=== PATIENT | female | born 1985 | race Caucasian/White ===

== ENCOUNTER 2019-11-08 10:54 | Emergency (ER) | payer BC, MEDICARE, MEDICAID, SELFPAY ==
--- NOTE | ~2019-11-08 | XR_ITS ---
EXAMINATION: XR chest 2V 11/08/2019 12:51 INDICATION: Chest pain PROCEDURE: 2 view chest COMPARISON: Comparison to multiple prior studies sequentially, with oldest reviewed study dated 01/17. FINDINGS: The lungs are clear. The cardiomediastinal silhouette is within normal limits. There are no pleural effusions. There is no pneumothorax suspected. IMPRESSION: 1: NO ACUTE CARDIOPULMONARY DISEASE. Reviewed, dictated and finalized at location A.
[2019-11-08 11:34] VITALS: PULSE 68; RESP 17; TEMP 36.1; O2SAT 99
--- NOTE | 2019-11-08 11:34 | ECG_ITS ---
Measurements Intervals [place] Rate: 63 P: 47 [place]: 144 QRS: 39 QRSD: 96 T: 28 QT: 388 QTc: 400 Interpretive Statements SINUS RHYTHM INCOMPLETE RIGHT BUNDLE BRANCH BLOCK BORDERLINE ECG Electronically Signed On 11-08-2019 11:38:43 CDT by Esdras Alfredo D.O.
[2019-11-08 11:47] LABS: Basophils Percent Auto 0.3 % (0.2-1.2); Eosinophils Absolute Auto 0.1 K/mm3 (0-0.3); Eosinophils Percent Auto 0.9 % (0-4.4); Hemoglobin 14.5 g/dL (12.0-15.0); Immature Granulocyte Absolute 0.01 K/mm3 (0.00-0.031); Immature Granulocyte Percent A 0.1 % (0-0.5); Lymphocytes Absolute Auto 2.01 K/mm3 (0.9-3.2); Lymphocytes Percent Auto 29.8 % (18.3-44.2); Mean Corpuscular Hemoglobin 28.3 pg (26-34); Mean Corpuscular Volume 85.9 fl (80-100); Monocytes Absolute Auto 0.3 K/mm3 (0.1-0.6); Monocytes Percent Auto 4.1 % (2.6-8.5); Neutrophils Absolute Auto 4.4 K/mm3 (1.3-6.7); Neutrophils Percent Auto 64.8 % (45.5-73.1); Platelet Count Result 249 k/mm3 (150-375); Red Blood Count 5.12 M/mm3 (4.2-5.4); Red Cell Distribution Width 11.9 % (11.5-14.5); White Blood Count 6.8 K/mm3 (4.5-10.0)
[2019-11-08 11:56] LABS: Anion Gap 8 mmol/L (8-16); Blood Urea Nitrogen 9 mg/dL (7-17); Calcium 9.5 mg/dL (8.4-10.2); Carbon Dioxide 23 mmol/L (22-30); Chloride 106 mmol/L (98-107); Estimated CRCL calculation 117 ml/min; Estimated Glomerular Filt Rate > 60; Glucose 100 mg/dL (65-105); Potassium 4.2 mmol/L (3.4-5.0); Sodium 137 mmol/L (137-145)
[2019-11-08 11:59] LABS: Prothrombin Time 12.5 Seconds (11.1-14.7)
[2019-11-08 12:00] LABS: Partial Thromboplastin Time 25.2 SECONDS (22.3-36.8)
[2019-11-08 12:08] LABS: Troponin I < 0.012 ng/mL (0.000-0.034)
[2019-11-08 13:28] VITALS: BP 120/65; PULSE 64; RESP 16; TEMP 35.9; O2SAT 98
[2019-11-08 16:18] VITALS: BP 133/84; PULSE 70; RESP 18; TEMP 36.4; O2SAT 100
[2019-11-08 16:48] VITALS: PULSE 55
[2019-11-08 17:23] LABS: Troponin I 0.013 ng/mL (0.000-0.034)
--- NOTE | 2019-11-08 17:31 | ED.CHESTPAIN ---
HPI - Chest Pain General Chief Complaint: Chest Pain Stated Complaint: mid chest pain Time Seen by Provider: 11/08/19 17:12 Source: patient Mode of arrival: ambulatory Limitations: no limitations History of Present Illness HPI narrative: This is a 34 year old female that presents to the ER for chest pain x 1 week. Reports it had been intermittent and then was more constant today. Reports the pain is burning and sharp. She tried some OTC medications today with little relief. Does report history of heartburn. Denies fever, cough, shortness of breath, lower extremity edema or recent travel or surgery. Related Data Home Medications Medication Instructions Recorded Confirmed bupropion HCl [Wellbutrin XL] 300 mg PO QAM 12/24/18 09/21/19 clonazepam [Klonopin] 0.5 mg PO BID 12/24/18 09/21/19 fluoxetine [Prozac] 40 mg PO DAILY 12/24/18 09/21/19 lamotrigine [Lamictal] 100 mg PO BID 12/24/18 09/21/19 levomefolate calcium 15 mg PO DAILY 12/24/18 09/21/19 [L-Methylfolate] prazosin 2 mg PO BID 12/24/18 09/21/19 propranolol 10 mg PO Q12H 12/24/18 09/21/19 topiramate [Topamax] 150 mg PO DAILY 12/24/18 09/21/19 trazodone 150 mg PO HS 12/24/18 09/21/19 lurasidone 40 mg tablet 80 mg PO DAILY tablet 09/21/19 09/21/19 Allergies Allergy/AdvReac Type Severity Reaction Status Date / Time bacitracin Allergy Mild unknown Verified 11/08/19 11:38 adhesive tape Allergy Unknown Unknown Verified 11/08/19 11:38 benzalkonium chloride Allergy Unknown uknown Verified 11/08/19 11:38 gramicidin D Allergy Unknown unknown Verified 11/08/19 11:38 hydrocortisone Allergy Unknown unknown Verified 11/08/19 11:38 iodine Allergy Unknown unknown Verified 11/08/19 11:38 neomycin Allergy Unknown unknown Verified 11/08/19 11:38 polymyxin B Allergy Unknown unknown Verified 11/08/19 11:38 shellfish derived Allergy Unknown unknown Verified 11/08/19 11:38 Sulfa (Sulfonamide Allergy Unknown uknown Verified 11/08/19 11:38 Antibiotics) SHELLFISH Allergy Severe Swelling Uncoded 11/08/19 11:38 BACITRACIN ZINC Allergy Unknown unknown Uncoded 11/08/19 11:38 NEOMYCIN SULFATE Allergy Unknown unknown Uncoded 11/08/19 11:38 POLYMYXIN B SULFATE Allergy Unknown uknown Uncoded 11/08/19 11:38 Review of Systems Review of Systems: Narrative: CONSTITUTIONAL: Denies fever CARDIOVASCULAR: Reports chest pain. Denies edema. RESPIRATORY: Denies cough or dyspnea. GASTROINTESTINAL: Reports abdominal pain, nausea. Denies vomiting GENITOURINARY: Denies dysuria All systems reviewed & are unremarkable except as noted in HPI and below PMFSH Social History Social History Smoking status: Never smoker Second hand tobacco smoke exposure: No Alcohol intake: never Gender identity (if verbalized by the patient): Female Exam Narrative: Exam Narrative: GENERAL: Well-appearing, obese, and in no acute distress. HEAD: Normocephalic, atraumatic. EYES: EOMI. CHEST: Clear to auscultation. No respiratory distress. No wheezes rales or rhonchi HEART: Regular rate and rhythm. No murmur heard. Normal peripheral pulses. ABDOMEN: Soft, nondistended, normal active bowel sounds. Tender to palpation in the epigastrium, without guarding EXTREMITIES: Normal range of motion. No edema. SKIN: Warm, dry, no rash. NEURO: No focal deficits. Alert and oriented x3. PSYCH: Normal mood and affect Course Vital Signs Vital signs: Vital Signs Temperature 97.0 F L 11/08/19 11:34 Pulse Rate 68 11/08/19 11:34 Respiratory Rate 17 11/08/19 11:34 Pulse Oximetry 99 11/08/19 11:34 Temperature 97.5 F L 11/08/19 16:18 Pulse Rate 55 L 11/08/19 16:48 Respiratory Rate 18 11/08/19 16:18 Blood Pressure 133/84 11/08/19 16:18 Pulse Oximetry 100 11/08/19 16:18 MDM - Chest Pain MDM Narrative Medical decision making narrative: Patient presents to the emergency department for burning epigastric/chest pain since this morning. She is afebril
[2019-11-08] MEDS: BELLADONNA ALK/PHENOB ELIX 10 ML, MAG HYDROX/ALUMINUM HYD/SIMETH 30 ML, LIDOCAINE HCL 2... PO (17:45)
[2019-11-08] MEDS: FAMOTIDINE 20 MG/2 ML VIAL IV PUSH (17:46)
[2019-11-08 17:48] LABS: Alanine Aminotransferase 14 U/L (4-35); Albumin Level 4.3 g/dL (3.5-5.1); Alkaline Phosphatase 80 U/L (38-126); Aspartate Amino Transferase 22 U/L (14-36); Bilirubin,Total 0.2 mg/dL (0.2-1.3); Lipase 33 U/L (23-300)
[2019-11-08 19:32] VITALS: BP 112/62
== END 2019-11-08 19:33 | disposition home or self-care (01) ==
PROVIDERS: Emergency Medicine; Physician Assistant; Emergency Provider Emergency Medicine; PCP Family Medicine
DX: R07.9 Chest pain, unspecified (principal); I45.10 Unspecified right bundle-branch block
CPT/HCPCS: 36415; 71046; 80048; 80076; 83690; 84484; 85025; 85610; 85730; 93005; 96374; 99284; A9270

== ENCOUNTER 2019-11-25 10:03 | Outpatient (CLI) | payer BC, MEDICARE, MEDICAID, SELFPAY ==
--- NOTE | 2019-11-25 10:11 | EST_ITS ---
Patient Info Name: Sharona Thompson Age: 34 years : 1985 Gender: Female Ht: 64 in Wt: 240 lbs BSA: 2.27 m2 Exam Date: 11/25/2019 11:18 AM Exam Location: [facility] Stress Patient Status: Outpatient Admit Date: 11/25/2019 Staff Ordering Physician: Kristin Slade PA-C Attending Provider: Veronica Weber MD Exercise Technologist: Lakesha Fong RDCS Exercise Physician: Esdras Alfredo DO Exam Type: CA stress test treadmill Study Info Indications R07.9 - Chest pain, unspecified A treadmill exercise stress test was performed. Summary 1. 1. Negative Eladio exercise stress test for ischemic ST changes by ECG criteria. However patient only achieved 71% MPHR which reduces sensitivity of the test. 2. 2. Appropriate HR response to exercise. 3. 3. Appropriate HR recovery at 1 minute post exercise. 4. 4. No imaging with stress testing. 5. 5. Patient informed of the above results. Protocol: Eladio Stress ECG Details Stage: REST Duration (min): 5 min : 24 sec Speed (mph): 0.0 Grade (%): 0 HR (bpm): 65 SBP (mmHg): 107 DBP (mmHg): 63 METS: --- Stage: REST Duration (min): 22 min : 7 sec Speed (mph): 0.0 Grade (%): 0 HR (bpm): 77 SBP (mmHg): 107 DBP (mmHg): 63 METS: --- Stage: STAGE 1 Duration (min): 1 min : 0 sec Speed (mph): 1.7 Grade (%): 10 HR (bpm): 96 SBP (mmHg): 107 DBP (mmHg): 63 METS: --- Stage: STAGE 1 Duration (min): 2 min : 0 sec Speed (mph): 1.7 Grade (%): 10 HR (bpm): 105 SBP (mmHg): 107 DBP (mmHg): 63 METS: --- Stage: STAGE 1 Duration (min): 3 min : 0 sec Speed (mph): 1.7 Grade (%): 10 HR (bpm): 111 SBP (mmHg): 107 DBP (mmHg): 63 METS: --- Stage: STAGE 2 Duration (min): 1 min : 0 sec Speed (mph): 2.5 Grade (%): 12 HR (bpm): 118 SBP (mmHg): 107 DBP (mmHg): 63 METS: --- Stage: STAGE 2 Duration (min): 2 min : 0 sec Speed (mph): 2.5 Grade (%): 12 HR (bpm): 126 SBP (mmHg): 107 DBP (mmHg): 63 METS: --- Stage: STAGE 2 Duration (min): 3 min : 0 sec Speed (mph): 2.5 Grade (%): 12 HR (bpm): 130 SBP (mmHg): 107 DBP (mmHg): 63 METS: --- Stage: STAGE 3 Duration (min): 0 min : 6 sec Speed (mph): 3.4 Grade (%): 14 HR (bpm): 130 SBP (mmHg): 107 DBP (mmHg): 63 METS: --- Stage: RECOVERY Duration (min): 0 min : 53 sec Speed (mph): 0.0 Grade (%): 0 HR (bpm): 112 SBP (mmHg): 122 DBP (mmHg): 46 METS: --- Stage: RECOVERY Duration (min): 1 min : 53 sec Speed (mph): 0.0 Grade (%): 0 HR (bpm): 93 SBP (mmHg): 122 DBP (mmHg): 46 METS: --- Stage: RECOVERY Duration (min): 2 min : 53 sec Speed (mph): 0.0 Grade (%): 0 HR (bpm): 85 SBP (mmHg): 138 DBP (mmHg): 51 METS: --- Stage: RECOVERY Duration (min): 3 min : 53 se
== END 2019-11-25 10:04 | disposition home or self-care (01) ==
LOC: ANHCARD 10:06
PROVIDERS: PCP Family Medicine; Visit Provider Family Medicine
DX: R07.9 Chest pain, unspecified (principal)
CPT/HCPCS: 93017

== ENCOUNTER 2020-11-19 02:35 | Emergency (ER) | payer OTHER, SELFPAY ==
[2020-11-19 02:44] VITALS: BP 149/86; PULSE 76; RESP 16; TEMP 36.2; O2SAT 100
[2020-11-19] MEDS: SODIUM CHLORIDE 0.9% IV 1,000 ML 999 ML IV CONT (04:01)
[2020-11-19 04:40] LABS: Anion Gap 11 mmol/L (8-16); Blood Urea Nitrogen 12 mg/dL (7-17); Calcium 9.6 mg/dL (8.4-10.2); Carbon Dioxide 25 mmol/L (22-30); Chloride 106 mmol/L (98-107); Creatine Kinase 362 U/L (30-135); Estimated CRCL calculation 105 ml/min; Estimated Glomerular Filt Rate > 60; Glucose 109 mg/dL (65-110); Potassium 3.7 mmol/L (3.4-5.0); Sodium 142 mmol/L (137-145)
--- NOTE | 2020-11-19 05:24 | ED.GENADULT ---
HPI - General Adult General Chief complaint: Extremity Injury, Lower Stated complaint: bilat leg pain Time Seen by Provider: 11/19/20 02:51 History of Present Illness HPI narrative: Patient is a 35-year-old female who presents ER with pain in her thighs. Patient began working out with a personal injury attorney and did a lot of lower body exercises yesterday. Since then she has developed increased pain in her thighs especially when she walks. No numbness or tingling to her lower extremities. She has tried taking [id number] pain medications but they just do not work. No physical trauma to her leg other than overworking herself. She has been trying to walk to loosen things up but has not helped. Related Data Home Medications Medication Instructions Recorded Confirmed clonazepam [Klonopin] 0.5 mg PO BID 12/24/18 03/29/20 fluoxetine [Prozac] 40 mg PO DAILY 12/24/18 03/29/20 lamotrigine [Lamictal] 100 mg PO BID 12/24/18 03/29/20 prazosin 2 mg PO BID 12/24/18 03/29/20 topiramate [Topamax] 150 mg PO DAILY 12/24/18 03/29/20 trazodone 150 mg PO HS 12/24/18 03/29/20 lurasidone 40 mg tablet 80 mg PO DAILY tablet 09/21/19 03/29/20 propranolol 10 mg tablet 20 mg PO Q12H tablet 11/10/19 03/29/20 Allergies Allergy/AdvReac Type Severity Reaction Status Date / Time bacitracin Allergy Mild unknown Verified 03/29/20 16:20 adhesive tape Allergy Unknown Unknown Verified 03/29/20 16:20 benzalkonium chloride Allergy Unknown uknown Verified 03/29/20 16:20 gramicidin D Allergy Unknown unknown Verified 03/29/20 16:20 hydrocortisone Allergy Unknown unknown Verified 03/29/20 16:20 iodine Allergy Unknown unknown Verified 03/29/20 16:20 neomycin Allergy Unknown unknown Verified 03/29/20 16:20 polymyxin B Allergy Unknown unknown Verified 03/29/20 16:20 shellfish derived Allergy Unknown unknown Verified 03/29/20 16:20 Sulfa (Sulfonamide Allergy Unknown uknown Verified 03/29/20 16:20 Antibiotics) SHELLFISH Allergy Severe Swelling Uncoded 03/29/20 16:20 BACITRACIN ZINC Allergy Unknown unknown Uncoded 03/29/20 16:20 NEOMYCIN SULFATE Allergy Unknown unknown Uncoded 03/29/20 16:20 POLYMYXIN B SULFATE Allergy Unknown uknown Uncoded 03/29/20 16:20 Review of Systems Review of Systems: All systems reviewed & are unremarkable except as noted in HPI and below Constitutional: Constitutional: Denies chills and Denies fever(s) Genitourinary: Genitourinary: Denies hematuria, Denies nocturia and Denies dysuria Musculoskeletal: Musculoskeletal: Reports myalgias, Denies arthralgias, Denies joint swelling and Reports muscle cramps Neurologic: Denies focal weakness and Denies numbness PMFSH Past Medical History Medical History (Updated 11/19/20 @ 05:37 by Sameer Horton MD) Hyperlipidemia Mood disorder Prediabetes Surgical History Surgical History H/O adenoidectomy H/O: hysterectomy (~2019) Ingrown toenail Social History Social History Smoking status: Never smoker Second hand tobacco smoke exposure: No Alcohol intake: never Gender identity (if verbalized by the patient): Female Exam Narrative: GENERAL: Well-appearing, well-nourished, and in no acute distress. HEAD: Normocephalic, atraumatic. CHEST: Clear to auscultation. No respiratory distress. HEART: Regular rate and rhythm. Normal peripheral pulses. EXTREMITIES: Normal range of motion. No edema. SKIN: Warm, dry, no rash. NEURO: Alert and oriented x3. PSYCH: Normal mood and affect. Course Course Emergency Course: Patient hydrated. Informed results. CK slightly elevated. Discharge home. Vital Signs Vital signs: Vital Signs Temperature 97.1 F L 11/19/20 02:44 Pulse Rate 76 11/19/20 02:44 Respiratory Rate 16 11/19/20 02:44 Blood Pressure 149/86 H 11/19/20 02:44 Pulse Oximetry 100 11/19/20 02:44 Temperature 97.1 F L 11/19/20 02:44 Pul
[2020-11-19 06:10] VITALS: BP 140/80; PULSE 77; RESP 16; O2SAT 100
== END 2020-11-19 06:12 | disposition home or self-care (01) ==
PROVIDERS: Emergency Provider Emergency Medicine; PCP Family Medicine
DX: M62.82 Rhabdomyolysis (principal); E78.5 Hyperlipidemia, unspecified; R73.03 Prediabetes; F39 Unspecified mood [affective] disorder
CPT/HCPCS: 36415; 80048; 82550; 96360; 99283; J7030

== ENCOUNTER 2021-01-05 11:31 | Emergency (ER) | payer OTHER, SELFPAY ==
[2021-01-05 11:44] VITALS: BP 120/71; PULSE 86; RESP 20; TEMP 36.9; O2SAT 100
[2021-01-05 12:00] VITALS: BP 120/71; PULSE 86; RESP 20; TEMP 36.9; O2SAT 100
--- NOTE | 2021-01-05 12:02 | ED.URI ---
HPI - URI/Sore Throat General Chief Complaint: Upper Respiratory Infection Stated Complaint: Headache,Sore Throat Time Seen by Provider: 01/05/21 12:02 Source: patient, RN notes reviewed and old records reviewed Mode of arrival: ambulatory Limitations: no limitations History of Present Illness HPI Narrative: 35 year old female who presents to [facility] care with complaints of headache, nausea,sore throat and ear pain and also some stuffy nose since Friday. She states that she saw her PCP and was given Z-Pack an nasal spray on the but feels her symptoms are getting worse. She reports that she has been having some chills and body aches. She states that she had a negative COVID test and has been vaccinated with booster. She states that she has not had flu vaccine yet and is concerned for flu. MD elicited complaint: sore throat, rhinorrhea and nasal congestion Related Data Home Medications Medication Instructions Recorded Confirmed prazosin 2 mg PO BID 12/24/18 01/03/21 trazodone 150 mg PO HS 12/24/18 01/03/21 Allergies Allergy/AdvReac Type Severity Reaction Status Date / Time bacitracin Allergy Mild unknown Verified 01/03/21 10:41 adhesive tape Allergy Unknown Unknown Verified 01/03/21 10:41 benzalkonium chloride Allergy Unknown uknown Verified 01/03/21 10:41 gramicidin D Allergy Unknown unknown Verified 01/03/21 10:41 hydrocortisone Allergy Unknown unknown Verified 01/03/21 10:41 iodine Allergy Unknown unknown Verified 01/03/21 10:41 neomycin Allergy Unknown unknown Verified 01/03/21 10:41 polymyxin B Allergy Unknown unknown Verified 01/03/21 10:41 shellfish derived Allergy Unknown unknown Verified 01/03/21 10:41 Sulfa (Sulfonamide Allergy Unknown uknown Verified 01/03/21 10:41 Antibiotics) simvastatin AdvReac Mild Unknown Verified 01/03/21 10:47 SHELLFISH Allergy Severe Swelling Uncoded 01/03/21 10:41 BACITRACIN ZINC Allergy Unknown unknown Uncoded 01/03/21 10:41 NEOMYCIN SULFATE Allergy Unknown unknown Uncoded 01/03/21 10:41 POLYMYXIN B SULFATE Allergy Unknown uknown Uncoded 01/03/21 10:41 Review of Systems Review of Systems: CONSTITUTIONAL: Denies fever, states chills, or sweats. EYES: Denies visual changes, redness, or discharge. ENT: positive for rhinorrhea, congestion, sore throat, or otalgia. CARDIOVASCULAR: Denies chest pain, palpitations, or edema. RESPIRATORY: Denies cough or dyspnea. GASTROINTESTINAL: Denies abdominal pain, nausea, vomiting, or diarrhea. GENITOURINARY: Denies dysuria or hematuria. SKIN: Denies rash or itching. MUSCULOSKELETAL: Denies back pain, joint pain, generalized body aches NEUROLOGIC: Denies headache, numbness, or weakness. PSYCHIATRIC:Positive for history of anxiety or depression. All systems reviewed & are unremarkable except as noted in HPI and below PMFSH Past Medical History Medical History (Updated 01/08/21 @ 07:55 by Juju Jacob NP) Anxiety and depression GERD (gastroesophageal reflux disease) Hx of migraines Hyperlipidemia Mood disorder Prediabetes Seizures Surgical History Surgical History (Updated 01/08/21 @ 07:57 by Juju Jacob NP) H/O adenoidectomy H/O: hysterectomy (~2019) History of tonsillectomy Ingrown toenail Previous section x2 Social History Social History Second hand tobacco smoke exposure: No Alcohol intake: never Substance use: never Substance use type: does not use Gender identity (if verbalized by the patient): Female Comments At time of signature, agree with nursing past medical, surgical, social and family history. There is no relevant family history pertinent to the presenting complaint Exam Narrative: GENERAL: Well-appearing, well-nourished, and in no acute distress. HEAD: Normocephalic, atraumatic. EYES: PERRLA and EOMI. ENT: Nares red with clear rhinorrhea no epistaxis. Mucous membranes moist.TM's normal with good light reflex, throat mild redn
== END 2021-01-05 12:36 | disposition home or self-care (01) ==
PROVIDERS: Emergency Provider Registered Nurse; PCP Family Medicine
DX: J06.9 Acute upper respiratory infection, unspecified (principal); K21.9 Gastro-esophageal reflux disease without esophagitis; E78.5 Hyperlipidemia, unspecified; R73.03 Prediabetes
CPT/HCPCS: 87081; 87804; 87880; 99213; G0463

== ENCOUNTER 2021-01-22 14:17 | Emergency (ER) | payer OTHER, SELFPAY ==
--- NOTE | ~2021-01-22 | XR_ITS ---
EXAMINATION: XR chest 1V portable INDICATION: Cough TECHNIQUE: Portable AP chest at 1629 hours COMPARISON: 11/08/2019 FINDINGS: The lungs are free of acute opacities. There is no pleural effusion or pneumothorax. The ca rdiomediastinal silhouette is normal. The visualized bones and soft tissues are unremarkable. IMPRESSION: 1. No acute cardiopulmonary abnormality. Reviewed, dictated and finalized at location A. BLOCK [employer]KER
[2021-01-22 14:27] VITALS: BP 143/85; PULSE 80; RESP 16; TEMP 35.7; O2SAT 100
--- NOTE | 2021-01-22 16:33 | ED.GENADULT ---
HPI - General Adult General Chief complaint: Upper Respiratory Infection Stated complaint: cough Time Seen by Provider: 01/22/21 16:16 Source: patient History of Present Illness HPI narrative: Patient is a 35 y/o female complaining of mild cough for about 6 days. She states that she is coughing up clear phlegm. She took Mucinex, which helps some. She also has headache, bodyache and vomiting. She states that she had COVID test 5 days ago and it was negative. However, all her other family members including her and kids tested positive. Related Data Home Medications Medication Instructions Recorded Confirmed prazosin 2 mg PO BID 12/24/18 01/03/21 trazodone 150 mg PO HS 12/24/18 01/03/21 Allergies Allergy/AdvReac Type Severity Reaction Status Date / Time bacitracin Allergy Mild unknown Verified 01/03/21 10:41 adhesive tape Allergy Unknown Unknown Verified 01/03/21 10:41 benzalkonium chloride Allergy Unknown uknown Verified 01/03/21 10:41 gramicidin D Allergy Unknown unknown Verified 01/03/21 10:41 hydrocortisone Allergy Unknown unknown Verified 01/03/21 10:41 iodine Allergy Unknown unknown Verified 01/03/21 10:41 neomycin Allergy Unknown unknown Verified 01/03/21 10:41 polymyxin B Allergy Unknown unknown Verified 01/03/21 10:41 shellfish derived Allergy Unknown unknown Verified 01/03/21 10:41 Sulfa (Sulfonamide Allergy Unknown uknown Verified 01/03/21 10:41 Antibiotics) simvastatin AdvReac Mild Unknown Verified 01/03/21 10:47 SHELLFISH Allergy Severe Swelling Uncoded 01/03/21 10:41 BACITRACIN ZINC Allergy Unknown unknown Uncoded 01/03/21 10:41 NEOMYCIN SULFATE Allergy Unknown unknown Uncoded 01/03/21 10:41 POLYMYXIN B SULFATE Allergy Unknown uknown Uncoded 01/03/21 10:41 Review of Systems Constitutional: Constitutional: Denies chills, Denies fever(s), Reports headache(s) and Denies weakness Eyes: Eyes: Denies blurry vision ENT: Reports headache(s) and Denies neck pain Cardiovascular: Cardiovascular: Denies chest pain and Denies dyspnea Respiratory: Respiratory: Reports cough and Denies dyspnea Gastrointestinal: Gastrointestinal: Denies abdominal pain, Denies diarrhea, Reports nausea and Reports vomiting Genitourinary: Genitourinary: Denies hematuria and Denies dysuria Musculoskeletal: Musculoskeletal: Denies back pain, Reports myalgias and Denies neck pain Neurologic: Reports headache(s) and Denies weakness PMFSH Past Medical History Medical History Anxiety and depression GERD (gastroesophageal reflux disease) Hx of migraines Hyperlipidemia Mood disorder Prediabetes Seizures Surgical History Surgical History H/O adenoidectomy H/O: hysterectomy (~2019) History of tonsillectomy Ingrown toenail Previous section x2 Social History Social History Second hand tobacco smoke exposure: No Alcohol intake: never Substance use: never Substance use type: does not use Gender identity (if verbalized by the patient): Female Exam Const: General: no acute distress and well developed Orientation/consciousness: oriented to person, oriented to place, oriented to time and patient oriented x3 HENMT: Head: normocephalic Ears: external ears normal General nose exam: Normal external nose present Eyes: General: appearance normal, both eyes and all related structures Conjunctivae: conjunctivae normal Neck: Neck: normal visual inspection and full ROM Chest: Chest palpation & inspection: normal inspection of the chest and no tenderness Resp: Effort & Inspection: normal respiratory effort Auscultation: clear to auscultation bilaterally Cardio: Rate: regular rate Rhythm: regular rhythm GI: GI Palp: No abdominal tenderness and Yes Soft to palpation Skin: General skin exam: normal color and turgor normal Neuro: General: oriented t
[2021-01-22] MEDS: ONDANSETRON INJ 4 MG/2 ML VIAL IV PUSH (16:36)
[2021-01-22] MEDS: SODIUM CHLORIDE 0.9% IV 1,000 ML 999 ML IV CONT (16:36)
--- NOTE | 2021-01-22 17:04 | PC.NURSE ---
This RN and master motorcycle technician have tried to obtain lab order from pt. Pt is a difficult stick. Will have another RN attempt
[2021-01-22 17:17] LABS: Add Urine Microscopic? YES; Appearance Urine Cloudy (Clear); Bilirubin Urine Negative (Negative); Color Urine Amber (Yellow); Glucose Urine UA Negative (Negative); Ketones Urine Negative (Negative); Leukocyte Esterase Ur Trace LEU/UL (Negative); Mucus Urine Heavy /lpf; Nitrate Urine Negative (Negative); Protein Urine 1+ mg/dL (Negative); Squamous Epithelial Cell Urine Many /hpf (Few); WBC Clumps Urine Present /HPF; WBC Urine 21-30 /hpf
[2021-01-22 17:22] LABS: Blood Urine Negative (Negative)
[2021-01-22 17:51] LABS: Basophils Percent Auto 0.4 % (0.2-1.2); Eosinophils Percent Auto 0.3 % (0-4.4); Lymphocytes Absolute Auto 1.63 K/mm3 (0.9-3.2); Lymphocytes Percent Auto 23.3 % (18.3-44.2); Mean Corpuscular HGB Conc 34.9 g/dl (32-36); Mean Corpuscular Hemoglobin 29.2 pg (26-34); Mean Corpuscular Volume 83.8 fl (80-100); Monocytes Absolute Auto 0.3 K/mm3 (0.1-0.6); Monocytes Percent Auto 3.7 % (2.6-8.5); Neutrophils Absolute Auto 5.1 K/mm3 (1.3-6.7); Neutrophils Percent Auto 72.3 % (45.5-73.1); Platelet Count Result 205 k/mm3 (150-375); Red Blood Count 5.13 M/mm3 (4.2-5.4); Red Cell Distribution Width 11.9 % (11.5-14.5)
[2021-01-22 18:03] LABS: Alanine Aminotransferase 52 U/L (4-35); Albumin Level 4.3 g/dL (3.5-5.1); Alkaline Phosphatase 77 U/L (38-126); Anion Gap 12 mmol/L (8-16); Aspartate Amino Transferase 38 U/L (14-36); Bilirubin,Total 0.5 mg/dL (0.2-1.3); Blood Urea Nitrogen 17 mg/dL (7-17); Calcium 9.3 mg/dL (8.4-10.2); Carbon Dioxide 23 mmol/L (22-30); Chloride 105 mmol/L (98-107); Estimated CRCL calculation 121 ml/min; Estimated Glomerular Filt Rate > 60; Glucose 115 mg/dL (65-110); Potassium 4.4 mmol/L (3.4-5.0); Sodium 140 mmol/L (137-145)
[2021-01-22 18:30] VITALS: BP 136/90; PULSE 79; RESP 18; O2SAT 100
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
[2021-01-23 20:27] LABS: SARS-CoV-2 RNA PCR Negative
== END 2021-01-22 20:08 | disposition home or self-care (01) ==
PROVIDERS: Emergency Provider Emergency Medicine; PCP Family Medicine
DX: J06.9 Acute upper respiratory infection, unspecified (principal); Z20.822 Contact with and (suspected) exposure to COVID-19; F41.9 Anxiety disorder, unspecified; F32.9 Major depressive disorder, single episode, unspecified; K21.9 Gastro-esophageal reflux disease without esophagitis; G40.909 Epilepsy, unspecified, not intractable, without status epilepticus; Z79.899 Other long term (current) drug therapy; Z79.51 Long term (current) use of inhaled steroids
CPT/HCPCS: 36415; 71045; 80053; 81001; 81025; 85025; 87086; 87088; 96361; 96374; 99284; C9803; J2405; J7030; U0003; U0005

== ENCOUNTER 2021-04-17 08:03 | Emergency (ER) | payer MEDICARE, SELFPAY ==
--- NOTE | 2021-04-17 08:04 | ED.URI ---
HPI - URI/Sore Throat General Chief Complaint: Upper Respiratory Infection Stated Complaint: Ear Pain,Sore throat Source: patient, family, RN notes reviewed and old records reviewed Mode of arrival: ambulatory Limitations: no limitations History of Present Illness HPI Narrative: 35-year-old female presents to the [facility] with complaints of left ear pain, sore throat, nasal congestion, sinus headache since Friday, 3 days. Reports felling like she had a fever. Has taken aspirin for pain relief. Denies shortness of breath, chest pain. No abdominal pain, nausea, vomiting. Requesting a work note MD elicited complaint: sore throat, nasal congestion, sinus pain and other (left ear pain) Related Data Allergies Allergy/AdvReac Type Severity Reaction Status Date / Time iodine Allergy Severe Anaphylactic Verified 04/17/21 08:30 Shock shellfish derived Allergy Severe Anaphylactic Verified 04/17/21 08:30 Shock Sulfa (Sulfonamide Allergy Intermediate Rash Verified 04/17/21 08:30 Antibiotics) adhesive tape Allergy Mild Rash Verified 04/17/21 08:30 bacitracin Allergy Mild Rash Verified 04/17/21 08:30 benzalkonium chloride Allergy Mild Rash Verified 04/17/21 08:30 gramicidin D Allergy Mild Rash Verified 04/17/21 08:30 hydrocortisone Allergy Mild Rash Verified 04/17/21 08:30 neomycin Allergy Mild Rash Verified 04/17/21 08:30 polymyxin B Allergy Mild Rash Verified 04/17/21 08:30 simvastatin AdvReac Mild Rash Verified 04/17/21 08:30 SHELLFISH Allergy Severe Anaphylactic Uncoded 04/17/21 08:30 Shock BACITRACIN ZINC Allergy Mild Rash Uncoded 04/17/21 08:30 NEOMYCIN SULFATE Allergy Mild Rash Uncoded 04/17/21 08:30 POLYMYXIN B SULFATE Allergy Mild Rash Uncoded 04/17/21 08:30 Review of Systems Review of Systems: All systems reviewed & are unremarkable except as noted in HPI and below Constitutional: Constitutional: Reports no additional constitutional complaints, Denies chills, Denies fever(s) and Denies headache(s) Eyes: Eyes: Reports no additional eye complaints ENT: Reports as per HPI, Denies change in voice, Denies vertigo, Denies dizziness, Reports headache(s) (Above left eye, pressure), Reports nasal congestion, Denies nasal discharge, Denies neck pain and Reports sore throat Comments: Left ear pain Cardiovascular: Cardiovascular: Reports no additional cardiovascular complaints, Denies chest pain, Denies syncope, Denies rapid heart rate and Denies dyspnea Respiratory: Respiratory: Reports no additional respiratory complaints, Denies cough, Denies dyspnea and Denies wheezing Gastrointestinal: Gastrointestinal: Reports no additional gastrointestinal complaints, Denies abdominal pain, Denies diarrhea, Denies nausea and Denies vomiting Musculoskeletal: Musculoskeletal: Reports no additional musculoskeletal complaints and Denies numbness Integumentary/Breasts: Skin/Breast: Reports system reviewed and no additional complaints, except as docu Neurologic: Reports system reviewed and no additional complaints, except as documented, Denies vertigo, Denies dizziness, Denies syncope, Denies headache(s), Denies focal weakness and Denies numbness Psychiatric: Psychiatric: Reports no additional psychiatric complaints Allergic/Immunologic: Allergic/Immunologic: Reports no additional allergic/immunologic complaints and Denies wheezing PMFSH Past Medical History Medical History Anxiety and depression GERD (gastroesophageal reflux disease) Hx of migraines Hyperlipidemia Mood disorder Prediabetes Seizures Surgical History Surgical History H/O adenoidectomy H/O: hysterectomy (~2019) History of tonsillectomy Ingrown toenail Previous section x2 Social History Social History Second hand tobacco smoke exposure: No Alcohol intake: never Substance use: never S
[2021-04-17 08:17] VITALS: BP 139/72; PULSE 65; RESP 18; TEMP 36.3; O2SAT 100
== END 2021-04-17 08:35 | disposition home or self-care (01) ==
PROVIDERS: Emergency Provider Nurse Practitioner; PCP Family Medicine
DX: H65.05 Acute serous otitis media, recurrent, left ear (principal); J02.9 Acute pharyngitis, unspecified; K21.9 Gastro-esophageal reflux disease without esophagitis; E78.5 Hyperlipidemia, unspecified; R73.03 Prediabetes
CPT/HCPCS: 87081; 87880; 99213; G0463

== ENCOUNTER 2021-05-16 05:12 | Emergency (ER) | payer MEDICARE, SELFPAY ==
[2021-05-16 05:15] VITALS: BP 154/110; PULSE 84; RESP 20; TEMP 35.9; O2SAT 99
--- NOTE | 2021-05-16 05:28 | ED.GENADULT ---
HPI - General Adult General Chief complaint: Unspecified Stated complaint: feeling hypoglycemic Time Seen by Provider: 05/16/21 05:16 Source: patient History of Present Illness HPI narrative: 35-year-old female history of diabetes presented to the emergency department for evaluation of feeling hypoglycemic. Patient was fasting for blood testing this morning and she began to feel weak and shaky. Related Data Home Medications Medication Instructions Recorded Confirmed clonazepam 0.5 mg tablet 0.5 mg PO QHS 05/15/21 05/15/21 fluoxetine 20 mg capsule 20 mg PO DAILY 05/15/21 05/15/21 lurasidone 80 mg tablet 80 mg PO QPM 05/15/21 05/15/21 propranolol 10 mg tablet 10 mg PO Q12H 05/15/21 05/15/21 topiramate 50 mg tablet 50 mg PO BID 05/15/21 05/15/21 trazodone 100 mg tablet 100 mg PO QHS PRN 05/15/21 05/15/21 Allergies Allergy/AdvReac Type Severity Reaction Status Date / Time iodine Allergy Severe Anaphylactic Verified 04/17/21 08:30 Shock shellfish derived Allergy Severe Anaphylactic Verified 04/17/21 08:30 Shock Sulfa (Sulfonamide Allergy Intermediate Rash Verified 04/17/21 08:30 Antibiotics) adhesive tape Allergy Mild Rash Verified 04/17/21 08:30 bacitracin Allergy Mild Rash Verified 04/17/21 08:30 benzalkonium chloride Allergy Mild Rash Verified 04/17/21 08:30 gramicidin D Allergy Mild Rash Verified 04/17/21 08:30 hydrocortisone Allergy Mild Rash Verified 04/17/21 08:30 neomycin Allergy Mild Rash Verified 04/17/21 08:30 polymyxin B Allergy Mild Rash Verified 04/17/21 08:30 simvastatin AdvReac Mild Rash Verified 04/17/21 08:30 SHELLFISH Allergy Severe Anaphylactic Uncoded 04/17/21 08:30 Shock BACITRACIN ZINC Allergy Mild Rash Uncoded 04/17/21 08:30 NEOMYCIN SULFATE Allergy Mild Rash Uncoded 04/17/21 08:30 POLYMYXIN B SULFATE Allergy Mild Rash Uncoded 04/17/21 08:30 Review of Systems Review of Systems: CONSTITUTIONAL: Generalized shakiness EYES: Denies visual changes, redness, or discharge. ENT: Denies rhinorrhea, congestion, sore throat, or otalgia. CARDIOVASCULAR: Denies chest pain, palpitations, or edema. RESPIRATORY: Denies cough or dyspnea. GASTROINTESTINAL: Denies abdominal pain, nausea, vomiting, or diarrhea. GENITOURINARY: Denies dysuria or hematuria. SKIN: Denies rash or itching. MUSCULOSKELETAL: Denies back pain, joint pain, or myalgia. NEUROLOGIC: Denies headache, numbness, or weakness. All systems reviewed & are unremarkable except as noted in HPI and below PMFSH Past Medical History Medical History Anxiety and depression GERD (gastroesophageal reflux disease) Hx of migraines Hyperlipidemia Mood disorder Prediabetes Seizures Surgical History Surgical History H/O adenoidectomy H/O: hysterectomy (~2019) History of tonsillectomy Ingrown toenail Previous section x2 Social History Social History (Updated 05/15/21 @ 09:12 by Kandice Matthew [facility]) Second hand tobacco smoke exposure: No Alcohol intake: never Substance use: never Substance use type: does not use Gender identity (if verbalized by the patient): Female Exam Narrative: APPEARANCE: Well appearing, no pain, no distress, well-nourished. HEAD: normocephalic, atraumatic. EYES: PERRLA/EOMI, conjunctivae clear. NOSE: Normal no drainage NECK: Supple. No adenopathy, no masses. RESPIRATORY: Airway patent, respirations nonlabored. Clear to auscultation bilaterally, no rales, rhonchi, wheezing. CARDIOVASCULAR: Regular rate and rhythm without murmurs rubs or gallops. ABDOMINAL: Soft, nontender, nondistended, normal bowel sounds MUSCULOSKELETAL: Moves all extremities. Strength/ROM intact, No edema, No calf tenderness. NEURO: Alert. Cranial nerves II through XII intact. grossly intact SKIN: Warm, dry. Normal Color Course Course Emergency Course: Patient's labs are within normal limits. Roz
[2021-05-16 05:30] LABS: Glucose Point of Care 119 mg/dl (65-105)
[2021-05-16 05:40] LABS: Basophils Percent Auto 0.6 % (0.2-1.2); Eosinophils Percent Auto 0.6 % (0-4.4); Hematocrit 43.5 % (37.0-47.0); Hemoglobin 14.7 g/dL (12.0-15.0); Immature Granulocyte Absolute 0.01 K/mm3 (0.00-0.031); Immature Granulocyte Percent A 0.2 % (0-0.5); Lymphocytes Absolute Auto 2.37 K/mm3 (0.9-3.2); Lymphocytes Percent Auto 37.7 % (18.3-44.2); Mean Corpuscular HGB Conc 33.8 g/dl (32-36); Mean Corpuscular Hemoglobin 28.8 pg (26-34); Mean Corpuscular Volume 85.3 fl (80-100); Mean Platelet Volume 9.9 fl (7.4-10.4); Monocytes Absolute Auto 0.4 K/mm3 (0.1-0.6); Monocytes Percent Auto 6.8 % (2.6-8.5); Neutrophils Absolute Auto 3.4 K/mm3 (1.3-6.7); Neutrophils Percent Auto 54.1 % (45.5-73.1); Platelet Count Result 229 k/mm3 (150-375); White Blood Count 6.3 K/mm3 (4.5-10.0)
[2021-05-16 05:48] LABS: Alanine Aminotransferase 15 U/L (4-35); Albumin Level 4.7 g/dL (3.5-5.1); Alkaline Phosphatase 75 U/L (38-126); Anion Gap 10 mmol/L (8-16); Aspartate Amino Transferase 22 U/L (14-36); Bilirubin,Total 0.6 mg/dL (0.2-1.3); Blood Urea Nitrogen 15 mg/dL (7-17); Calcium 9.4 mg/dL (8.4-10.2); Carbon Dioxide 24 mmol/L (22-30); Chloride 105 mmol/L (98-107); Estimated Glomerular Filt Rate > 60; Glucose 122 mg/dL (65-110); Potassium 3.9 mmol/L (3.4-5.0); Sodium 139 mmol/L (137-145)
[2021-05-16 06:00] LABS: Appearance Urine Clear (Clear); Bilirubin Urine Negative (Negative); Blood Urine Negative (Negative); Color Urine Yellow (Yellow); Glucose Urine UA Negative (Negative); Ketones Urine Negative (Negative); Leukocyte Esterase Ur Negative LEU/UL (Negative); Nitrate Urine Negative (Negative); Protein Urine Negative (Negative); Specific Grav Ur >= 1.030 (1.001-1.035); Urobilinogen Urine 0.2 mg/dL (<2.0); pH Urine 5.5 (5.0-9.0)
[2021-05-16 06:01] LABS: Mucus Urine Few /lpf; RBC Urine 0-2 /hpf (0-2); Squamous Epithelial Cell Urine Many /hpf (Few)
[2021-05-16 06:02] LABS: Add Urine Microscopic? YES
[2021-05-16 06:52] VITALS: BP 140/72; PULSE 72; RESP 16; O2SAT 100
== END 2021-05-16 06:55 | disposition home or self-care (01) ==
LOC: ANHED 06:18
PROVIDERS: Emergency Provider Emergency Medicine; PCP Family Medicine
DX: R53.1 Weakness (principal); F41.9 Anxiety disorder, unspecified; F32.9 Major depressive disorder, single episode, unspecified; K21.9 Gastro-esophageal reflux disease without esophagitis; G40.909 Epilepsy, unspecified, not intractable, without status epilepticus
CPT/HCPCS: 36415; 80053; 81001; 82948; 84443; 85025; 87086; 87088; 99283

== ENCOUNTER → 2021-05-22 07:18 | Outpatient (CLI) | payer MEDICARE, SELFPAY ==
--- NOTE | ~2021-05-22 | XR_ITS ---
EXAMINATION: [id number]_[id number]_CR DATE: 05/22/2021 08:00 INDICATION: Right foot pain. TECHNIQUE: 3 views of right foot with weightbearing were obtained. COMPARISON: None. FINDINGS: There is mild hallux valgus. No fracture. There is mild osteoarthritis of first metatarsoph alangeal joint. There is an enthesophyte at posterior aspect of calcaneal tuberosity. IMPRESSION: 1. Mild hallux valgus. 2. Mild osteoarthritis of first metatarsophalangeal joint. Reviewed, dictated and finalized at location A.
--- NOTE | ~2021-05-22 | XR_ITS ---
EXAMINATION: [id number]_CR DATE: 05/22/2021 08:00 INDICATION: Left foot pain. TECHNIQUE: 3 views of left foot with weightbearing were obtained. COMPARISON: None. FINDINGS: There is moderate hallux valgus. No fracture. There is mild osteoarthritis of first metatar sophalangeal joint. There is an enthesophyte at posterior aspect of calcaneal tuberosity. IMPRESSION: 1. Moderate hallux valgus. 2. Mild osteoarthritis of first metatarsophalangeal joint. Reviewed, dictated and finalized at location A.
== END ==
PROVIDERS: PCP Family Medicine; Visit Provider Podiatrist Foot & Ankle Surgery
DX: M79.672 Pain in left foot (principal); M79.671 Pain in right foot; M19.072 Primary osteoarthritis, left ankle and foot; M19.071 Primary osteoarthritis, right ankle and foot; M20.12 Hallux valgus (acquired), left foot; M20.11 Hallux valgus (acquired), right foot
CPT/HCPCS: 73630

== ENCOUNTER 2021-05-31 18:06 | Emergency (ER) | payer MEDICARE, SELFPAY ==
[2021-05-31] VITALS (16 sets, daily range): BP systolic 131–145; BP diastolic 72–126; PULSE 95; RESP 18; TEMP 36.7; O2SAT 97–100
--- NOTE | ~2021-05-31 | XR_ITS ---
XR chest 1V portable DATE: 05/31/2021 19:31 INDICATION: Cough TECHNIQUE: Portable AP chest on May 31, 2021 at 1925 hours COMPARISON: January 22, 2021 portable AP chest FINDINGS: New patchy infiltrate in the right mid to upper lung. Normal heart size. No hilar or mediastinal enlargement. No pulmonary vascular congestion, pleural eff usion or pneumothorax. IMPRESSION: Patchy infiltrate in the right mid-upper lung suggesting pneumonia Reviewed, dictated and finalized at location A.
--- NOTE | ~2021-05-31 | CT_ITS ---
EXAMINATION: CT abdomen pelvis wo con DATE: 05/31/2021 19:40 INDICATION: Abdominal pain, nausea, vomiting and diarrhea starting 3 days ago. TECHNIQUE: Computed tomography (CT) of the abdomen and pelvis was performed without intravenous contr ast. Automated exposure control and iterative reconstruction technique were employed. Exam dose: 142 7.78 mGy-cm total exam DLP. COMPARISON: None. FINDINGS: There is patchy infiltrate in the right lower lobe; consider pneumonia and aspiration pneum onitis. Normal heart size. No pericardial or pleural effusion. Indeterminate approximately 2 cm hypoattenuati ng mass of the right hepatic lobe, of uncertain significance. No other hepatic or splenic, pancreatic , adrenal or renal space-occupying mass lesion is detected. The gallbladder is present. No bile duct or pancreatic duct dilatation. Approximately 4 mm lower pole nonobstructing left renal calculus. No ureteral calculus or hydroureteronephrosis. The urinary bladder is relatively evacuated, unremarka ble. Status post hysterectomy. Normal caliber of the abdominal aorta. No intraperitoneal or retroperitoneal or pelvic mass lesion or adenopathy or ascites is detected. Normal appendix. No bowel obstruction, bowel wall thickening, pneumatosis or intraperitoneal free air . Small fat-containing umbilical hernia. No suspicious osteolytic or osteoblastic lesions. Transitional first sacral vertebra. IMPRESSION: Patchy right lower lobe infiltrates well consider pneumonia, aspiration pneumonitis Indeterminate approximately centimeter right hepatic hypoattenuating lesion Approximately 4 mm nonobstructing lower pole left renal calculus Normal appendix No bowel obstruction, bowel wall thickening or free air Reviewed, dictated and finalized at Location A. Reviewed, dictated and finalized at location A. IMPRESSION: Patchy right lower lobe infiltrates well consider pneumonia, aspir ation pneumonitis Indeterminate approximately centimeter right hepatic hypoattenuating lesion Approximately 4 mm nonobstructing lower pole left renal calculus Normal appendix No bowel obstruction, bowel wall thickening or free air
[2021-05-31 19:41] LABS: Basophils Percent Auto 0.5 % (0.2-1.2); Eosinophils Percent Auto 0.2 % (0-4.4); Hematocrit 45.5 % (37.0-47.0); Hemoglobin 14.8 g/dL (12.0-15.0); Immature Granulocyte Absolute 0.01 K/mm3 (0.00-0.031); Immature Granulocyte Percent A 0.2 % (0-0.5); Lymphocytes Absolute Auto 1.44 K/mm3 (0.9-3.2); Lymphocytes Percent Auto 33.8 % (18.3-44.2); Mean Corpuscular HGB Conc 32.5 g/dl (32-36); Mean Corpuscular Hemoglobin 28.1 pg (26-34); Mean Corpuscular Volume 86.5 fl (80-100); Mean Platelet Volume 9.5 fl (7.4-10.4); Monocytes Absolute Auto 0.5 K/mm3 (0.1-0.6); Neutrophils Absolute Auto 2.3 K/mm3 (1.3-6.7); Neutrophils Percent Auto 54.3 % (45.5-73.1); Platelet Count Result 187 k/mm3 (150-375); Red Blood Count 5.26 M/mm3 (4.2-5.4); White Blood Count 4.3 K/mm3 (4.5-10.0)
[2021-05-31 19:43] LABS: Appearance Urine Clear (Clear); Bilirubin Urine Negative (Negative); Blood Urine Negative (Negative); Color Urine Yellow (Yellow); Glucose Urine UA Negative (Negative); Ketones Urine Negative (Negative); Leukocyte Esterase Ur Negative LEU/UL (Negative); Nitrate Urine Negative (Negative); Protein Urine Negative (Negative); Specific Grav Ur >= 1.030 (1.001-1.035); Urobilinogen Urine 0.2 mg/dL (<2.0); pH Urine 5.5 (5.0-9.0)
[2021-05-31 19:48] LABS: Mucus Urine Rare /lpf; RBC Urine 0-2 /hpf (0-2); Squamous Epithelial Cell Urine Few /hpf (Few); WBC Urine 0-3 /hpf
[2021-05-31 19:50] LABS: Add Urine Microscopic? NO
[2021-05-31 19:53] LABS: Alanine Aminotransferase 23 U/L (4-35); Albumin Level 4.5 g/dL (3.5-5.1); Alkaline Phosphatase 75 U/L (38-126); Anion Gap 8 mmol/L (8-16); Aspartate Amino Transferase 25 U/L (14-36); Bilirubin,Total 0.2 mg/dL (0.2-1.3); Blood Urea Nitrogen 17 mg/dL (7-17); Calcium 8.9 mg/dL (8.4-10.2); Carbon Dioxide 28 mmol/L (22-30); Chloride 101 mmol/L (98-107); Estimated CRCL calculation 118 ml/min; Estimated Glomerular Filt Rate > 60; Glucose 107 mg/dL (65-110); Lipase 57 U/L (23-300); Potassium 3.9 mmol/L (3.4-5.0); Sodium 137 mmol/L (137-145)
[2021-05-31 20:36] LABS: SARS-CoV-2 RNA PCR Negative
[2021-05-31] MEDS: KETOROLAC 30 MG/ML VIAL (*BKC) IV PUSH (21:27)
[2021-05-31] MEDS: ONDANSETRON INJ 4 MG/2 ML VIAL IV PUSH (21:27)
[2021-05-31] MEDS: SODIUM CHLORIDE 0.9% IV 1,000 ML 999 ML IV CONT (21:28)
--- NOTE | 2021-05-31 21:45 | ED.GENADULT ---
HPI - General Adult General Chief complaint: Abdominal Pain Stated complaint: N/V/D, abd pain, H/A x 3 days Time Seen by Provider: 05/31/21 19:17 Source: RN notes reviewed History of Present Illness HPI narrative: Patient presents emergency department from home for nausea vomiting diarrhea. Patient states that symptoms began approximately 3 days ago. She states that she has had intermittent frontal headaches, rhinorrhea, sore throat, cough this been nonproductive abdominal pain described as cramping with nausea vomiting and diarrhea. Patient states that she did take Tylenol at home with no relief she denies any measured fever or chills denies any chest pain or shortness of breath Related Data Home Medications Medication Instructions Recorded Confirmed clonazepam 0.5 mg tablet 0.5 mg PO QHS 05/15/21 05/15/21 fluoxetine 20 mg capsule 20 mg PO DAILY 05/15/21 05/15/21 lurasidone 80 mg tablet 80 mg PO QPM 05/15/21 05/15/21 propranolol 10 mg tablet 10 mg PO Q12H 05/15/21 05/15/21 topiramate 50 mg tablet 50 mg PO BID 05/15/21 05/15/21 trazodone 100 mg tablet 100 mg PO QHS PRN 05/15/21 05/15/21 Allergies Allergy/AdvReac Type Severity Reaction Status Date / Time iodine Allergy Severe Anaphylactic Verified 04/17/21 08:30 Shock shellfish derived Allergy Severe Anaphylactic Verified 04/17/21 08:30 Shock Sulfa (Sulfonamide Allergy Intermediate Rash Verified 04/17/21 08:30 Antibiotics) adhesive tape Allergy Mild Rash Verified 04/17/21 08:30 bacitracin Allergy Mild Rash Verified 04/17/21 08:30 benzalkonium chloride Allergy Mild Rash Verified 04/17/21 08:30 gramicidin D Allergy Mild Rash Verified 04/17/21 08:30 hydrocortisone Allergy Mild Rash Verified 04/17/21 08:30 neomycin Allergy Mild Rash Verified 04/17/21 08:30 polymyxin B Allergy Mild Rash Verified 04/17/21 08:30 simvastatin AdvReac Mild Rash Verified 04/17/21 08:30 SHELLFISH Allergy Severe Anaphylactic Uncoded 04/17/21 08:30 Shock BACITRACIN ZINC Allergy Mild Rash Uncoded 04/17/21 08:30 NEOMYCIN SULFATE Allergy Mild Rash Uncoded 04/17/21 08:30 POLYMYXIN B SULFATE Allergy Mild Rash Uncoded 04/17/21 08:30 Review of Systems Review of Systems: Gen.: Denies fevers or chills Eyes: Denies eye pain or visual change ENT: Reports congestion and sore throat Respiratory: Denies shortness of breath reports cough CV: Denies chest pain or palpitations GI: D see see HPI denies burning, urgency, frequency or hematuria Musculoskeletal: Denies back pain or muscle pain Neuro: Denies numbness, tingling, weakness or focal weakness Skin: Denies rash Except as documented, all other systems reviewed and negative [facility] Past Medical History Medical History Anxiety and depression GERD (gastroesophageal reflux disease) Hx of migraines Hyperlipidemia Mood disorder Prediabetes Seizures Surgical History Surgical History H/O adenoidectomy H/O: hysterectomy (~2019) History of tonsillectomy Ingrown toenail Previous section x2 Social History Social History Second hand tobacco smoke exposure: No Alcohol intake: never Substance use: never Substance use type: does not use Gender identity (if verbalized by the patient): Female Exam Narrative: APPEARANCE: No acute distress, nontoxic, resting in bed EYES: EOMI HEENT: Normocephalic, atraumatic, OMM RESPIRATORY: No respiratory distress Clear to auscultation bilaterally with no rhonchi wheezing or rales. CARDIOVASCULAR: Regular rate and rhythm without murmurs rubs or gallops. ABDOMINAL: Soft, nontender, nondistended, no rebound or guarding MUSCULOSKELETAl: Moves all extremities. No clubbing, cyanosis or edema. NEURO: Awake and alert. Following commands, speech normal, no focal deficits SKIN:: Warm, dry. No rashes lesions or abrasions PSYCHIATR
[2021-05-31] MEDS: DOXYCYCLINE HYCLATE 100 MG TABLET PO (22:01)
== END 2021-05-31 23:14 | disposition home or self-care (01) ==
PROVIDERS: Emergency Provider Emergency Medicine; PCP Family Medicine
DX: J18.9 Pneumonia, unspecified organism (principal); R11.2 Nausea with vomiting, unspecified; R19.7 Diarrhea, unspecified; Z20.822 Contact with and (suspected) exposure to COVID-19; K21.9 Gastro-esophageal reflux disease without esophagitis; E78.5 Hyperlipidemia, unspecified; R73.03 Prediabetes; F41.9 Anxiety disorder, unspecified; F32.A Depression, unspecified; F39 Unspecified mood [affective] disorder
CPT/HCPCS: 36415; 71045; 74176; 80053; 81003; 83690; 85025; 87804; 96361; 96374; 96375; 99284; A9270; C9803; J1885; J2405; J7030; U0003; U0005

== ENCOUNTER 2021-08-18 16:34 | Emergency (ER) | payer MEDICARE, SELFPAY ==
--- NOTE | ~2021-08-18 | XR_ITS ---
EXAMINATION: XR chest 2V Exam Date/Time: 08/18/2021 17:10 CDT HISTORY: CP radiates down left arm, light headed,sweating Comparison: 05/31/2021. RESULT: Lines, tubes, and devices: None. Lungs and pleura: Clear. Cardiomediastinal silhouette: Stable cardiomediastinal silhouette. Other: No acute osseous or upper abdominal finding. IMPRESSION: No acute cardiopulmonary process. Reviewed, dictated and finalized at location K.
[2021-08-18 16:39] VITALS: BP 139/67; PULSE 80; RESP 18; TEMP 36.1; O2SAT 98
--- NOTE | 2021-08-18 16:42 | ECG_ITS ---
Measurements Intervals Tropic Rate: 69 P: 26 AK: 127 QRS: 22 QRSD: 93 T: -5 QT: 387 QTc: 417 Interpretive Statements SINUS RHYTHM INCOMPLETE RIGHT BUNDLE BRANCH BLOCK BORDERLINE ST-T WAVE ABNORMALITY- INFERIOR LEADS BASELINE WANDER- I, III BORDERLINE ECG Electronically Signed On 08-18-2021 18:25:17 CDT by Esdras Alfredo D.O.
[2021-08-18 16:44] VITALS: PULSE 74
[2021-08-18 16:54] LABS: Basophils Percent Auto 0.5 % (0.2-1.2); Eosinophils Percent Auto 0.5 % (0-4.4); Hematocrit 39.4 % (37.0-47.0); Hemoglobin 13.1 g/dL (12.0-15.0); Immature Granulocyte Absolute 0.01 K/mm3 (0.00-0.031); Immature Granulocyte Percent A 0.1 % (0-0.5); Lymphocytes Absolute Auto 2.25 K/mm3 (0.9-3.2); Lymphocytes Percent Auto 27.4 % (18.3-44.2); Mean Corpuscular HGB Conc 33.2 g/dl (32-36); Mean Corpuscular Hemoglobin 28.1 pg (26-34); Mean Corpuscular Volume 84.5 fl (80-100); Mean Platelet Volume 9.6 fl (7.4-10.4); Monocytes Absolute Auto 0.4 K/mm3 (0.1-0.6); Monocytes Percent Auto 5.1 % (2.6-8.5); Neutrophils Absolute Auto 5.5 K/mm3 (1.3-6.7); Neutrophils Percent Auto 66.4 % (45.5-73.1); Platelet Count Result 223 k/mm3 (150-375); Red Blood Count 4.66 M/mm3 (4.2-5.4); Red Cell Distribution Width 12.9 % (11.5-14.5); White Blood Count 8.2 K/mm3 (4.5-10.0)
--- NOTE | 2021-08-18 16:56 | ED.CHESTPAIN ---
HPI - Chest Pain General Chief Complaint: Chest Pain Stated Complaint: CP Time Seen by Provider: 08/18/21 16:43 Source: patient History of Present Illness HPI narrative: Patient presents with chest pain. Ports she was driving home and developed left-sided chest pain that has achy shoots to her back and then down her left arm. There is no clear aggravating or alleviating factors. She reports mild association with shortness of breath she also feels lightheaded and dizzy particularly standing denies any nausea or vomiting. Sure she had intermittent chest pain yesterday but felt it was related to stress so she was not evaluated. She had a similar presentation many years ago and so she does has anxiety and was started on antianxiety medications. She attempted her anxiety medications today As well as aspirin and antacids without relief of her symptoms. She reports her biological parents have some heart disease but she is unsure of the details but I believe anyone has had any cardiac events in their 60s or younger. Denies any recent hospitalizations or surgeries she does take estrogen therapy and states she had a blood clot when she was . Denies any urinary symptoms Related Data Allergies Allergy/AdvReac Type Severity Reaction Status Date / Time iodine Allergy Severe Anaphylactic Verified 08/18/21 16:46 Shock shellfish derived Allergy Severe Anaphylactic Verified 08/18/21 16:46 Shock Sulfa (Sulfonamide Allergy Intermediate Rash Verified 08/18/21 16:46 Antibiotics) adhesive tape Allergy Mild Rash Verified 08/18/21 16:46 bacitracin Allergy Mild Rash Verified 08/18/21 16:46 benzalkonium chloride Allergy Mild Rash Verified 08/18/21 16:46 gramicidin D Allergy Mild Rash Verified 08/18/21 16:46 hydrocortisone Allergy Mild Rash Verified 08/18/21 16:46 neomycin Allergy Mild Rash Verified 08/18/21 16:46 polymyxin B Allergy Mild Rash Verified 08/18/21 16:46 simvastatin AdvReac Mild Rash Verified 08/18/21 16:46 SHELLFISH Allergy Severe Anaphylactic Uncoded 08/18/21 16:46 Shock BACITRACIN ZINC Allergy Mild Rash Uncoded 08/18/21 16:46 NEOMYCIN SULFATE Allergy Mild Rash Uncoded 08/18/21 16:46 POLYMYXIN B SULFATE Allergy Mild Rash Uncoded 08/18/21 16:46 Review of Systems Review of Systems: CONSTITUTIONAL: Denies fever, chills, or sweats. EYES: Denies visual changes, redness, or discharge. ENT: Denies rhinorrhea, congestion, sore throat, or otalgia. CARDIOVASCULAR: Denies palpitations, or edema. RESPIRATORY: Denies cough. GASTROINTESTINAL: Denies abdominal pain, nausea, vomiting, or diarrhea. GENITOURINARY: Denies dysuria or hematuria. SKIN: Denies rash or itching. MUSCULOSKELETAL: Denies back pain, joint pain, or myalgia. NEUROLOGIC: Denies headache, numbness, dizziness, or weakness. PSYCHIATRIC: Denies anxiety or depression. All systems reviewed & are unremarkable except as noted in HPI and below PMFSH Past Medical History Medical History Anxiety and depression GERD (gastroesophageal reflux disease) Hx of migraines Hyperlipidemia Mood disorder Prediabetes Seizures Surgical History Surgical History H/O adenoidectomy H/O: hysterectomy (~2020) History of tonsillectomy Ingrown toenail Previous section x2 Social History Social History Second hand tobacco smoke exposure: No Alcohol intake: never Substance use: never Substance use type: does not use Gender identity (if verbalized by the patient): Female Exam Narrative: GENERAL: Well-appearing, well-nourished, and in no acute distress. HEAD: Normocephalic, atraumatic. EYES: PERRLA and EOMI. ENT: Nares clear, no rhinorrhea or epistaxis. Mucous membranes moist. NECK: Supple. No masses. No JVD CHEST: Clear to auscultation. No respiratory distress. No wheezes rales or rhonchi
[2021-08-18] MEDS: KETOROLAC 15 MG/ML VIAL (*BKC) IV PUSH (17:03)
[2021-08-18 17:05] LABS: Alanine Aminotransferase 15 U/L (6-35); Alkaline Phosphatase 64 U/L (38-126); Anion Gap 5 mmol/L (8-16); Aspartate Amino Transferase 18 U/L (14-36); Bilirubin,Total 0.2 mg/dL (0.2-1.3); Blood Urea Nitrogen 10 mg/dL (7-17); Calcium 8.7 mg/dL (8.4-10.2); Carbon Dioxide 25 mmol/L (22-30); Chloride 108 mmol/L (98-107); Estimated CRCL calculation 104 ml/min; Estimated Glomerular Filt Rate > 60; Glucose 100 mg/dL (65-110); Lipase 51 U/L (23-300); Potassium 3.7 mmol/L (3.4-5.0); Sodium 138 mmol/L (137-145)
[2021-08-18 17:08] LABS: Prothrombin Time 12.7 Seconds (11.1-14.7)
[2021-08-18 17:09] LABS: Partial Thromboplastin Time 26.8 SECONDS (22.3-36.8)
[2021-08-18 17:16] LABS: Troponin I < 0.012 ng/mL (0.000-0.034)
[2021-08-18 18:48] VITALS: BP 133/74; PULSE 62; RESP 15; O2SAT 98
--- NOTE | 2021-08-18 19:10 | PC.NURSE ---
Assumed care of pt at this time. Pt alert and upright on stretcher. Pt updated on POC.
[2021-08-18 20:18] LABS: Troponin I < 0.012 ng/mL (0.000-0.034)
[2021-08-18 20:55] VITALS: BP 130/72; PULSE 66; RESP 16; O2SAT 100
== END 2021-08-18 20:56 | disposition home or self-care (01) ==
PROVIDERS: Emergency Provider Emergency Medicine; PCP Family Medicine
DX: R07.9 Chest pain, unspecified (principal); E78.5 Hyperlipidemia, unspecified
CPT/HCPCS: 36415; 71046; 80053; 83690; 84484; 85025; 85380; 85610; 85730; 93005; 96374; 99284; J1885

== ENCOUNTER 2021-11-06 00:20 | Emergency (ER) | payer MEDICARE, SELFPAY ==
[2021-11-06 00:30] VITALS: BP 137/76; PULSE 84; RESP 18; TEMP 36.6; O2SAT 100
[2021-11-06 04:12] VITALS: BP 128/78; PULSE 80; RESP 20; TEMP 37; O2SAT 99
--- NOTE | 2021-11-06 04:54 | ED.GENADULT ---
HPI - General Adult General Chief complaint: Ear Stated complaint: bilat ear pain Time Seen by Provider: 11/06/21 04:28 History of Present Illness HPI narrative: this is a 36-year-old female presenting to ED with chief complaint of ear pain, facial fullness and sore throat. Patient has been treated by her primary care physician for a URI. She just finished a course of azithromycin today. mother patient initially had nausea vomiting and diarrhea those symptoms have resolved. Patient denies any other physical complaints. Related Data Allergies Allergy/AdvReac Type Severity Reaction Status Date / Time iodine Allergy Severe Anaphylactic Verified 11/06/21 04:14 Shock shellfish derived Allergy Severe Anaphylactic Verified 11/06/21 04:14 Shock Sulfa (Sulfonamide Allergy Intermediate Rash Verified 11/06/21 04:14 Antibiotics) adhesive tape Allergy Mild Rash Verified 11/06/21 04:14 benzalkonium chloride Allergy Mild Rash Verified 11/06/21 04:14 gramicidin D Allergy Mild Rash Verified 11/06/21 04:14 hydrocortisone Allergy Mild Rash Verified 11/06/21 04:14 neomycin Allergy Mild Rash Verified 11/06/21 04:14 polymyxin B Allergy Mild Rash Verified 11/06/21 04:14 simvastatin AdvReac Mild Rash Verified 11/06/21 04:14 SHELLFISH Allergy Severe Anaphylactic Uncoded 11/06/21 04:14 Shock BACITRACIN ZINC Allergy Mild Rash Uncoded 11/06/21 04:14 NEOMYCIN SULFATE Allergy Mild Rash Uncoded 11/06/21 04:14 POLYMYXIN B SULFATE Allergy Mild Rash Uncoded 11/06/21 04:14 Review of Systems Review of Systems: CONSTITUTIONAL: Denies night sweats. EYES: No eye pain ENT: Denies rhinorrhea CARDIOVASCULAR: Denies palpitations RESPIRATORY: Denies hemoptysis GASTROINTESTINAL: Denies hematemesis GENITOURINARY: Denies hematuria. SKIN: Denies rash MUSCULOSKELETAL: Denies myalgia. NEUROLOGIC: Denies weakness. PSYCHIATRIC: Denies delusions PMFSH Past Medical History Medical History Anxiety Anxiety and depression GERD (gastroesophageal reflux disease) Hx of migraines Hyperlipidemia Mood disorder Prediabetes Seizures Surgical History Surgical History H/O adenoidectomy H/O: hysterectomy (~2019) History of tonsillectomy Ingrown toenail Previous section x2 Social History Social History Smoking status: Current some day smoker Second hand tobacco smoke exposure: No Alcohol intake: never Substance use: never Substance use type: does not use Gender identity (if verbalized by the patient): Female Spiritual care concerns: No Agree to blood products: Yes Exam Narrative: APPEARANCE: No apparent distress. Ear: patient has bilateral effusions without evidence of erythema or purulence behind the tympanic membrane. Throat: No erythema or exudates EYES: PERRLA/EOMI, NOSE: Normal no drainage NECK: Supple, Trachea midline RESPIRATORY: CTAB, No increased work of breathing. CARDIOVASCULAR: S1S2 appreciated ABDOMINAL: Soft, nontender, nondistended, MUSCULOSKELETAl: No obvious deformities NEURO: Alert. Moving 4/4 extremities SKIN:: Warm, dry. Normal color PSYCHIATRIC: Normal affect Course Vital Signs Vital signs: Vital Signs Temperature 98 F 11/06/21 00:30 Pulse Rate 84 11/06/21 00:30 Respiratory Rate 18 11/06/21 00:30 Blood Pressure 137/76 11/06/21 00:30 Pulse Oximetry 100 11/06/21 00:30 Oxygen Delivery Room Air 11/06/21 00:30 Temperature 98.6 F 11/06/21 04:12 Pulse Rate 80 11/06/21 04:12 Respiratory Rate 20 11/06/21 04:12 Blood Pressure 128/78 11/06/21 04:12 Pulse Oximetry 99 11/06/21 04:12 Oxygen Delivery Room Air 11/06/21 00:30 Medical Decision Making [facility] Narrative Medical decision making narrative: this is a 36-year-old female presenting to ED with sinus congestion. She just complete
[2021-11-06] MEDS: IBUPROFEN 400 MG TABLET 800 MG PO (05:27)
[2021-11-06] MEDS: ACETAMINOPHEN 500 MG TABLET 1000 MG PO (05:27)
== END 2021-11-06 05:49 | disposition home or self-care (01) ==
PROVIDERS: Emergency Provider Emergency Medicine; PCP Family Medicine
DX: R09.81 Nasal congestion (principal); J02.9 Acute pharyngitis, unspecified; F17.210 Nicotine dependence, cigarettes, uncomplicated; F41.9 Anxiety disorder, unspecified; F32.9 Major depressive disorder, single episode, unspecified; K21.9 Gastro-esophageal reflux disease without esophagitis
CPT/HCPCS: 96372; 99283; A9270; J1100

== ENCOUNTER 2021-11-19 09:50 | Emergency (ER) | payer MEDICARE, SELFPAY ==
[2021-11-19 09:59] VITALS: BP 120/68; PULSE 87; RESP 16; TEMP 37.7; O2SAT 99
--- NOTE | 2021-11-19 09:59 | ED.URI ---
HPI - URI/Sore Throat General Chief Complaint: Upper Respiratory Infection Stated Complaint: Coughing,Ear Irritation Time Seen by Provider: 11/19/21 09:59 Source: patient, RN notes reviewed and old records reviewed Mode of arrival: ambulatory Limitations: no limitations History of Present Illness HPI Narrative: 36-year-old female presents to the [facility] with complaints of a cough, scratchy throat, feeling of water in her ears. Reports the cough has been going on approximately 1 month. Has recently been on azithromycin and was seen in the ER and received a steroid shot. Patient was seen by her primary care provider who prescribed azithromycin on the of this October, seen in the ER on 06 November and received a steroid shot, states she still not getting any better. Denies fevers. No chest pain. No shortness of breath. Related Data Home Medications Medication Instructions Recorded Confirmed estradiol 1 mg tablet mg 11/19/21 ibuprofen 800 mg tablet mg 11/19/21 lamotrigine 25 mg tablet mg 11/19/21 Allergies Allergy/AdvReac Type Severity Reaction Status Date / Time iodine Allergy Severe Anaphylactic Verified 11/19/21 09:56 Shock shellfish derived Allergy Severe Anaphylactic Verified 11/19/21 09:56 Shock Sulfa (Sulfonamide Allergy Intermediate Rash Verified 11/19/21 09:56 Antibiotics) adhesive tape Allergy Mild Rash Verified 11/19/21 09:56 benzalkonium chloride Allergy Mild Rash Verified 11/19/21 09:56 gramicidin D Allergy Mild Rash Verified 11/19/21 09:56 hydrocortisone Allergy Mild Rash Verified 11/19/21 09:56 neomycin Allergy Mild Rash Verified 11/19/21 09:56 polymyxin B Allergy Mild Rash Verified 11/19/21 09:56 simvastatin AdvReac Mild Rash Verified 11/19/21 09:56 SHELLFISH Allergy Severe Anaphylactic Uncoded 11/06/21 04:14 Shock BACITRACIN ZINC Allergy Mild Rash Uncoded 11/06/21 04:14 NEOMYCIN SULFATE Allergy Mild Rash Uncoded 11/06/21 04:14 POLYMYXIN B SULFATE Allergy Mild Rash Uncoded 11/06/21 04:14 Review of Systems Review of Systems: All systems reviewed & are unremarkable except as noted in HPI and below Constitutional: Constitutional: Reports no additional constitutional complaints, Denies chills and Denies fever(s) Eyes: Eyes: Reports no additional eye complaints ENT: Reports as per HPI, Reports otalgia and Reports sore throat Cardiovascular: Cardiovascular: Reports no additional cardiovascular complaints Respiratory: Respiratory: Reports as per HPI and Reports cough Gastrointestinal: Gastrointestinal: Reports no additional gastrointestinal complaints Musculoskeletal: Musculoskeletal: Reports no additional musculoskeletal complaints Integumentary/Breasts: Skin/Breast: Reports system reviewed and no additional complaints, except as docu Neurologic: Reports system reviewed and no additional complaints, except as documented Psychiatric: Psychiatric: Reports no additional psychiatric complaints Allergic/Immunologic: Allergic/Immunologic: Reports no additional allergic/immunologic complaints PMFSH Past Medical History Medical History Anxiety Anxiety and depression GERD (gastroesophageal reflux disease) Hx of migraines Hyperlipidemia Mood disorder Prediabetes Seizures Surgical History Surgical History H/O adenoidectomy H/O: hysterectomy (~2019) History of tonsillectomy Ingrown toenail Previous section x2 Social History Social History Smoking status: Current some day smoker Second hand tobacco smoke exposure: No Alcohol intake: never Substance use: never Substance use type: does not use Gender identity (if verbalized by the patient): Female Spiritual care concerns: No Agree to blood products: Yes Comments At the time of my signature, I reviewed and agree with the marbella
== END 2021-11-19 10:13 | disposition home or self-care (01) ==
PROVIDERS: Emergency Provider Nurse Practitioner; PCP Family Medicine
DX: R09.82 Postnasal drip (principal); H65.03 Acute serous otitis media, bilateral; F17.200 Nicotine dependence, unspecified, uncomplicated; K21.9 Gastro-esophageal reflux disease without esophagitis; E78.5 Hyperlipidemia, unspecified; R73.03 Prediabetes
CPT/HCPCS: 99213; G0463

== ENCOUNTER 2021-12-18 08:07 | Emergency (ER) | payer MEDICARE, SELFPAY ==
--- NOTE | 2021-12-18 08:09 | ED.URI ---
HPI - URI/Sore Throat General Chief Complaint: Nausea/Vomiting/Diarrhea Stated Complaint: body aches/weakness/joint pain Time Seen by Provider: 12/18/21 08:09 Source: patient, RN notes reviewed and old records reviewed Mode of arrival: ambulatory Limitations: no limitations History of Present Illness HPI Narrative: 36-year-old female presents to the [facility] with complaints generalized body aches, feeling dehydrated, feeling faint, unable to eat or drink and vomiting for [address] herself to the [facility]. No treatment prior to arrival Patient states I need IV fluids. ? Onset (ago): day(s) (3) Able to tolerate fluids by mouth: No Treatments prior to arrival: none Related Data Home Medications Medication Instructions Recorded Confirmed estradiol 1 mg tablet 1 mg PO DAILY 11/19/21 12/18/21 lamotrigine 25 mg tablet 25 mg PO DAILY 11/19/21 12/18/21 Allergies Allergy/AdvReac Type Severity Reaction Status Date / Time iodine Allergy Severe Anaphylactic Verified 12/18/21 09:17 Shock shellfish derived Allergy Severe Anaphylactic Verified 12/18/21 09:17 Shock Sulfa (Sulfonamide Allergy Intermediate Rash Verified 12/18/21 09:17 Antibiotics) adhesive tape Allergy Mild Rash Verified 12/18/21 09:17 benzalkonium chloride Allergy Mild Rash Verified 12/18/21 09:17 gramicidin D Allergy Mild Rash Verified 12/18/21 09:17 hydrocortisone Allergy Mild Rash Verified 12/18/21 09:17 neomycin Allergy Mild Rash Verified 12/18/21 09:17 polymyxin B Allergy Mild Rash Verified 12/18/21 09:17 simvastatin AdvReac Mild Rash Verified 12/18/21 09:17 SHELLFISH Allergy Severe Anaphylactic Uncoded 12/18/21 08:24 Shock BACITRACIN ZINC Allergy Mild Rash Uncoded 12/18/21 08:24 NEOMYCIN SULFATE Allergy Mild Rash Uncoded 12/18/21 08:24 POLYMYXIN B SULFATE Allergy Mild Rash Uncoded 12/18/21 08:24 Review of Systems Review of Systems: All systems reviewed & are unremarkable except as noted in HPI and below Constitutional: Constitutional: Reports as per HPI, Reports body ache(s), Denies chills, Reports fatigue, Denies fever(s), Reports lethargy, Reports poor appetite and Reports weakness Eyes: Eyes: Reports no additional eye complaints ENT: Reports system reviewed and no additional complaints, except as documented Cardiovascular: Cardiovascular: Reports no additional cardiovascular complaints Respiratory: Respiratory: Reports no additional respiratory complaints Gastrointestinal: Gastrointestinal: Reports as per HPI, Reports nausea and Reports vomiting Genitourinary: Genitourinary: Reports no additional female genitourinary complaints Musculoskeletal: Musculoskeletal: Reports no additional musculoskeletal complaints Integumentary/Breasts: Skin/Breast: Reports system reviewed and no additional complaints, except as docu Neurologic: Reports system reviewed and no additional complaints, except as documented Psychiatric: Psychiatric: Reports no additional psychiatric complaints Allergic/Immunologic: Allergic/Immunologic: Reports no additional allergic/immunologic complaints PMFSH Past Medical History Medical History Anxiety Anxiety and depression GERD (gastroesophageal reflux disease) Hx of migraines Hyperlipidemia Mood disorder Prediabetes Seizures Surgical History Surgical History H/O adenoidectomy H/O: hysterectomy (~2020) History of tonsillectomy Ingrown toenail Previous section x2 Social History Social History Smoking status: Current some day smoker Second hand tobacco smoke exposure: No Alcohol intake: never Substance use: never Substance use type: does not use Gender identity (if verbalized by the patient): Female Spiritual care concerns: No Agree to blood products: Yes Comments At the time of my signature,
[2021-12-18 08:17] VITALS: BP 139/83; PULSE 72; RESP 16; TEMP 36.6; O2SAT 99
[2021-12-18 08:43] LABS: Glucose Point of Care 107 mg/dl (65-105)
== END 2021-12-18 08:44 | disposition short-term general hospital (02) ==
PROVIDERS: Emergency Provider Nurse Practitioner; PCP Family Medicine
DX: R53.1 Weakness (principal); Z20.822 Contact with and (suspected) exposure to COVID-19; F17.290 Nicotine dependence, other tobacco product, uncomplicated; K21.9 Gastro-esophageal reflux disease without esophagitis; E78.5 Hyperlipidemia, unspecified; R73.03 Prediabetes; G40.909 Epilepsy, unspecified, not intractable, without status epilepticus
CPT/HCPCS: 82948; 87426; 87804; 99215; C9803; G0463

== ENCOUNTER 2021-12-18 09:14 | Emergency (ER) | payer MEDICARE, SELFPAY ==
--- NOTE | 2021-12-18 09:13 | ED.NAVMDI ---
HPI - Nausea/Vomiting/Diarrhea General Chief complaint: Nausea/Vomiting/Diarrhea <JOSÉ MIGUEL Schmitz Last Filed: 12/18/21 15:06> Stated complaint: n/v/d and weakness <JOSÉ MIGUEL Schmitz Last Filed: 12/18/21 15:06> Source: patient <JOSÉ MIGUEL Schmitz Last Filed: 12/18/21 15:06> Mode of arrival: EMS <JOSÉ MIGUEL Schmitz Last Filed: 12/18/21 15:06> Limitations: no limitations <JOSÉ MIGUEL Schmitz Last Filed: 12/18/21 15:06> History of Present Illness HPI Narrative: Patient is a 36 y/o female who presents to the ED via EMS with for multiple complaints. Patient reports she developed nausea, vomiting, diarrhea 3 days ago. She has also had diffuse pain throughout her body, described as a charley horse pain. The vomiting and diarrhea have resolved, however patient still reports decreased appetite. Today at work she began feeling dizzy and lightheaded. She went to an urgent care and was referred here for further evaluation. Tested negative for COVID/flu at . Patient wanting IV fluids. Patient denies any nausea currently. Denies abdominal pain. Denies urinary symptoms. Denies fever. <JOSÉ MIGUEL Schmitz Last Filed: 12/18/21 15:06> Related Data Home medications: Home Medications Medication Instructions Recorded Confirmed estradiol 1 mg tablet 1 mg PO DAILY 11/19/21 12/18/21 lamotrigine 25 mg tablet 25 mg PO DAILY 11/19/21 12/18/21 <JOSÉ MIGUEL Schmitz Last Filed: 12/18/21 15:06> Allergies/Adverse reactions: Allergies Allergy/AdvReac Type Severity Reaction Status Date / Time iodine Allergy Severe Anaphylactic Verified 12/18/21 09:17 Shock shellfish derived Allergy Severe Anaphylactic Verified 12/18/21 09:17 Shock Sulfa (Sulfonamide Allergy Intermediate Rash Verified 12/18/21 09:17 Antibiotics) adhesive tape Allergy Mild Rash Verified 12/18/21 09:17 benzalkonium chloride Allergy Mild Rash Verified 12/18/21 09:17 gramicidin D Allergy Mild Rash Verified 12/18/21 09:17 hydrocortisone Allergy Mild Rash Verified 12/18/21 09:17 neomycin Allergy Mild Rash Verified 12/18/21 09:17 polymyxin B Allergy Mild Rash Verified 12/18/21 09:17 simvastatin AdvReac Mild Rash Verified 12/18/21 09:17 SHELLFISH Allergy Severe Anaphylactic Uncoded 12/18/21 08:24 Shock BACITRACIN ZINC Allergy Mild Rash Uncoded 12/18/21 08:24 NEOMYCIN SULFATE Allergy Mild Rash Uncoded 12/18/21 08:24 POLYMYXIN B SULFATE Allergy Mild Rash Uncoded 12/18/21 08:24 <Tammi Bledsoe PA-C - Last Filed: 12/18/21 15:06> Review of Systems Review of Systems: CONSTITUTIONAL: Reported decreased appetite. Denies fever, chills, or sweats. CARDIOVASCULAR: Denies chest pain. RESPIRATORY: Denies dyspnea. GASTROINTESTINAL: Reports N/V/D. Denies abdominal pain, rectal bleeding. GENITOURINARY: Denies dysuria or hematuria. MUSCULOSKELETAL: Reports diffuse muscle aches. NEUROLOGICAL: Reports dizziness, lightheadedness. <Tammi Bledsoe PA-C - Last Filed: 12/18/21 15:06> All systems reviewed & are unremarkable except as noted in HPI and below <Tammi Bledsoe PA-C - Last Filed: 12/18/21 15:06> [facility] Past Medical History Medical History: Medical History Anxiety Anxiety and depression GERD (gastroesophageal reflux disease) Hx of migraines Hyperlipidemia Mood disorder Prediabetes Seizures <Tammi Bledsoe PA-C - Last Filed: 12/18/21 15:06> Surgical History Surgical History: Surgical History H/O adenoidectomy H/O: hysterectomy (~2019) History of tonsillectomy Ingrown toenail Previous section x2 <Tammi Bledsoe PA-C - Last Filed: 12/18/21 15:06> Social History Social History: Social History Smoking status: Kelly
[2021-12-18 09:14] VITALS: BP 125/96; PULSE 76; RESP 16; TEMP 36.8; O2SAT 100
[2021-12-18] MEDS: SODIUM CHLORIDE 0.9% IV 1,000 ML 999 ML IV CONT (09:39)
[2021-12-18 09:40] LABS: Basophils Percent Auto 0.5 % (0.2-1.2); Eosinophils Percent Auto 0.3 % (0-4.4); Hematocrit 40.6 % (37.0-47.0); Hemoglobin 13.9 g/dL (12.0-15.0); Immature Granulocyte Absolute 0.01 K/mm3 (0.00-0.031); Immature Granulocyte Percent A 0.2 % (0-0.5); Lymphocytes Absolute Auto 2.84 K/mm3 (0.9-3.2); Lymphocytes Percent Auto 43.1 % (18.3-44.2); Mean Corpuscular HGB Conc 34.2 g/dl (32-36); Mean Corpuscular Hemoglobin 29.1 pg (26-34); Mean Corpuscular Volume 85.1 fl (80-100); Mean Platelet Volume 10.1 fl (7.4-10.4); Monocytes Absolute Auto 0.4 K/mm3 (0.1-0.6); Monocytes Percent Auto 5.6 % (2.6-8.5); Neutrophils Absolute Auto 3.3 K/mm3 (1.3-6.7); Neutrophils Percent Auto 50.3 % (45.5-73.1); Platelet Count Result 203 k/mm3 (150-375); Red Blood Count 4.77 M/mm3 (4.2-5.4); Red Cell Distribution Width 13.6 % (11.5-14.5); White Blood Count 6.6 K/mm3 (4.5-10.0)
[2021-12-18 09:51] LABS: Appearance Urine Clear (Clear); Bilirubin Urine 1+ (Negative); Blood Urine Negative (Negative); Color Urine Yellow (Yellow); Glucose Urine UA Negative (Negative); Ketones Urine 1+ mg/dL (Negative); Leukocyte Esterase Ur Negative LEU/UL (Negative); Nitrate Urine Negative (Negative); Protein Urine Negative (Negative); Specific Grav Ur 1.025 (1.001-1.035)
[2021-12-18 09:55] LABS: Alanine Aminotransferase 24 U/L (6-35); Albumin Level 4.4 g/dL (3.5-5.1); Alkaline Phosphatase 65 U/L (38-126); Anion Gap 13 mmol/L (8-16); Aspartate Amino Transferase 37 U/L (14-36); Bilirubin,Total 0.4 mg/dL (0.2-1.3); Blood Urea Nitrogen 8 mg/dL (7-17); Calcium 8.8 mg/dL (8.4-10.2); Carbon Dioxide 23 mmol/L (22-30); Chloride 104 mmol/L (98-107); Estimated CRCL calculation 117 ml/min; Estimated Glomerular Filt Rate > 60; Glucose 116 mg/dL (65-110); Lipase 38 U/L (23-300); Sodium 140 mmol/L (137-145)
[2021-12-18 10:11] LABS: Mucus Urine Heavy /lpf; RBC Urine 0-2 /hpf (0-2); Squamous Epithelial Cell Urine Many /hpf (Few)
[2021-12-18 10:14] LABS: Add Urine Microscopic? YES
[2021-12-18] MEDS: POTASSIUM CHLORIDE 20 MEQ TABLET 40 MEQ PO (10:19)
[2021-12-18 13:06] VITALS: BP 146/73; PULSE 75
[2021-12-18 13:07] VITALS: BP 142/79; BP 148/82; PULSE 89; PULSE 92
[2021-12-18 13:32] VITALS: BP 129/79; PULSE 71; RESP 18; O2SAT 100
== END 2021-12-18 13:37 | disposition home or self-care (01) ==
PROVIDERS: Physician Assistant; Emergency Provider Emergency Medicine; PCP Family Medicine
DX: E86.0 Dehydration (principal); E87.6 Hypokalemia; K21.9 Gastro-esophageal reflux disease without esophagitis; E78.5 Hyperlipidemia, unspecified; R73.03 Prediabetes; F41.9 Anxiety disorder, unspecified; F32.A Depression, unspecified; Z90.710 Acquired absence of both cervix and uterus; F17.200 Nicotine dependence, unspecified, uncomplicated
CPT/HCPCS: 36415; 80053; 81001; 81025; 82948; 83690; 83735; 85025; 87086; 87426; 87804; 96360; 96361; 99283; A9270; C9803; J7030

== ENCOUNTER 2022-01-30 10:57 | Emergency (ER) | payer MEDICARE, SELFPAY ==
[2022-01-30] VITALS (16 sets, daily range): BP systolic 121–129; BP diastolic 64–77; PULSE 69; RESP 14; TEMP 36.1; O2SAT 98–100
--- NOTE | ~2022-01-30 | CT_ITS ---
EXAMINATION: CT abdomen pelvis w con DATE: 01/30/2022 15:08 INDICATION: Nausea and vomiting. Abdominal pain. TECHNIQUE: Computed tomography (CT) of the abdomen and pelvis was performed with 100 mL Omnipaque 350 intravenous contrast. Automated exposure control and iterative reconstruction technique were employe d. The dose-length product was 1279.32 mGy-cm. COMPARISON: CT abdomen and pelvis 05/31/2021 FINDINGS: The visualized portions of the lung bases demonstrate mild atelectasis. No pleural effusion . The heart size is normal. No pericardial effusion. There is a 2.1 cm hyperenhancing mass in right h epatic lobe. The gallbladder, spleen, pancreas, adrenal glands, and right kidney are normal. There is a 3 mm stone in left kidney. There are no dilated loops of bowel. The appendix is normal. There is a small umbilical hernia containing fat. There are no pathologically enlarged lymph nodes. There is no free intraperitoneal fluid. There is mild thoracolumbar spondylosis. IMPRESSION: 1. Stable 2.1 cm hyperenhancing mass in right hepatic lobe, likely a hemangioma or focal nodular hype rplasia. 2. Small umbilical hernia containing fat. Reviewed, dictated and finalized at location A. ETIC MANAGER IMPRESSION: 1. Stable 2.1 cm hyperenhancing mass in right hepatic lobe, likely a hemangioma or focal nodular hyperplasia. 2. Small umbilical hernia containing fat.
--- NOTE | 2022-01-30 11:58 | ECG_ITS ---
Measurements Intervals [place] Rate: 66 P: 49 [place]: 140 QRS: 43 QRSD: 90 T: 8 QT: 404 QTc: 425 Interpretive Statements SINUS RHYTHM INCOMPLETE RIGHT BUNDLE BRANCH BLOCK NONSPECIFIC ST AND T WAVE ABNORMALITY COMPARED TO ECG 08/18/2021 16:48:41 NO SIGNIFICANT CHANGES Electronically Signed On 01-30-2022 13:25:29 SENIOR ACCOUNT EXECUTIVE by Angelina Rizvi M.D.
[2022-01-30 12:24] LABS: Basophils Percent Auto 0.5 % (0.2-1.2); Eosinophils Percent Auto 0.5 % (0-4.4); Hematocrit 43.5 % (37.0-47.0); Hemoglobin 14.6 g/dL (12.0-15.0); Immature Granulocyte Absolute 0.01 K/mm3 (0.00-0.031); Immature Granulocyte Percent A 0.2 % (0-0.5); Lymphocytes Absolute Auto 1.72 K/mm3 (0.9-3.2); Lymphocytes Percent Auto 30.2 % (18.3-44.2); Mean Corpuscular HGB Conc 33.6 g/dl (32-36); Mean Corpuscular Hemoglobin 29.4 pg (26-34); Mean Corpuscular Volume 87.5 fl (80-100); Mean Platelet Volume 10.1 fl (7.4-10.4); Monocytes Absolute Auto 0.3 K/mm3 (0.1-0.6); Monocytes Percent Auto 4.9 % (2.6-8.5); Neutrophils Absolute Auto 3.6 K/mm3 (1.3-6.7); Neutrophils Percent Auto 63.7 % (45.5-73.1); Platelet Count Result 192 k/mm3 (150-375); Red Blood Count 4.97 M/mm3 (4.2-5.4); Red Cell Distribution Width 12.3 % (11.5-14.5); White Blood Count 5.7 K/mm3 (4.5-10.0)
[2022-01-30 12:36] LABS: Alanine Aminotransferase 19 U/L (6-35); Albumin Level 4.4 g/dL (3.5-5.1); Alkaline Phosphatase 58 U/L (38-126); Anion Gap 6 mmol/L (8-16); Aspartate Amino Transferase 20 U/L (14-36); Bilirubin,Total 0.5 mg/dL (0.2-1.3); Blood Urea Nitrogen 9 mg/dL (7-17); Carbon Dioxide 23 mmol/L (22-30); Chloride 111 mmol/L (98-107); Estimated CRCL calculation 113 ml/min; Estimated Glomerular Filt Rate > 60; Glucose 105 mg/dL (65-110); Lipase 31 U/L (23-300); Potassium 3.9 mmol/L (3.4-5.0); Sodium 140 mmol/L (137-145)
[2022-01-30 12:39] LABS: Add Urine Microscopic? NO; Appearance Urine Clear (Clear); Bilirubin Urine Negative (Negative); Blood Urine Negative (Negative); Color Urine Light Yellow (Yellow); Glucose Urine UA Negative (Negative); Ketones Urine Negative (Negative); Leukocyte Esterase Ur Negative LEU/UL (Negative); Nitrate Urine Negative (Negative); Protein Urine Negative (Negative); Urobilinogen Urine 0.2 mg/dL (<2.0); pH Urine 6.5 (5.0-9.0)
--- NOTE | 2022-01-30 13:55 | ED.NAVMDI ---
HPI - Nausea/Vomiting/Diarrhea General Chief complaint: Nausea/Vomiting/Diarrhea Stated complaint: vomiting Time Seen by Provider: 01/30/22 13:01 History of Present Illness HPI Narrative: 36-year-old female presents to the emergency room for evaluation of nausea and vomiting, abdominal discomfort and headache for 3 days. Patient states she has been taking Tylenol with no resolution of her symptoms. States had multiple episodes of nonbloody nonbilious vomiting, and states she is throwing up . Extensive abdominal surgical history. Reports that diffuse abdominal pain is described as a cramping sensation that does not radiate. Denies any hematuria or difficulty urinating. Denies diarrhea or constipation. Denies fevers. Related Data Home Medications Medication Instructions Recorded Confirmed estradiol 1 mg tablet 1 mg PO DAILY 11/19/21 12/18/21 lamotrigine 25 mg tablet 25 mg PO DAILY 11/19/21 12/18/21 Allergies Allergy/AdvReac Type Severity Reaction Status Date / Time iodine Allergy Severe Anaphylactic Verified 12/18/21 09:17 Shock shellfish derived Allergy Severe Anaphylactic Verified 12/18/21 09:17 Shock Sulfa (Sulfonamide Allergy Intermediate Rash Verified 12/18/21 09:17 Antibiotics) adhesive tape Allergy Mild Rash Verified 12/18/21 09:17 benzalkonium chloride Allergy Mild Rash Verified 12/18/21 09:17 gramicidin D Allergy Mild Rash Verified 12/18/21 09:17 hydrocortisone Allergy Mild Rash Verified 12/18/21 09:17 neomycin Allergy Mild Rash Verified 12/18/21 09:17 polymyxin B Allergy Mild Rash Verified 12/18/21 09:17 simvastatin AdvReac Mild Rash Verified 12/18/21 09:17 SHELLFISH Allergy Severe Anaphylactic Uncoded 12/18/21 08:24 Shock BACITRACIN ZINC Allergy Mild Rash Uncoded 12/18/21 08:24 NEOMYCIN SULFATE Allergy Mild Rash Uncoded 12/18/21 08:24 POLYMYXIN B SULFATE Allergy Mild Rash Uncoded 12/18/21 08:24 Review of Systems Review of Systems: CONSTITUTIONAL: Denies fever, chills, or sweats. EYES: Denies visual changes, redness, or discharge. ENT: Denies rhinorrhea, congestion, sore throat, or otalgia. CARDIOVASCULAR: Denies chest pain, palpitations, or edema. RESPIRATORY: Denies cough or dyspnea. GASTROINTESTINAL: Reports abdominal pain, nausea, vomiting GENITOURINARY: Denies dysuria or hematuria. SKIN: Denies rash or itching. MUSCULOSKELETAL: Denies back pain, joint pain, or myalgia. NEUROLOGIC: Denies headache, numbness, dizziness, or weakness. PSYCHIATRIC: Denies anxiety or depression. [facility] Past Medical History Medical History Anxiety Anxiety and depression GERD (gastroesophageal reflux disease) Hx of migraines Hyperlipidemia Mood disorder Prediabetes Seizures Surgical History Surgical History H/O adenoidectomy H/O: hysterectomy (~2019) History of tonsillectomy Ingrown toenail Previous section x2 Social History Social History Smoking status: Current some day smoker Second hand tobacco smoke exposure: No Alcohol intake: never Substance use: never Substance use type: does not use Gender identity (if verbalized by the patient): Female Spiritual care concerns: No Agree to blood products: Yes Exam Narrative: GENERAL: Well-appearing, well-nourished, no physical limitations, and in no acute distress. HEAD: Normocephalic, atraumatic. EYES: Conjunctivae normal, PERRLA and EOMI. CHEST: Clear to auscultation. No respiratory distress. No wheezes rales or rhonchi. HEART: Regular rate and rhythm. No murmur heard. Normal peripheral pulses. ABDOMEN: Soft, nontender, morbidly obese nondistended, normal active bowel sounds. BACK: No CVA tenderness EXTREMITIES: Normal range of motion. No edema. No clubbing or cyanosis SKIN: Warm, dry, no rash. No noted wounds NEURO: No focal deficits. Alert and orie
[2022-01-30] MEDS: DICYCLOMINE HCL INJ 20 MG/2 ML VIAL IM (14:04)
[2022-01-30] MEDS: PANTOPRAZOLE SODIUM IV 40 MG VIAL IV PUSH (14:04)
[2022-01-30] MEDS: ONDANSETRON INJ 4 MG/2 ML VIAL IV PUSH (14:04)
[2022-01-30] MEDS: SODIUM CHLORIDE 0.9% IV 1,000 ML 999 ML IV CONT ×2 (14:04→15:22)
== END 2022-01-30 16:40 | disposition home or self-care (01) ==
PROVIDERS: Emergency Medicine; Emergency Provider Nurse Practitioner Family; PCP Family Medicine
DX: R10.9 Unspecified abdominal pain (principal); R11.2 Nausea with vomiting, unspecified; F17.210 Nicotine dependence, cigarettes, uncomplicated; F41.9 Anxiety disorder, unspecified; F32.9 Major depressive disorder, single episode, unspecified; K21.9 Gastro-esophageal reflux disease without esophagitis; G40.909 Epilepsy, unspecified, not intractable, without status epilepticus
CPT/HCPCS: 36415; 74177; 80053; 81003; 81025; 83690; 85025; 93005; 96361; 96372; 96374; 96375; 99284; C9113; J0500; J2405; J7030; Q9967

== ENCOUNTER 2022-03-20 11:22 | Emergency (ER) | payer MEDICARE, SELFPAY ==
[2022-03-20 11:35] VITALS: BP 112/73; PULSE 83; RESP 15; TEMP 36.2; O2SAT 99
--- NOTE | 2022-03-20 11:38 | ECG_ITS ---
Measurements Intervals [place] Rate: 81 P: 68 [place]: 133 QRS: 51 QRSD: 89 T: -1 QT: 361 QTc: 420 Interpretive Statements SINUS RHYTHM COMPARED TO ECG 01/30/2022 12:15:16 NO SIGNIFICANT CHANGES Electronically Signed On 03-20-2022 15:03:28 OPHTHALMIC TECH by Angelina Rizvi M.D.
[2022-03-20 11:52] LABS: Basophils Percent Auto 0.5 % (0.2-1.2); Eosinophils Absolute Auto 0.1 K/mm3 (0-0.3); Eosinophils Percent Auto 1.4 % (0-4.4); Hematocrit 47.8 % (37.0-47.0); Hemoglobin 16.1 g/dL (12.0-15.0); Immature Granulocyte Absolute 0.01 K/mm3 (0.00-0.031); Immature Granulocyte Percent A 0.2 % (0-0.5); Lymphocytes Absolute Auto 0.89 K/mm3 (0.9-3.2); Lymphocytes Percent Auto 15.7 % (18.3-44.2); Mean Corpuscular HGB Conc 33.7 g/dl (32-36); Mean Corpuscular Hemoglobin 29.4 pg (26-34); Mean Corpuscular Volume 87.2 fl (80-100); Mean Platelet Volume 9.4 fl (7.4-10.4); Monocytes Absolute Auto 0.3 K/mm3 (0.1-0.6); Monocytes Percent Auto 4.9 % (2.6-8.5); Neutrophils Absolute Auto 4.4 K/mm3 (1.3-6.7); Neutrophils Percent Auto 77.3 % (45.5-73.1); Platelet Count Result 194 k/mm3 (150-375); Red Blood Count 5.48 M/mm3 (4.2-5.4); Red Cell Distribution Width 11.9 % (11.5-14.5); White Blood Count 5.7 K/mm3 (4.5-10.0)
[2022-03-20 12:05] LABS: Alanine Aminotransferase 28 U/L (6-35); Albumin Level 4.4 g/dL (3.5-5.1); Alkaline Phosphatase 67 U/L (38-126); Anion Gap 3 mmol/L (8-16); Aspartate Amino Transferase 28 U/L (14-36); Bilirubin,Total 0.5 mg/dL (0.2-1.3); Blood Urea Nitrogen 18 mg/dL (7-17); Calcium 9.1 mg/dL (8.4-10.2); Carbon Dioxide 29 mmol/L (22-30); Chloride 101 mmol/L (98-107); Estimated CRCL calculation 101 ml/min; Estimated Glomerular Filt Rate > 60; Glucose 111 mg/dL (65-110); Potassium 4.2 mmol/L (3.4-5.0); Sodium 133 mmol/L (137-145)
[2022-03-20 14:00] VITALS: BP 113/78; PULSE 75; RESP 17; O2SAT 99
--- NOTE | 2022-03-20 15:15 | ED.GENADULT ---
HPI - General Adult General Chief complaint: Dizziness Stated complaint: dizziness, kidney pain Time Seen by Provider: 03/20/22 14:32 History of Present Illness HPI narrative: This is a 36-year-old female presenting ED with dizziness. The patient states that over the last 2 weeks she has been having multiple episodes of nausea vomiting diarrhea per day. His attempted Imodium with no relief. He has also had headache and intermittent fevers. She denies chest pain, shortness breath, abdominal pain urinary symptoms. She has had some back pain which she says is around her kidneys. Patient was started on lithium yesterday but has not had any change in her symptoms since starting that. She denies tremors. Related Data Home Medications Medication Instructions Recorded Confirmed estradiol 1 mg tablet 1 mg PO DAILY 11/19/21 12/18/21 lamotrigine 25 mg tablet 25 mg PO DAILY 11/19/21 12/18/21 Allergies Allergy/AdvReac Type Severity Reaction Status Date / Time iodine Allergy Severe Anaphylactic Verified 03/20/22 14:01 Shock shellfish derived Allergy Severe Anaphylactic Verified 03/20/22 14:01 Shock Sulfa (Sulfonamide Allergy Intermediate Rash Verified 03/20/22 14:01 Antibiotics) adhesive tape Allergy Mild Rash Verified 03/20/22 14:01 benzalkonium chloride Allergy Mild Rash Verified 03/20/22 14:01 gramicidin D Allergy Mild Rash Verified 03/20/22 14:01 hydrocortisone Allergy Mild Rash Verified 03/20/22 14:01 neomycin Allergy Mild Rash Verified 03/20/22 14:01 polymyxin B Allergy Mild Rash Verified 03/20/22 14:01 simvastatin AdvReac Mild Rash Verified 03/20/22 14:01 SHELLFISH Allergy Severe Anaphylactic Uncoded 03/20/22 14:01 Shock BACITRACIN ZINC Allergy Mild Rash Uncoded 03/20/22 14:01 NEOMYCIN SULFATE Allergy Mild Rash Uncoded 03/20/22 14:01 POLYMYXIN B SULFATE Allergy Mild Rash Uncoded 03/20/22 14:01 Review of Systems Review of Systems: All systems reviewed & are unremarkable except as noted in HPI and below PMFSH Past Medical History Medical History Anxiety Anxiety and depression GERD (gastroesophageal reflux disease) Hx of migraines Hyperlipidemia Mood disorder Prediabetes Seizures Surgical History Surgical History H/O adenoidectomy H/O: hysterectomy (~2019) History of tonsillectomy Ingrown toenail Previous section x2 Social History Social History Smoking status: Current some day smoker Second hand tobacco smoke exposure: No Alcohol intake: never Substance use: never Substance use type: does not use Living arrangements: with family Gender identity (if verbalized by the patient): Female Spiritual care concerns: No Agree to blood products: Yes Exam Narrative: APPEARANCE: No apparent distress. Head: atraumatic. EYES: EOMI, NOSE: Atraumatic NECK: Trachea midline RESPIRATORY: No increased rate of breathing Clear to auscultation CARDIOVASCULAR: RRR, no periphe edema ABDOMINAL: Non-distendral no guarding or rebound MUSCULOSKELETAl: No obvious deformities NEURO: Alert. Moving 4/4 extremities, no tremors SKIN:: Warm, dry. Normal color PSYCHIATRIC: Normal affect Course Vital Signs Vital signs: Vital Signs Temperature 97.1 F L 03/20/22 11:35 Pulse Rate 83 03/20/22 11:35 Respiratory Rate 15 03/20/22 11:35 Blood Pressure 112/73 03/20/22 11:35 Pulse Oximetry 99 03/20/22 11:35 Temperature 97.1 F L 03/20/22 11:35 Pulse Rate 60 03/20/22 17:57 Respiratory Rate 15 03/20/22 17:57 Blood Pressure 120/59 L 03/20/22 17:57 Pulse Oximetry 100 03/20/22 17:57 Medical Decision Making [facility] Narrative Medical decision making narrative: -Presentation: this is a 36-year-old female presenting with lightheadedness. Patient has had nausea vomiting diarrhea for 2 week
[2022-03-20] MEDS: ONDANSETRON INJ 4 MG/2 ML VIAL IV PUSH (15:39)
[2022-03-20] MEDS: IBUPROFEN 400 MG TABLET 800 MG PO (15:39)
[2022-03-20] MEDS: ACETAMINOPHEN 500 MG TABLET 1000 MG PO (15:40)
[2022-03-20] MEDS: SODIUM CHLORIDE 0.9% IV 2,000 ML 999 ML IV CONT (15:42)
[2022-03-20 16:17] LABS: Influenza A QL RT-PCR Negative (Negative); Influenza B QL RT-PCR Negative (Negative); RSV RNA, RT-PCR Negative (Negative); SARS-CoV-2 RNA PCR Negative
[2022-03-20 16:49] LABS: Appearance Urine Slightly Cloudy (Clear); Bilirubin Urine Negative (Negative); Blood Urine Negative (Negative); Color Urine Yellow (Yellow); Glucose Urine UA Negative (Negative); Ketones Urine Negative (Negative); Leukocyte Esterase Ur Negative LEU/UL (Negative); Nitrate Urine Negative (Negative); Protein Urine 1+ mg/dL (Negative)
[2022-03-20 16:53] LABS: Bacteria Urine Trace /hpf; Mucus Urine Heavy /lpf; Squamous Epithelial Cell Urine Many /hpf (Few)
[2022-03-20 16:54] LABS: Add Urine Microscopic? YES
[2022-03-20 17:57] VITALS: BP 120/59; PULSE 60; RESP 15; O2SAT 100
[2022-03-20 18:18] LABS: Lithium < 0.2 mmol/L (0.6-1.2)
[2022-03-20 19:21] VITALS: BP 97/47; PULSE 80; RESP 21; O2SAT 99
== END 2022-03-20 19:38 | disposition home or self-care (01) ==
PROVIDERS: Emergency Medicine; Emergency Provider Emergency Medicine; PCP Family Medicine
DX: E86.0 Dehydration (principal); R11.2 Nausea with vomiting, unspecified; R19.7 Diarrhea, unspecified; Z20.822 Contact with and (suspected) exposure to COVID-19; F41.9 Anxiety disorder, unspecified; F32.9 Major depressive disorder, single episode, unspecified; K21.9 Gastro-esophageal reflux disease without esophagitis; R50.9 Fever, unspecified
CPT/HCPCS: 36415; 80053; 80178; 81001; 85025; 87086; 87637; 93005; 96361; 96374; 99284; A9270; J2405; J7030

== ENCOUNTER 2023-01-13 13:26 | Emergency (ER) | payer MEDICARE, SELFPAY ==
--- NOTE | ~2023-01-13 | XR_ITS ---
Clinical Indication: Chest pain PA and lateral views of the chest: Comparison: 08/18/2021 Findings: The lungs are clear, without evidence of focal consolidation or pleural effusion. Cardiome diastinal silhouette is within normal limits. Bones and soft tissues are unremarkable. Impression: Normal chest. Reviewed, dictated and finalized at location . [employer] Impression: Normal chest.
--- NOTE | 2023-01-13 13:28 | ECG_ITS ---
Measurements Intervals [place] Rate: 70 P: 44 [place]: 122 QRS: 51 QRSD: 95 T: -7 QT: 380 QTc: 411 Interpretive Statements SINUS RHYTHM INCOMPLETE RIGHT BUNDLE BRANCH BLOCK NONSPECIFIC ST & T-WAVE ABNORMALITY- ANTEROLAT/INF LEADS BASELINE ARTIFACT- I, III, AVR, AVL BORDERLINE ECG COMPARED TO ECG 03/20/2022 11:42:13 ST-T WAVE ABNORMALITY NOW PRESENT Electronically Signed On 01-13-2023 13:39:53 V BLOCK SAW OPERATOR by Esdras Alfredo D.O.
[2023-01-13 13:32] VITALS: BP 143/85; PULSE 71; RESP 18; TEMP 36.9; O2SAT 100
[2023-01-13 13:47] LABS: Basophils Percent Auto 0.4 % (0.2-1.2); Eosinophils Percent Auto 0.4 % (0-4.4); Hemoglobin 14.4 g/dL (12.0-15.0); Immature Granulocyte Absolute 0.02 K/mm3 (0.00-0.031); Immature Granulocyte Percent A 0.4 % (0-0.5); Lymphocytes Absolute Auto 1.42 K/mm3 (0.9-3.2); Lymphocytes Percent Auto 30.9 % (18.3-44.2); Mean Corpuscular HGB Conc 32.7 g/dl (32-36); Mean Corpuscular Hemoglobin 28.9 pg (26-34); Mean Corpuscular Volume 88.4 fl (80-100); Mean Platelet Volume 9.5 fl (7.4-10.4); Monocytes Absolute Auto 0.2 K/mm3 (0.1-0.6); Monocytes Percent Auto 4.6 % (2.6-8.5); Neutrophils Absolute Auto 2.9 K/mm3 (1.3-6.7); Neutrophils Percent Auto 63.3 % (45.5-73.1); Platelet Count Result 190 k/mm3 (150-375); Red Blood Count 4.98 M/mm3 (4.2-5.4); Red Cell Distribution Width 11.8 % (11.5-14.5); White Blood Count 4.6 K/mm3 (4.5-10.0)
[2023-01-13 13:58] LABS: Partial Thromboplastin Time 27.3 SECONDS (22.3-36.8); Prothrombin Time 13.4 Seconds (11.1-14.7)
[2023-01-13 13:59] LABS: Alanine Aminotransferase 17 U/L (6-35); Albumin Level 4.3 g/dL (3.5-5.1); Alkaline Phosphatase 56 U/L (38-126); Anion Gap 11 mmol/L (8-16); Aspartate Amino Transferase 23 U/L (14-36); Bilirubin,Total 0.6 mg/dL (0.2-1.3); Blood Urea Nitrogen 12 mg/dL (7-17); Calcium 9.3 mg/dL (8.4-10.2); Carbon Dioxide 24 mmol/L (22-30); Chloride 103 mmol/L (98-107); Estimated CRCL calculation 128 ml/min; Estimated Glomerular Filt Rate > 60; Glucose 172 mg/dL (65-110); Lipase 42 U/L (23-300); Potassium 3.4 mmol/L (3.4-5.0); Sodium 138 mmol/L (137-145)
[2023-01-13 14:09] LABS: Troponin I < 0.012 ng/mL (0.000-0.034)
--- NOTE | 2023-01-13 16:01 | ED.GENADULT ---
HPI - General Adult General Chief complaint: Chest Pain Stated complaint: CP Time Seen by Provider: 01/13/23 16:00 Source: patient Mode of arrival: ambulatory Limitations: no limitations History of Present Illness HPI narrative: This is a 37-year-old female who presents to the ED with chief complaint of chest pain being 1.5 hours prior to arrival. Patient reports that she was just lying down texting people on her phone pain began. Reports pain is all across the entire chest and occasionally radiates into the arm. She also reports pain across the entire upper back. Denies pleuritic pain. Denies any exacerbation with exertion. She has no heart history. She does endorse family history of [place]. reports some tingling to the hands. Endorses nausea but no vomiting. Denies syncope. Denies cough, shortness of breath, palpitations, leg swelling. States she was on estradiol in the past but has been off this for over 6 months. Denies any recent travel or hospitalization or other immobilization. Denies any history of blood clot. Related Data Home Medications Medication Instructions Recorded Confirmed estradiol 1 mg tablet 1 mg PO DAILY 11/19/21 12/18/21 lamotrigine 25 mg tablet 25 mg PO DAILY 11/19/21 12/18/21 Allergies Allergy/AdvReac Type Severity Reaction Status Date / Time iodine Allergy Severe Anaphylactic Verified 03/20/22 14:01 Shock shellfish derived Allergy Severe Anaphylactic Verified 03/20/22 14:01 Shock Sulfa (Sulfonamide Allergy Intermediate Rash Verified 03/20/22 14:01 Antibiotics) adhesive tape Allergy Mild Rash Verified 03/20/22 14:01 benzalkonium chloride Allergy Mild Rash Verified 03/20/22 14:01 gramicidin D Allergy Mild Rash Verified 03/20/22 14:01 hydrocortisone Allergy Mild Rash Verified 03/20/22 14:01 neomycin Allergy Mild Rash Verified 03/20/22 14:01 polymyxin B Allergy Mild Rash Verified 03/20/22 14:01 simvastatin AdvReac Mild Rash Verified 03/20/22 14:01 SHELLFISH Allergy Severe Anaphylactic Uncoded 03/20/22 14:01 Shock BACITRACIN ZINC Allergy Mild Rash Uncoded 03/20/22 14:01 NEOMYCIN SULFATE Allergy Mild Rash Uncoded 03/20/22 14:01 POLYMYXIN B SULFATE Allergy Mild Rash Uncoded 03/20/22 14:01 Review of Systems Review of Systems: All systems as dictated in [facility] Past Medical History Medical History Anxiety Anxiety and depression GERD (gastroesophageal reflux disease) Hx of migraines Hyperlipidemia Mood disorder Prediabetes Seizures Surgical History Surgical History H/O adenoidectomy H/O: hysterectomy (~2019) History of tonsillectomy Ingrown toenail Previous section x2 Social History Social History Smoking status: Current some day smoker Second hand tobacco smoke exposure: No Alcohol intake: never Substance use: never Substance use type: does not use Living arrangements: with family Gender identity (if verbalized by the patient): Female Spiritual care concerns: No Agree to blood products: Yes Exam Narrative: GENERAL: Well-appearing, well-nourished, and in no acute distress. HEAD: Normocephalic, atraumatic. EYES: PERRLA and EOMI. ENT: Nares clear, no rhinorrhea or epistaxis. Mucous membranes moist. Oropharynx without tonsillar hypertrophy exudate or other lesions. NECK: Supple. No adenopathy or masses. CHEST: No respiratory distress. Clear to auscultation. No wheezes rales or rhonchi HEART: Regular rate and rhythm. No murmur heard. Normal peripheral pulses. ABDOMEN: Soft, nontender, nondistended, normal active bowel sounds. MSK: Normal range of motion. No edema. SKIN: Warm, dry, no rash. NEURO: Alert and oriented x3. No focal deficits. PSYCH: Normal mood and affect. Course Vital Signs Vital signs: Vital Signs Temperature 98.5 F 01/13/23
[2023-01-13 16:11] VITALS: BP 142/77; PULSE 67; RESP 18; O2SAT 100
[2023-01-13 16:41] LABS: Troponin I < 0.012 ng/mL (0.000-0.034)
== END 2023-01-13 17:22 | disposition home or self-care (01) ==
PROVIDERS: Emergency Provider Emergency Medicine; PCP Family Medicine
DX: R07.89 Other chest pain (principal); E78.5 Hyperlipidemia, unspecified; R73.03 Prediabetes; K21.9 Gastro-esophageal reflux disease without esophagitis; F17.200 Nicotine dependence, unspecified, uncomplicated; F41.9 Anxiety disorder, unspecified; F39 Unspecified mood [affective] disorder; F32.A Depression, unspecified; I45.10 Unspecified right bundle-branch block; R94.31 Abnormal electrocardiogram [ECG] [EKG]
CPT/HCPCS: 36415; 71046; 80053; 83690; 84484; 85025; 85610; 85730; 93005; 99284

== ENCOUNTER 2023-04-10 08:04 | Emergency (ER) | payer MEDICARE, SELFPAY ==
--- NOTE | 2023-04-10 08:05 | ED.URI ---
HPI - URI/Sore Throat General Chief Complaint: Upper Respiratory Infection Stated Complaint: Sinus Time Seen by Provider: 04/10/23 08:05 Source: patient Mode of arrival: ambulatory Limitations: no limitations History of Present Illness HPI Narrative: Sharona is a 37-year-old female patient presenting to the clinic today with complaints of runny nose, cough, congestion, nausea, dizziness, and body aches x6 days. She reports no known fever or chills. Reports that she is blowing out green nasal drainage. Just restarted her prazosin and hydroxyzine 1 week ago. MD elicited complaint: sore throat and nasal congestion Related Data Home Medications Medication Instructions Recorded Confirmed estradiol 1 mg tablet 1 mg PO DAILY 11/19/21 04/10/23 lamotrigine 25 mg tablet 25 mg PO DAILY 11/19/21 04/10/23 fluoxetine 20 mg capsule 20 mg PO DAILY 04/10/23 04/10/23 hydroxyzine HCl 10 mg tablet 10 mg PO DIRECTED 04/10/23 04/10/23 Allergies Allergy/AdvReac Type Severity Reaction Status Date / Time iodine Allergy Severe Anaphylactic Verified 04/10/23 08:11 Shock shellfish derived Allergy Severe Anaphylactic Verified 04/10/23 08:11 Shock Sulfa (Sulfonamide Allergy Intermediate Rash Verified 04/10/23 08:11 Antibiotics) adhesive tape Allergy Mild Rash Verified 04/10/23 08:11 benzalkonium chloride Allergy Mild Rash Verified 04/10/23 08:11 gramicidin D Allergy Mild Rash Verified 04/10/23 08:11 hydrocortisone Allergy Mild Rash Verified 04/10/23 08:11 neomycin Allergy Mild Rash Verified 04/10/23 08:11 polymyxin B Allergy Mild Rash Verified 04/10/23 08:11 simvastatin AdvReac Mild Rash Verified 04/10/23 08:11 SHELLFISH Allergy Severe Anaphylactic Uncoded 04/10/23 08:11 Shock BACITRACIN ZINC Allergy Mild Rash Uncoded 04/10/23 08:11 NEOMYCIN SULFATE Allergy Mild Rash Uncoded 04/10/23 08:11 POLYMYXIN B SULFATE Allergy Mild Rash Uncoded 04/10/23 08:11 Review of Systems Review of Systems: Pertinent positives per HPI. Patient denies any fever, chills, rash, headache, visual changes, dizziness, sore throat, shortness of breath, chest pain, palpitations, nausea, vomiting, diarrhea, constipation, abdominal pain, or any urinary issues. [facility] Past Medical History Medical History Anxiety Anxiety and depression GERD (gastroesophageal reflux disease) Hx of migraines Hyperlipidemia Mood disorder Prediabetes Seizures Surgical History Surgical History H/O adenoidectomy H/O: hysterectomy (~2020) History of tonsillectomy Ingrown toenail Previous section x2 Social History Social History Smoking status: Current some day smoker Second hand tobacco smoke exposure: No Alcohol intake: never Substance use: never Substance use type: does not use Living arrangements: with family Gender identity (if verbalized by the patient): Female Spiritual care concerns: No Agree to blood products: Yes Comments At the time of my signature, I reviewed and agree with the nursing past medical, surgical, social, and family history. There is no relevant family history pertinent to the patient complaint. Exam Narrative: General: Well-developed, well nourished, in no apparent distress Head: Normocephalic, atraumatic Eyes: Pupils equally round and reactive to light bilaterally, EOM intact, sclera and conjunctive clear, no discharge, lids normal Ears: TMs intact and congested, ear canals clear, no drainage, grossly hearing normal. Nose: Nares patent, clear nasal discharge, no inflammation, no sinus tenderness. Mouth: Oral pharynx without lesions or masses, good dentition, MMM. Neck: Supple, trachea midline, no enlargement of anterior or posterior cervical nodes, no thyroid masses or goiter palpable. Cardio: Regular rate and rhythm, s1 and s
[2023-04-10 08:15] VITALS: BP 115/82; PULSE 89; RESP 18; TEMP 36.3; O2SAT 100
== END 2023-04-10 08:40 | disposition home or self-care (01) ==
PROVIDERS: Emergency Provider Nurse Practitioner Family; PCP Family Medicine
DX: J06.9 Acute upper respiratory infection, unspecified (principal); B97.89 Other viral agents as the cause of diseases classified elsewhere; E78.5 Hyperlipidemia, unspecified; F41.9 Anxiety disorder, unspecified; F32.A Depression, unspecified; F17.200 Nicotine dependence, unspecified, uncomplicated; Z79.899 Other long term (current) drug therapy
CPT/HCPCS: 87804; 99213; G0463

== ENCOUNTER 2023-04-14 15:16 | Emergency (ER) | payer MEDICARE, SELFPAY ==
--- NOTE | ~2023-04-14 | US_ITS ---
EXAMINATION: US venous doppler UE RT DATE: 04/14/2023 19:00 INDICATION: pain to forearm/elbow, no injury . TECHNIQUE: Grayscale ultrasound images without and with compression and Doppler ultrasound images of the right upper extremity veins were obtained. COMPARISON: None. FINDINGS: The visualized portions of the right internal jugular vein, subclavian vein, axillary vein, brachial veins, basilic vein, cephalic vein, radial vein, and ulnar vein are patent. IMPRESSION: No deep venous thrombosis. Reviewed, dictated and finalized at location [facility]. 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
--- NOTE | ~2023-04-14 | XR_ITS ---
EXAM: XR elbow RT min 3V, XR forearm RT 2V DATE: 04/14/2023 18:31 HISTORY: pain to foreram/elbow, no injury X 3-4 DAYS . COMPARISON: None available. FINDINGS: Normal mineralization. No fracture or dislocation. No lytic or blastic lesion. Joint space s are maintained. No erosion or periosteal change. Round soft tissue nodule measuring up to 11 mm med ial to the elbow, with a small fatty hilum. Mild subcutaneous stranding posterior proximal forearm. N o subcutaneous emphysema. IMPRESSION: Lymphadenopathy medial to the elbow. Subcutaneous inflammation/edema of the posterior and proximal fo rearm. Correlate for clinical findings of infection. No acute osseous finding in the right elbow or right forearm. Reviewed, dictated and finalized at location [facility]. N [employer] IMPRESSION: Lymphadenopathy medial to the elbow. Subcutaneous inflammation/edema of the pos terior and proximal forearm. Correlate for clinical findings of infection. No acute osseous finding in the right elbow or right forearm.
[2023-04-14 15:43] VITALS: BP 145/70; PULSE 76; RESP 16; TEMP 36.6; O2SAT 99
--- NOTE | 2023-04-14 18:17 | ED.GENADULT ---
HPI - General Adult General Chief complaint: Skin/Abscess/Foreign Body <Tammi Bledsoe PA-C - Last Filed: 04/14/23 18:28> Stated complaint: RUE extremity swelleing and redness <JOSÉ MIGUEL Schmitz Last Filed: 04/14/23 18:28> Time Seen by Provider: 04/14/23 18:17 <JOSÉ MIGUEL Schmitz Last Filed: 04/14/23 18:28> Focused HPI: Patient is a 37-year-old female who presents the ED with report of right upper extremity pain. Patient reports having a constant sharp pain in her right forearm and right elbow since Friday. She states the pain radiates into her dorsal hand in into her 4th digit. She denies any known injury, no recent heavy lifting. No significant pain with movement of the arm. She does state her arm feels slightly swollen. No previous hx of DVT. She has tried taking Tylenol but denies improvement of pain. Denies numbness/tingling, wounds. Does report recent breakout of her ezcema to her hands bilaterally from soap she used at work. GENERAL: Well-appearing, obese with BMI 39.6, and in no acute distress. HEAD: Normocephalic, atraumatic. CHEST: Clear to auscultation. ?No respiratory distress. HEART: Regular rate and rhythm.? Radial pulses 2+ bilaterally MSK: No significant pain with range of motion of right wrist or elbow. Tenderness to palpation over medial epicondyle of the elbow extending into medial ventral forearm. No tenderness over biceps tendon. Minimal swelling to forearm noted. Sensation intact. Capillary refill intact to fingers. SKIN: Eczematous changes to flexor aspect of fingers bilaterally. No streaking erythema, no drainage. NEURO: ?Alert and oriented x3. Patient screened in triage and initial orders placed.? ?Additional care and disposition to be based upon?diagnostic testing and treatment. <JOSÉ MIGUEL Schmitz Last Filed: 04/14/23 18:28> Source: patient <JOSÉ MIGUEL Schmitz Last Filed: 04/14/23 18:28> Mode of arrival: ambulatory <JOSÉ MIGUEL Schmitz Last Filed: 04/14/23 18:28> Limitations: no limitations <Tammi Bledsoe PA-C - Last Filed: 04/14/23 18:28> Related Data Home medications: Home Medications Medication Instructions Recorded Confirmed estradiol 1 mg tablet 1 mg PO DAILY 11/19/21 04/10/23 lamotrigine 25 mg tablet 25 mg PO DAILY 11/19/21 04/10/23 fluoxetine 20 mg capsule 20 mg PO DAILY 04/10/23 04/10/23 hydroxyzine HCl 10 mg tablet 10 mg PO DIRECTED 04/10/23 04/10/23 <Tammi Bledsoe PA-C - Last Filed: 04/14/23 18:28> Allergies/adverse reactions: Allergies Allergy/AdvReac Type Severity Reaction Status Date / Time iodine Allergy Severe Anaphylactic Verified 04/10/23 08:11 Shock shellfish derived Allergy Severe Anaphylactic Verified 04/10/23 08:11 Shock Sulfa (Sulfonamide Allergy Intermediate Rash Verified 04/10/23 08:11 Antibiotics) adhesive tape Allergy Mild Rash Verified 04/10/23 08:11 benzalkonium chloride Allergy Mild Rash Verified 04/10/23 08:11 gramicidin D Allergy Mild Rash Verified 04/10/23 08:11 hydrocortisone Allergy Mild Rash Verified 04/10/23 08:11 neomycin Allergy Mild Rash Verified 04/10/23 08:11 polymyxin B Allergy Mild Rash Verified 04/10/23 08:11 simvastatin AdvReac Mild Rash Verified 04/10/23 08:11 SHELLFISH Allergy Severe Anaphylactic Uncoded 04/10/23 08:11 Shock BACITRACIN ZINC Allergy Mild Rash Uncoded 04/10/23 08:11 NEOMYCIN SULFATE Allergy Mild Rash Uncoded 04/10/23 08:11 POLYMYXIN B SULFATE Allergy Mild Rash Uncoded 04/10/23 08:11 <Tammi Bledsoe PA-C - Last Filed: 04/14/23 18:28> Review of Systems Review of Systems: All systems reviewed & are unremarkable except as noted in HPI and below <Lisa Alfonso MD - Last Filed: 04/14/23 20:14> PMFSH Past Medical History Medical History: Medical History Anxiety Anxiety and depression GERD (gastroesophage
[2023-04-14] MEDS: ACETAMINOPHEN 500 MG TABLET 1000 MG PO (18:31)
[2023-04-14 18:35] VITALS: BP 139/87; PULSE 74; RESP 18; O2SAT 100
[2023-04-14] MEDS: CEPHALEXIN 500 MG CAPSULE PO (20:23)
[2023-04-14] MEDS: DOXYCYCLINE HYCLATE 100 MG TABLET PO (20:23)
[2023-04-14 20:28] VITALS: BP 138/82; PULSE 68; RESP 15; O2SAT 100
== END 2023-04-14 20:29 | disposition home or self-care (01) ==
PROVIDERS: Emergency Provider Emergency Medicine; PCP Family Medicine
DX: L03.113 Cellulitis of right upper limb (principal); E78.5 Hyperlipidemia, unspecified; R73.03 Prediabetes; K21.9 Gastro-esophageal reflux disease without esophagitis; F39 Unspecified mood [affective] disorder; F41.9 Anxiety disorder, unspecified; F32.A Depression, unspecified; Z90.710 Acquired absence of both cervix and uterus; F17.200 Nicotine dependence, unspecified, uncomplicated
CPT/HCPCS: 73080; 73090; 93971; 99284; A9270

== ENCOUNTER 2023-05-18 16:19 | Emergency (ER) | payer MEDICARE, SELFPAY ==
--- NOTE | 2023-05-18 16:28 | ED.SKABFB ---
HPI - Skin/Abscess/Foreign Bdy General Chief complaint: Skin/Abscess/Foreign Body Stated complaint: Rash Both Hands/Left Ear Time Seen by Provider: 05/18/23 16:37 Source: patient and RN notes reviewed Mode of arrival: ambulatory Limitations: no limitations History of Present Illness HPI narrative: 37-year-old female presents with concern for painful blistering rash to bilateral hands of behind her ear. Reports she has dealt with this for some time, she was on an antibiotic for it 2 months ago that improved it but it did not go away. Reports she has been using steroid cream without relief. Reports it has been draining yellow drainage today. MD complaint: rash Related Data Home Medications Medication Instructions Recorded Confirmed fluoxetine 20 mg capsule 20 mg PO DAILY 04/10/23 05/18/23 hydroxyzine HCl 10 mg tablet 10 mg PO DIRECTED 04/10/23 05/18/23 Allergies Allergy/AdvReac Type Severity Reaction Status Date / Time iodine Allergy Severe Anaphylactic Verified 05/18/23 16:34 Shock shellfish derived Allergy Severe Anaphylactic Verified 05/18/23 16:34 Shock Sulfa (Sulfonamide Allergy Intermediate Rash Verified 05/18/23 16:34 Antibiotics) adhesive tape Allergy Mild Rash Verified 05/18/23 16:34 benzalkonium chloride Allergy Mild Rash Verified 05/18/23 16:34 gramicidin D Allergy Mild Rash Verified 05/18/23 16:34 hydrocortisone Allergy Mild Rash Verified 05/18/23 16:34 neomycin Allergy Mild Rash Verified 05/18/23 16:34 polymyxin B Allergy Mild Rash Verified 05/18/23 16:34 simvastatin AdvReac Mild Rash Verified 05/18/23 16:34 SHELLFISH Allergy Severe Anaphylactic Uncoded 05/18/23 16:34 Shock BACITRACIN ZINC Allergy Mild Rash Uncoded 05/18/23 16:34 NEOMYCIN SULFATE Allergy Mild Rash Uncoded 05/18/23 16:34 POLYMYXIN B SULFATE Allergy Mild Rash Uncoded 05/18/23 16:34 Review of Systems Review of Systems: CONSTITUTIONAL: Denies malaise, chills, sweats, or fever. EYES: Denies redness, or discharge. ENT: Denies rhinorrhea, congestion, swollen lips, swollen tongue CARDIOVASCULAR: Denies chest pain, palpitations, or edema. RESPIRATORY: Denies cough or dyspnea. GASTROINTESTINAL: Denies abdominal pain, nausea, vomiting SKIN: Reports painful draining to bilateral hands of behind her left ear MUSCULOSKELETAL: Denies joint pain or myalgia. NEUROLOGIC: Denies headache. All systems reviewed & are unremarkable except as noted in HPI and below PMFSH Past Medical History Medical History Anxiety Anxiety and depression GERD (gastroesophageal reflux disease) Hx of migraines Hyperlipidemia Mood disorder Prediabetes Seizures Surgical History Surgical History H/O adenoidectomy H/O: hysterectomy (~2019) History of tonsillectomy Ingrown toenail Previous section x2 Social History Social History Smoking status: Current some day smoker Second hand tobacco smoke exposure: No Alcohol intake: never Substance use: never Substance use type: does not use Living arrangements: with family Gender identity (if verbalized by the patient): Female Spiritual care concerns: No Agree to blood products: Yes Comments At time of signature, agree with nursing past medical, surgical, social and family history. There is no relevant family history pertinent to the presenting complaint Exam Narrative: GENERAL: Well-appearing, well-nourished, and in no acute distress. HEAD: Normocephalic, atraumatic. EYES: PERRLA, conjunctivae clear, and EOMI. ENT: Mucous membranes moist. Oropharynx without edema, erythema or lesions. NECK: Supple. No lymphadenopathy CHEST: Clear to auscultation. No respiratory distress. HEART: Regular rate and rhythm. SKIN: Warm, dry. Excoriated crusty rash noted to bilateral hands on the palmar aspect at t
[2023-05-18 16:35] VITALS: BP 123/88; PULSE 98; RESP 16; TEMP 36.7; O2SAT 100
[2023-05-18 16:43] VITALS: BP 123/88; PULSE 98; RESP 16; TEMP 36.7; O2SAT 100
== END 2023-05-18 16:40 | disposition home or self-care (01) ==
PROVIDERS: Emergency Provider Nurse Practitioner; PCP Family Medicine
DX: L30.9 Dermatitis, unspecified (principal); L08.9 Local infection of the skin and subcutaneous tissue, unspecified; B95.61 Methicillin susceptible Staphylococcus aureus infection as the cause of diseases classified elsewhere; F41.9 Anxiety disorder, unspecified; F32.A Depression, unspecified; K21.9 Gastro-esophageal reflux disease without esophagitis; E78.5 Hyperlipidemia, unspecified; R73.03 Prediabetes; F17.200 Nicotine dependence, unspecified, uncomplicated
CPT/HCPCS: 87070; 87075; 87181; 87205; 99213; G0463

== ENCOUNTER 2023-06-20 08:03 | Emergency (ER) | payer MEDICARE, SELFPAY ==
[2023-06-20 08:18] VITALS: BP 128/81; PULSE 79; RESP 16; TEMP 36.7; O2SAT 100
--- NOTE | 2023-06-20 08:39 | ED.URI ---
HPI - URI/Sore Throat General Chief Complaint: Upper Respiratory Infection Stated Complaint: metal taste ,BELTRAN,cough,throwing up Time Seen by Provider: 06/20/23 08:25 Source: patient and RN notes reviewed Mode of arrival: ambulatory Limitations: no limitations History of Present Illness HPI Narrative: Patient presents today with a 5 day history of nausea with occasional vomiting, headache, sneezing, occasional cough. Reports fever at onset of symptoms of 100.3, but this only lasted for few days. She has been trying Tylenol Excedrin for headache. She has been able to keep down some crackers and Sprite, but nothing else. Reports that her nausea is worsened with movement of her head, which causes some significant dizziness. Related Data Home Medications Medication Instructions Recorded Confirmed fluoxetine 20 mg capsule 20 mg PO DAILY 04/10/23 06/20/23 hydroxyzine HCl 10 mg tablet 10 mg PO DIRECTED 04/10/23 06/20/23 Allergies Allergy/AdvReac Type Severity Reaction Status Date / Time iodine Allergy Severe Anaphylactic Verified 06/20/23 08:15 Shock shellfish derived Allergy Severe Anaphylactic Verified 06/20/23 08:15 Shock Sulfa (Sulfonamide Allergy Intermediate Rash Verified 06/20/23 08:15 Antibiotics) adhesive tape Allergy Mild Rash Verified 06/20/23 08:15 benzalkonium chloride Allergy Mild Rash Verified 06/20/23 08:15 gramicidin D Allergy Mild Rash Verified 06/20/23 08:15 hydrocortisone Allergy Mild Rash Verified 06/20/23 08:15 neomycin Allergy Mild Rash Verified 06/20/23 08:15 polymyxin B Allergy Mild Rash Verified 06/20/23 08:15 simvastatin AdvReac Mild Rash Verified 06/20/23 08:15 SHELLFISH Allergy Severe Anaphylactic Uncoded 06/20/23 08:15 Shock BACITRACIN ZINC Allergy Mild Rash Uncoded 06/20/23 08:15 NEOMYCIN SULFATE Allergy Mild Rash Uncoded 06/20/23 08:15 POLYMYXIN B SULFATE Allergy Mild Rash Uncoded 06/20/23 08:15 Review of Systems Review of Systems: CONSTITUTIONAL: Denies body aches, chills, or sweats.+ fever EYES: Denies visual changes, redness, or discharge. ENT: Denies rhinorrhea, congestion, sore throat, or otalgia.+ CARDIOVASCULAR: Denies chest pain, palpitations, or edema. RESPIRATORY: Denies dyspnea.+ cough GASTROINTESTINAL: Denies abdominal pain, or diarrhea.+ nausea, vomiting GENITOURINARY: Denies dysuria or hematuria. SKIN: Denies rash, itching, or wounds. MUSCULOSKELETAL: Denies back pain, joint pain, or myalgia. NEUROLOGIC: Denies numbness, tingling, or weakness.+ headache, dizziness PSYCH: Denies depression or anxiety. PMFSH Past Medical History Medical History Anxiety Anxiety and depression GERD (gastroesophageal reflux disease) Hx of migraines Hyperlipidemia Mood disorder Prediabetes Seizures Surgical History Surgical History H/O adenoidectomy H/O: hysterectomy (~2019) History of tonsillectomy Ingrown toenail Previous section x2 Social History Social History Smoking status: Current some day smoker Second hand tobacco smoke exposure: No Alcohol intake: never Substance use: never Substance use type: does not use Living arrangements: with family Gender identity (if verbalized by the patient): Female Spiritual care concerns: No Agree to blood products: Yes Comments At time of signature, I have reviewed and agree with nursing past medical, surgical, social and family history unless otherwise noted. Please see nursing chart for further information. There is no relevant family history pertinent to the presenting complaint Exam Narrative: GENERAL: Mildly ill-appearing, well-nourished, and in no acute distress. HEAD: Normocephalic, atraumatic. EYES: EOMI. No redness or drainage. Conjunctivae normal. No nystagmus ENT: Mucous membranes pink a
== END 2023-06-20 08:49 | disposition home or self-care (01) ==
PROVIDERS: Emergency Provider Nurse Practitioner; PCP Family Medicine
DX: B34.9 Viral infection, unspecified (principal); R42 Dizziness and giddiness; F17.200 Nicotine dependence, unspecified, uncomplicated; F41.9 Anxiety disorder, unspecified; F32.A Depression, unspecified; K21.9 Gastro-esophageal reflux disease without esophagitis; E78.5 Hyperlipidemia, unspecified; R73.03 Prediabetes
CPT/HCPCS: 99213; G0463

== ENCOUNTER 2023-10-11 15:14 | Emergency (ER) | payer MEDICARE, SELFPAY ==
[2023-10-11 15:24] VITALS: BP 133/90; PULSE 123; RESP 16; TEMP 36.2; O2SAT 100
--- NOTE | 2023-10-11 15:47 | ED.URI ---
HPI - URI/Sore Throat General Chief Complaint: Upper Respiratory Infection Stated Complaint: Sore Throat Time Seen by Provider: 10/11/23 15:47 Source: patient, RN notes reviewed and old records reviewed Mode of arrival: ambulatory Limitations: no limitations History of Present Illness HPI Narrative: Patient presents with complaints of lingering cough and hoarseness after recovering from COVID-19. She reports that she tested positive for COVID a couple of weeks ago, has had lingering cough since that time. Has tried [id number] cough medication, hot tea with honey. She is requesting to be tested for strep throat, despite being told that worsen as is typically not associated with strep. She does report that her throat hurts. She voices no other concerns or complaints at this time. No fever, chills, sweats Related Data Home Medications Medication Instructions Recorded Confirmed fluoxetine 20 mg capsule 20 mg PO DAILY 04/10/23 06/20/23 hydroxyzine HCl 10 mg tablet 10 mg PO DIRECTED 04/10/23 06/20/23 Allergies Allergy/AdvReac Type Severity Reaction Status Date / Time iodine Allergy Severe Anaphylactic Verified 06/20/23 08:15 Shock shellfish derived Allergy Severe Anaphylactic Verified 06/20/23 08:15 Shock Sulfa (Sulfonamide Allergy Intermediate Rash Verified 06/20/23 08:15 Antibiotics) adhesive tape Allergy Mild Rash Verified 06/20/23 08:15 benzalkonium chloride Allergy Mild Rash Verified 06/20/23 08:15 gramicidin D Allergy Mild Rash Verified 06/20/23 08:15 hydrocortisone Allergy Mild Rash Verified 06/20/23 08:15 neomycin Allergy Mild Rash Verified 06/20/23 08:15 polymyxin B Allergy Mild Rash Verified 06/20/23 08:15 simvastatin AdvReac Mild Rash Verified 06/20/23 08:15 SHELLFISH Allergy Severe Anaphylactic Uncoded 06/20/23 08:15 Shock BACITRACIN ZINC Allergy Mild Rash Uncoded 06/20/23 08:15 NEOMYCIN SULFATE Allergy Mild Rash Uncoded 06/20/23 08:15 POLYMYXIN B SULFATE Allergy Mild Rash Uncoded 06/20/23 08:15 Review of Systems Review of Systems: All systems reviewed & are unremarkable except as noted in HPI and below Constitutional: Constitutional: Reports as per HPI and Reports no additional constitutional complaints ENT: Reports system reviewed and no additional complaints, except as documented, Reports as per HPI, Reports hoarseness and Reports sore throat Cardiovascular: Cardiovascular: Reports no additional cardiovascular complaints Respiratory: Respiratory: Reports no additional respiratory complaints Gastrointestinal: Gastrointestinal: Reports no additional gastrointestinal complaints PMFSH Past Medical History Medical History Anxiety Anxiety and depression GERD (gastroesophageal reflux disease) Hx of migraines Hyperlipidemia Mood disorder Prediabetes Seizures Surgical History Surgical History H/O adenoidectomy H/O: hysterectomy (~2019) History of tonsillectomy Ingrown toenail Previous section x2 Social History Social History Smoking status: Current some day smoker Second hand tobacco smoke exposure: No Alcohol intake: never Substance use: never Substance use type: does not use Living arrangements: with family Gender identity (if verbalized by the patient): Female Spiritual care concerns: No Agree to blood products: Yes Exam Const: General: cooperative, no acute distress, alert and awake Orientation/consciousness: oriented to person, oriented to place and oriented to time HENMT: Head: normal to inspection Mouth: Yes moist mucous membranes Throat: posterior oropharynx abnormal erythema Resp: Effort & Inspection: normal respiratory effort and able to speak in complete sentences Auscultation: clear to auscultation bilaterally, no crackles, no rales, no rhonchi and no w
[2023-10-11 15:50] LABS: EDSTREPNEGPOS1 Negative
== END 2023-10-11 16:01 | disposition home or self-care (01) ==
PROVIDERS: Emergency Provider Nurse Practitioner Family; PCP Family Medicine
DX: J04.0 Acute laryngitis (principal); F17.200 Nicotine dependence, unspecified, uncomplicated; K21.9 Gastro-esophageal reflux disease without esophagitis; E78.5 Hyperlipidemia, unspecified; R73.03 Prediabetes; F41.9 Anxiety disorder, unspecified; F32.A Depression, unspecified
CPT/HCPCS: 87081; 87880; 99213; G0463

== ENCOUNTER 2023-11-15 13:44 | Emergency (ER) | payer MEDICARE, SELFPAY ==
--- NOTE | ~2023-11-15 | CT_ITS ---
CT brain wo con Ordering provider: Kobe Tidwell MD History: 38 years Female with . dizziness . Comparison: October 02, 2005 Technique: CT of the head without contrast. Radiation reduction technique utilized. The dose-length product was 605.33 mGy-cm. FINDINGS: BRAIN PARENCHYMA AND CSF SPACES: No midline shift, mass effect or hemorrhage. The brain parenchyma a nd CSF spaces are otherwise normal. VISUALIZED PARANASAL SINUSES: Right maxillary sinus disease. MASTOIDS: Well aerated. BONES: The bones appear intact. SOFT TISSUES: Visualized nasopharynx is normal. Superficial soft tissues are normal. IMPRESSION: No acute intracranial findings. Reviewed, dictated and finalized at location A.
[2023-11-15 14:13] VITALS: BP 146/96; PULSE 64; RESP 16; TEMP 36.9; O2SAT 100
[2023-11-15 17:45] VITALS: BP 118/67; PULSE 64; RESP 16; O2SAT 100
[2023-11-15 17:55] LABS: Basophils Percent Auto 0.5 % (0.2-1.2); Eosinophils Absolute Auto 0.1 K/mm3 (0-0.3); Eosinophils Percent Auto 0.7 % (0-4.4); Hematocrit 43.5 % (37.0-47.0); Hemoglobin 15.2 g/dL (12.0-15.0); Immature Granulocyte Absolute 0.01 K/mm3 (0.00-0.031); Immature Granulocyte Percent A 0.1 % (0-0.5); Lymphocytes Absolute Auto 2.61 K/mm3 (0.9-3.2); Lymphocytes Percent Auto 34.8 % (18.3-44.2); Mean Corpuscular HGB Conc 34.9 g/dl (32-36); Mean Corpuscular Hemoglobin 29.5 pg (26-34); Mean Corpuscular Volume 84.5 fl (80-100); Mean Platelet Volume 9.6 fl (7.4-10.4); Monocytes Absolute Auto 0.5 K/mm3 (0.1-0.6); Neutrophils Absolute Auto 4.4 K/mm3 (1.3-6.7); Neutrophils Percent Auto 57.9 % (45.5-73.1); Platelet Count Result 263 k/mm3 (150-375); Red Blood Count 5.15 M/mm3 (4.2-5.4); Red Cell Distribution Width 12.3 % (11.5-14.5); White Blood Count 7.5 K/mm3 (4.5-10.0)
[2023-11-15 17:59] LABS: Add Urine Microscopic? NO; Appearance Urine Clear (Clear); Bilirubin Urine Negative (Negative); Blood Urine Negative (Negative); Color Urine Yellow (Yellow); Glucose Urine UA Negative (Negative); Ketones Urine Trace mg/dL (Negative); Leukocyte Esterase Ur Negative LEU/UL (Negative); Nitrate Urine Negative (Negative); Protein Urine Negative (Negative); Specific Grav Ur 1.023 (1.001-1.035); Urobilinogen Urine 0.2 mg/dL (<2.0)
[2023-11-15 18:06] LABS: Alanine Aminotransferase 21 U/L (6-35); Albumin Level 4.9 g/dL (3.5-5.1); Alkaline Phosphatase 91 U/L (38-126); Anion Gap 9 mmol/L (4-12); Aspartate Amino Transferase 24 U/L (14-36); Bilirubin,Total 0.7 mg/dL (0.2-1.3); Blood Urea Nitrogen 16 mg/dL (7-17); Calcium 10.3 mg/dL (8.4-10.2); Carbon Dioxide 26 mmol/L (22-30); Chloride 100 mmol/L (98-107); Estimated CRCL calculation 105 ml/min; Estimated Glomerular Filt Rate > 60; Glucose 102 mg/dL (65-110); Lipase 63 U/L (23-300); Potassium 3.9 mmol/L (3.4-5.0); Sodium 135 mmol/L (137-145)
[2023-11-15] MEDS: ACETAMINOPHEN 500 MG TABLET 1000 MG PO (20:01)
[2023-11-15] MEDS: SODIUM CHLORIDE 0.9% IV 1,000 ML 999 ML IV CONT (20:04)
[2023-11-15] MEDS: KETOROLAC 15 MG/ML VIAL (*BKC) IV PUSH (20:09)
[2023-11-15 20:10] VITALS: BP 137/78; PULSE 76; RESP 15; TEMP 36.5; O2SAT 100
[2023-11-15 20:11] VITALS: BP 131/99; BP 137/95; BP 138/69; PULSE 70; PULSE 75; PULSE 89
--- NOTE | 2023-11-15 20:53 | ED.DIZZY ---
HPI - Dizziness General Chief Complaint: Dizziness Stated Complaint: dizzy Time Seen by Provider: 11/15/23 17:35 History of Present Illness HPI Narrative: 38-year-old female presents to the emergency department for evaluation for photophobia. Patient states she initially denied headache but she has headache in the emergency department. Patient states she often has photophobia with her headaches. Patient is also concerned that she may have a infection of her eczema. Time of evaluation patient appears to be in no distress and is resting comfortably. Related Data Home Medications Medication Instructions Recorded Confirmed fluoxetine 20 mg capsule 20 mg PO DAILY 04/10/23 06/20/23 hydroxyzine HCl 10 mg tablet 10 mg PO DIRECTED 04/10/23 06/20/23 Allergies Allergy/AdvReac Type Severity Reaction Status Date / Time iodine Allergy Severe Anaphylactic Verified 06/20/23 08:15 Shock shellfish derived Allergy Severe Anaphylactic Verified 06/20/23 08:15 Shock Sulfa (Sulfonamide Allergy Intermediate Rash Verified 06/20/23 08:15 Antibiotics) adhesive tape Allergy Mild Rash Verified 06/20/23 08:15 benzalkonium chloride Allergy Mild Rash Verified 06/20/23 08:15 gramicidin D Allergy Mild Rash Verified 06/20/23 08:15 hydrocortisone Allergy Mild Rash Verified 06/20/23 08:15 neomycin Allergy Mild Rash Verified 06/20/23 08:15 polymyxin B Allergy Mild Rash Verified 06/20/23 08:15 simvastatin AdvReac Mild Rash Verified 06/20/23 08:15 SHELLFISH Allergy Severe Anaphylactic Uncoded 06/20/23 08:15 Shock BACITRACIN ZINC Allergy Mild Rash Uncoded 06/20/23 08:15 NEOMYCIN SULFATE Allergy Mild Rash Uncoded 06/20/23 08:15 POLYMYXIN B SULFATE Allergy Mild Rash Uncoded 06/20/23 08:15 Review of Systems Review of Systems: All systems reviewed & are unremarkable except as noted in HPI and below PMFSH Past Medical History Medical History Anxiety Anxiety and depression GERD (gastroesophageal reflux disease) Hx of migraines Hyperlipidemia Mood disorder Prediabetes Seizures Surgical History Surgical History H/O adenoidectomy H/O: hysterectomy (~2019) History of tonsillectomy Ingrown toenail Previous section x2 Social History Social History Smoking status: Current some day smoker Second hand tobacco smoke exposure: No Alcohol intake: never Substance use: never Substance use type: does not use Living arrangements: with family Gender identity (if verbalized by the patient): Female Spiritual care concerns: No Agree to blood products: Yes Exam Narrative: APPEARANCE: Well appearing, no pain, no distress, well-nourished. HEAD: normocephalic, atraumatic. EYES: PERRLA/EOMI, conjunctivae clear. NOSE: Normal no drainage EARS:TMS clear with good light reflex. THROAT: Pharynx clear, no exudate. NECK: Supple. No adenopathy, no masses. RESPIRATORY: Airway patent, respirations nonlabored. Clear to auscultation bilaterally, no rales, rhonchi, wheezing. CARDIOVASCULAR: Regular rate and rhythm without murmurs rubs or gallops. ABDOMINAL: Soft, nontender, nondistended, normal bowel sounds MUSCULOSKELETAL: Moves all extremities. Strength/ROM intact, No edema, No calf tenderness. NEURO: Alert. Cranial nerves II through XII intact. Grossly intact SKIN: Eczema with irritation on right hand Course Vital Signs Vital signs: Vital Signs Temperature 98.4 F 11/15/23 14:13 Pulse Rate 64 11/15/23 14:13 Respiratory Rate 16 11/15/23 14:13 Blood Pressure 146/96 H 11/15/23 14:13 Pulse Oximetry 100 11/15/23 14:13 Oxygen Delivery Room Air 11/15/23 14:13 Temperature 97.7 F 11/15/23 20:10 Pulse Rate 89 11/15/23 20:11 Respiratory Rate 15 11/15/23 20:10 Blood Pressure 131/99 H 11/15/23 20:11 Pulse Oximetry 100
[2023-11-17 14:27] LABS: BEDSIDEPREGUCG Negative (Negative)
== END 2023-11-15 21:19 | disposition home or self-care (01) ==
PROVIDERS: Emergency Provider Emergency Medicine; PCP Physician Assistant
DX: G43.909 Migraine, unspecified, not intractable, without status migrainosus (principal); L30.9 Dermatitis, unspecified; E78.5 Hyperlipidemia, unspecified; R73.03 Prediabetes; K21.9 Gastro-esophageal reflux disease without esophagitis; F41.9 Anxiety disorder, unspecified; F32.A Depression, unspecified; F39 Unspecified mood [affective] disorder; F17.200 Nicotine dependence, unspecified, uncomplicated
CPT/HCPCS: 36415; 70450; 80053; 81003; 81025; 83690; 85025; 96361; 96374; 99284; A9270; J1885; J7030

== ENCOUNTER 2023-12-03 06:55 | Emergency (ER) | payer MEDICARE, SELFPAY ==
--- NOTE | ~2023-12-03 | XR_ITS ---
EXAMINATION: XR chest 2V DATE: 12/03/2023 08:49 INDICATION: Shortness of breath TECHNIQUE: frontal and lateral views of the chest were obtained. COMPARISON: Chest radiograph dated 01/13/2023 FINDINGS: The lungs remain clear with no focal airspace opacities, pulmonary edema, pleural effusion or pneumot horax. The cardiomediastinal silhouette is normal. Visualized bones and soft tissues are unremarkable . IMPRESSION: 1. No acute cardiopulmonary disease. Reviewed, dictated and finalized at location A.
[2023-12-03 07:01] VITALS: BP 150/83; PULSE 108; RESP 20; TEMP 36.4; O2SAT 99
[2023-12-03] MEDS: EPINEPHrine HCL INJ 1 MG/ML AMPUL 0.3 MG IM (07:15)
[2023-12-03] MEDS: diphenhydrAMINE HCl INJ 50 MG/ML VIAL 25 MG IV PUSH (07:16)
[2023-12-03] MEDS: methylPREDNISolone SOD SUCC 125 MG VIAL IV PUSH (07:16)
[2023-12-03] MEDS: FAMOTIDINE 20 MG/2 ML VIAL IV PUSH (07:16)
--- NOTE | 2023-12-03 07:52 | ED.ALLEREA ---
HPI - Allergic Reaction General Chief complaint: Allergic Reaction Stated complaint: allergic reaction, itching Time Seen by Provider: 12/03/23 07:06 History of Present Illness HPI narrative: Patient is a 38-year-old female who presents ER with concerns for allergic reaction to fish. She had some to [place] last night. She began have some itching so she took a Benadryl and went to bed. She took the medication 12:30 a.m.. She woke up this morning with additional itching and persistent cough. Denies sinus congestion. She has history of seafood and shellfish allergy but reports she can typically eat cod and tilapia. Related Data Home Medications Medication Instructions Recorded Confirmed fluoxetine 20 mg capsule 20 mg PO DAILY 04/10/23 06/20/23 hydroxyzine HCl 10 mg tablet 10 mg PO DIRECTED 04/10/23 06/20/23 Allergies Allergy/AdvReac Type Severity Reaction Status Date / Time iodine Allergy Severe Anaphylactic Verified 12/03/23 07:08 Shock shellfish derived Allergy Severe Anaphylactic Verified 12/03/23 07:08 Shock Sulfa (Sulfonamide Allergy Intermediate Rash Verified 12/03/23 07:08 Antibiotics) adhesive tape Allergy Mild Rash Verified 12/03/23 07:08 benzalkonium chloride Allergy Mild Rash Verified 12/03/23 07:08 gramicidin D Allergy Mild Rash Verified 12/03/23 07:08 hydrocortisone Allergy Mild Rash Verified 12/03/23 07:08 neomycin Allergy Mild Rash Verified 12/03/23 07:08 polymyxin B Allergy Mild Rash Verified 12/03/23 07:08 simvastatin AdvReac Mild Rash Verified 12/03/23 07:08 SHELLFISH Allergy Severe Anaphylactic Uncoded 12/03/23 07:08 Shock BACITRACIN ZINC Allergy Mild Rash Uncoded 12/03/23 07:08 NEOMYCIN SULFATE Allergy Mild Rash Uncoded 12/03/23 07:08 POLYMYXIN B SULFATE Allergy Mild Rash Uncoded 12/03/23 07:08 Review of Systems Review of Systems: All systems reviewed & are unremarkable except as noted in HPI and below Constitutional: Constitutional: Reports no additional constitutional complaints ENT: Denies nasal congestion and Reports sore throat Cardiovascular: Cardiovascular: Reports no additional cardiovascular complaints Respiratory: Respiratory: Denies chest congestion, Reports cough, Denies dyspnea and Denies wheezing Gastrointestinal: Gastrointestinal: Reports no additional gastrointestinal complaints Integumentary/Breasts: Skin/Breast: Reports pruritus, Denies erythema and Denies rash PMFSH Past Medical History Medical History Anxiety Anxiety and depression GERD (gastroesophageal reflux disease) Hx of migraines Hyperlipidemia Mood disorder Prediabetes Seizures Surgical History Surgical History H/O adenoidectomy H/O: hysterectomy (~2019) History of tonsillectomy Ingrown toenail Previous section x2 Social History Social History Smoking status: Current some day smoker Second hand tobacco smoke exposure: No Alcohol intake: never Substance use: never Substance use type: does not use Living arrangements: with family Gender identity (if verbalized by the patient): Female Spiritual care concerns: No Agree to blood products: Yes Exam Narrative: GENERAL: Anxious-appearing, well-nourished, and in no acute distress. HEAD: Normocephalic, atraumatic. ENT: Mucous membranes moist. mild pharyngeal erythema with midline uvula and no edema intraorally. NECK: Supple. CHEST: Clear to auscultation. No respiratory distress. HEART: Regular rate and rhythm. Normal peripheral pulses. ABDOMEN: Soft, nontender, nondistended. EXTREMITIES: Normal range of motion. No edema. SKIN: Warm, dry, no rash. Scratch callaway present. NEURO: Alert and oriented x3. PSYCH: Mild anxiousness, otherwise normal thought content. Course Course Emergency Course: patient is symptom-free s
[2023-12-03 08:35] LABS: Basophils Percent Auto 0.5 % (0.2-1.2); Eosinophils Absolute Auto 0.1 K/mm3 (0-0.3); Eosinophils Percent Auto 1.4 % (0-4.4); Hematocrit 42.8 % (37.0-47.0); Hemoglobin 14.5 g/dL (12.0-15.0); Immature Granulocyte Absolute 0.02 K/mm3 (0.00-0.031); Immature Granulocyte Percent A 0.3 % (0-0.5); Lymphocytes Absolute Auto 1.85 K/mm3 (0.9-3.2); Lymphocytes Percent Auto 32.2 % (18.3-44.2); Mean Corpuscular HGB Conc 33.9 g/dl (32-36); Mean Corpuscular Volume 85.6 fl (80-100); Mean Platelet Volume 10.1 fl (7.4-10.4); Monocytes Absolute Auto 0.4 K/mm3 (0.1-0.6); Monocytes Percent Auto 6.3 % (2.6-8.5); Neutrophils Absolute Auto 3.4 K/mm3 (1.3-6.7); Neutrophils Percent Auto 59.3 % (45.5-73.1); Platelet Count Result 217 k/mm3 (150-375); Red Cell Distribution Width 12.9 % (11.5-14.5); White Blood Count 5.8 K/mm3 (4.5-10.0)
[2023-12-03] MEDS: SODIUM CHLORIDE 0.9% IV 500 ML (08:43)
[2023-12-03 08:47] LABS: INR 0.9; Prothrombin Time 12.1 Seconds (11.1-14.7)
[2023-12-03 08:48] LABS: Alanine Aminotransferase 19 U/L (6-35); Albumin Level 4.5 g/dL (3.5-5.1); Alkaline Phosphatase 70 U/L (38-126); Anion Gap 11 mmol/L (4-12); Aspartate Amino Transferase 24 U/L (14-36); Bilirubin,Total 0.5 mg/dL (0.2-1.3); Blood Urea Nitrogen 13 mg/dL (7-17); Calcium 9.5 mg/dL (8.4-10.2); Carbon Dioxide 24 mmol/L (22-30); Chloride 102 mmol/L (98-107); Estimated CRCL calculation 124 ml/min; Estimated Glomerular Filt Rate > 60; Glucose 120 mg/dL (65-110); Partial Thromboplastin Time 25.7 Seconds (22.3-36.8); Potassium 3.8 mmol/L (3.4-5.0); Sodium 137 mmol/L (137-145)
[2023-12-03 09:00] LABS: Troponin I < 0.012 ng/mL (0.000-0.034)
[2023-12-03 09:41] VITALS: BP 122/61; PULSE 83; RESP 14; O2SAT 100
--- NOTE | 2023-12-03 10:20 | PC.NURSE ---
Patient resting/sleeping at this time. all vital signs within normal limits.
[2023-12-03 10:30] VITALS: BP 129/76; PULSE 75; RESP 17; O2SAT 95
[2023-12-03 11:45] VITALS: BP 136/68; PULSE 84; RESP 16; O2SAT 99
== END 2023-12-03 12:03 | disposition home or self-care (01) ==
PROVIDERS: Emergency Provider Emergency Medicine; PCP Physician Assistant
DX: L29.9 Pruritus, unspecified (principal); R05.9 Cough, unspecified; T78.1XXA Other adverse food reactions, not elsewhere classified, initial encounter; E78.5 Hyperlipidemia, unspecified; R73.03 Prediabetes; K21.9 Gastro-esophageal reflux disease without esophagitis; F41.9 Anxiety disorder, unspecified; F32.A Depression, unspecified; F39 Unspecified mood [affective] disorder; F17.200 Nicotine dependence, unspecified, uncomplicated; Z91.013 Allergy to seafood; Z90.710 Acquired absence of both cervix and uterus
CPT/HCPCS: 36415; 71046; 80053; 84484; 85025; 85610; 85730; 96361; 96372; 96374; 96375; 99284; J0171; J1200; J2919; J7040

== ENCOUNTER 2023-12-30 08:06 | Emergency (ER) | payer MEDICARE, SELFPAY ==
--- NOTE | ~2023-12-30 | XR_ITS ---
XR chest 2V Ordering provider: Denisse Pascual APRN History: 38 years Female with . congested cough, positive sick contacts . Comparison: None. FINDINGS: MEDIASTINUM: The cardiac silhouette is not enlarged. LUNGS: No infiltrates, effusions or pneumothorax. OTHER: No free air under the diaphragm. IMPRESSION: No acute cardiopulmonary pathology. Reviewed, dictated and finalized at location A. AVER
[2023-12-30 08:18] VITALS: BP 135/64; PULSE 74; RESP 18; TEMP 35.7; O2SAT 100
[2023-12-30 08:21] VITALS: BP 135/64; PULSE 74; RESP 18; TEMP 35.7; O2SAT 100
--- NOTE | 2023-12-30 08:22 | ED.URI ---
HPI - URI/Sore Throat General Chief Complaint: Upper Respiratory Infection Stated Complaint: throat hurts,sore in mouth,diarrhea,ches Time Seen by Provider: 12/30/23 08:24 Source: patient, RN notes reviewed and old records reviewed Mode of arrival: ambulatory Limitations: no limitations History of Present Illness HPI Narrative: Patient presents with multiple complaints that all began 4 days ago. Patient reports that she noticed a canker sore in her mouth, so stopped using her maintenance inhaler. Since then she has noticed increased coughing and sensation of chest tightness. She also has a headache, she reports coughing makes this worse and Tylenol is not helping. She reports loose stools over the past 4 days, no abdominal pain, no nausea or vomiting. She reports sore throat that she attributes to cough. She reports cough is nonproductive. She does report that her son was sick with a cough a couple of weeks ago. She states that she feels her since worse. She has not been taking any cough medications [id number]. She denies any fever, chills, sweats. She is in no distress, including respiratory distress at this time Related Data Home Medications Medication Instructions Recorded Confirmed fluoxetine 20 mg capsule 20 mg PO DAILY 04/10/23 12/30/23 atorvastatin 80 mg tablet 80 mg PO DAILY 12/30/23 12/30/23 fluticasone furoate 100 See Rx Instructions .Route .COMPLEX 12/30/23 12/30/23 mcg-vilanterol 25 mcg/dose inhalation powder (Breo Ellipta) lisinopril 10 mg tablet 10 mg PO DAILY 12/30/23 12/30/23 progesterone micronized 200 mg 200 mg PO DAILY 12/30/23 12/30/23 capsule Allergies Allergy/AdvReac Type Severity Reaction Status Date / Time iodine Allergy Severe Anaphylactic Verified 12/30/23 08:19 Shock shellfish derived Allergy Severe Anaphylactic Verified 12/30/23 08:19 Shock Sulfa (Sulfonamide Allergy Intermediate Rash Verified 12/30/23 08:19 Antibiotics) adhesive tape Allergy Mild Rash Verified 12/30/23 08:19 benzalkonium chloride Allergy Mild Rash Verified 12/30/23 08:19 gramicidin D Allergy Mild Rash Verified 12/30/23 08:19 hydrocortisone Allergy Mild Rash Verified 12/30/23 08:19 neomycin Allergy Mild Rash Verified 12/30/23 08:19 polymyxin B Allergy Mild Rash Verified 12/30/23 08:19 simvastatin AdvReac Mild Rash Verified 12/30/23 08:19 SHELLFISH Allergy Severe Anaphylactic Uncoded 12/03/23 07:08 Shock BACITRACIN ZINC Allergy Mild Rash Uncoded 12/03/23 07:08 NEOMYCIN SULFATE Allergy Mild Rash Uncoded 12/03/23 07:08 POLYMYXIN B SULFATE Allergy Mild Rash Uncoded 12/03/23 07:08 Review of Systems Review of Systems: All systems reviewed & are unremarkable except as noted in HPI and below Constitutional: Constitutional: Reports no additional constitutional complaints ENT: Reports system reviewed and no additional complaints, except as documented, Reports headache(s) and Reports sore throat Comments: Sore in mouth Cardiovascular: Cardiovascular: Reports no additional cardiovascular complaints Respiratory: Respiratory: Reports no additional respiratory complaints, Reports chest congestion, Reports cough and Reports wheezing Gastrointestinal: Gastrointestinal: Reports no additional gastrointestinal complaints, Denies abdominal pain, Reports diarrhea, Reports loose stools, Denies nausea and Denies vomiting PMFSH Past Medical History Medical History Anxiety Anxiety and depression GERD (gastroesophageal reflux disease) Hx of migraines Hyperlipidemia Mood disorder Prediabetes Seizures Surgical History Surgical History H/O adenoidectomy H/O: hysterectomy (~2019) History of tonsillectomy Ingrown toenail Previous section x2 Social History Social History Smoking status: Current some day smoker Second hand tobacco smoke exposure: No Alcohol intake: never Substance use: never Substance use type: does not use Living arrangements: with family Gender identity (if verbalized by the patient): Female Spiritual care concerns: No Agree to blood products: Yes Comments At the time of my signature, I reviewed and agree with the nursing past medical, surgical, social, and family history. There is no relevant family history pertinent to the patient complaint. Exam Const: General: cooperative, no acute distress, alert and awake Nutritional Appearance: obese Orientation/consciousness: oriented to person, oriented to place and oriented to time Limitations: no limitations HENMT: Head: normal to inspection Mouth: Yes moist mucous membranes and Yes other (Single canker sore) Throat: posterior oropharynx normal Resp: Effort & Inspection: normal respiratory effort and able to speak in complete sentences Auscultation: clear to auscultation bilaterally, no crackles, no rales, no rhonchi and no wheezes Cardio: Palpation: normal PMI Rate: regular rate Rhythm: regular rhythm Heart sounds: S1 normal heart sound present and S2 normal heart sound present Neuro: General: oriented to person, oriented to place and oriented to time Cranial nerves: Yes CN's II-XII intact bilaterally Psych: Appearance: grossly normal Thought process: Normal thought process present Insight: Good insight present (Psych) Judgement: Good judgement present (Psych) Course Course Level of Care: Express Care Visit Vital Signs Vital signs: Vital Signs Temperature 96.3 F L 12/30/23 08:18 Pulse Rate 74 12/30/23 08:18 Respiratory Rate 18 12/30/23 08:18 Blood Pressure 135/64 12/30/23 08:18 Pulse Oximetry 100 12/30/23 08:18 Oxygen Delivery Room Air 12/30/23 08:18 Temperature 96.3 F L 12/30/23 08:21 Pulse Rate 74 12/30/23 08:21 Respiratory Rate 18 12/30/23 08:21 Blood Pressure 135/64 12/30/23 08:21 Pulse Oximetry 100 12/30/23 08:21 Oxygen Delivery Room Air 12/30/23 08:21 Reviewed MDM - URI/Sore Throat MDM Narrative Medical decision making narrative: Patient with multiple complaints, likely viral in origin. Clear chest x-ray, no distress. Supportive care measures discussed. Importance of using medications as prescribed and not self DCing discussed with patient. Follow-up primary care provider. Discharge instructions reviewed with patient, as well as provided in writing per nursing staff. The instructions also include specific and strict return/GO TO THE ER as well as f/u information. All questions have been answered, and the patient deny any further questions with discharge and discharge plan. Some parts of this dictation were generated by voice recognition software and may contain typographical and/or grammatical inaccuracies. Differential Diagnosis Differential diagnosis: Likely upper respiratory infection, otitis media, sinusitis, viral infection and bronchitis Medical Records Attestation: I reviewed the patient's medical records. Imaging Data Attestation: I personally reviewed and interpreted this imaging study as follows: My impression: negative chest Radiologist's impression: [facility] [address] [place] [address] XRay Report Signed Patient: Sharona Thompson : 1985 MR#: [id number] Age: 38 Acct:[id number] Loc: [facility] ADM Date: 12/30/23Attending Dr: Ordering Physician: Denisse Pascual FNP Date of Service: 12/30/23 Procedure(s): XR chest 2V Accession Number(s): [id number] cc: Denisse Pascual FNP; David, Kendal MONK~ XR chest 2V Ordering provider: Denisse Pascual APRN History: 38 years Female with . congested cough, positive sick contacts . Comparison: None. FINDINGS: MEDIASTINUM: The cardiac silhouette is not enlarged. LUNGS: No infiltrates, effusions or pneumothorax. OTHER: No free air under the diaphragm. IMPRESSION: No acute cardiopulmonary pathology. Reviewed, dictated and finalized at location A. SEWER Dictated By: Shayne Johnston MD 12/30/23 0847 Signed By: <Electronically signed by Shayne Johnston MD in OV> 12/30/23 0849 Discharge Plan Discharge Clinical Impression: Upper respiratory infection Patient Disposition: Home, Self-Care Condition: Stable Instructions: Antibiotic Form, Viral Syndrome (ED) Additional Instructions: Take all medications as prescribed. Follow with primary care provider. Emergency department for new or worse symptoms Patient Language: Chilean Prescriptions: New benzonatate 200 mg capsule 200 mg PO TID PRN (Reason: cough) Qty: 30 0RF No Action fluoxetine 20 mg capsule 20 mg PO DAILY ondansetron 8 mg tablet,disintegrating 8 mg PO Q4-6H PRN (Reason: nausea and vomiting) Qty: 20 0RF atorvastatin 80 mg tablet 80 mg PO DAILY lisinopril 10 mg tablet 10 mg PO DAILY progesterone micronized 200 mg capsule 200 mg PO DAILY fluticasone furoate-vilanterol [Breo Ellipta] 100-25 mcg/dose blister with device See Rx Instructions .ROUTE .COMPLEX Rx Instructions: Rx albuterol sulfate 90 mcg/actuation HFA aerosol inhaler See Rx Instructions .ROUTE .COMPLEX Qty: 18 10RF Dose Instruction: INHALE ONE PUFF BY MOUTH EVERY 4 HOURS NEEDED FOR SHORTNESS OF BREATH OR FOR WHEEZING Rx Instructions: INHALE ONE PUFF BY MOUTH EVERY 4 HOURS NEEDED FOR SHORTNESS OF BREATH OR FOR WHEEZING epinephrine 0.3 mg/0.3 mL auto-injector 0.3 mg IM ONCE Qty: 2 0RF Rx Instructions: as a single dose; may repeat once prazosin 1 mg capsule 1 mg PO BID Qty: 60 0RF famotidine 10 mg tablet 10 mg PO BID Qty: 14 0RF cetirizine [Zyrtec] 10 mg tablet 10 mg PO DAILY Qty: 7 0RF Follow-up/Referrals: David,LACHO Edmonds [Primary Care Provider] - 1 Week Stand Alone Forms: Work/School Release IP Time of Disposition: 08:56
== END 2023-12-30 09:02 | disposition home or self-care (01) ==
PROVIDERS: Emergency Provider Nurse Practitioner Family; PCP Physician Assistant
DX: J06.9 Acute upper respiratory infection, unspecified (principal); F17.200 Nicotine dependence, unspecified, uncomplicated; K21.9 Gastro-esophageal reflux disease without esophagitis; E78.5 Hyperlipidemia, unspecified; R73.03 Prediabetes; F41.9 Anxiety disorder, unspecified; F32.A Depression, unspecified
CPT/HCPCS: 71046; 99213; G0463

== ENCOUNTER 2024-01-02 11:51 | Emergency (ER) | payer MEDICARE, SELFPAY ==
--- NOTE | ~2024-01-02 | CT_ITS ---
EXAMINATION: CT brain wo con DATE: 01/02/2024 12:37 INDICATION: Headache TECHNIQUE: Computed tomography (CT) of the head was performed without intravenous contrast. Sagittal and coronal reconstructions were performed. The mA was adjusted according to patient size. Iterative reconstruction technique was employed. The dose-length product was 873.97 mGy-cm. COMPARISON: head CT dated 11/15/2023 FINDINGS: No acute intracranial hemorrhage, acute infarction or abnormal extra axial fluid collection. Ventricl es are normal and symmetric. No mass/mass effect. Mild mucosal thickening in the bilateral ethmoid an d right maxillary sinuses. The orbits and mastoid air cells are normal. IMPRESSION: 1. Normal brain. No acute intracranial process. 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
--- NOTE | ~2024-01-02 | XR_ITS ---
EXAMINATION: [id number]_[id number] DATE: 01/02/2024 12:43 INDICATION: Neck pain. TECHNIQUE: 3 views of cervical spine were obtained. COMPARISON: Cervical spine radiographs 09/07/2010 FINDINGS: There is 4 degrees levocurvature of cervical spine. Vertebral body heights and intervertebr al disc heights are normal. The facet joints are unremarkable. No central canal stenosis or preverteb ral soft tissue swelling. IMPRESSION: 1. No etiology for the patient's symptoms. Reviewed, dictated and finalized at location A. ENT ADVOCATE
[2024-01-02 11:59] VITALS: O2SAT 98
[2024-01-02 12:02] VITALS: BP 137/92; PULSE 80; RESP 18; TEMP 36.7; O2SAT 97
--- NOTE | 2024-01-02 12:06 | ED_ITS ---
HPI - URI/Sore Throat General Chief Complaint: Upper Respiratory Infection Stated Complaint: diarrhea, vomiting, cough, lost her voice Time Seen by Provider: 01/02/24 11:54 Source: patient Mode of arrival: ambulatory Limitations: no limitations History of Present Illness HPI Narrative: This is a 38-year-old female that presents to the emergency department for multiple complaints. Reports over the last week and a half she has had cough, congestion, vomiting, diarrhea. Reports she has also been struggling with migraines. Also reports she felt like something popped in her neck. She was seen at urgent care 2 days ago for her cough and had a normal chest x-ray. Denies fevers, shortness of breath, focal numbness, weakness. Related Data Home Medications Medication Instructions Recorded Confirmed fluoxetine 20 mg capsule 20 mg PO DAILY 04/10/23 12/30/23 atorvastatin 80 mg tablet 80 mg PO DAILY 12/30/23 12/30/23 fluticasone furoate 100 See Rx Instructions .Route .COMPLEX 12/30/23 12/30/23 mcg-vilanterol 25 mcg/dose inhalation powder (Breo Ellipta) lisinopril 10 mg tablet 10 mg PO DAILY 12/30/23 12/30/23 progesterone micronized 200 mg 200 mg PO DAILY 12/30/23 12/30/23 capsule Allergies Allergy/AdvReac Type Severity Reaction Status Date / Time iodine Allergy Severe Anaphylactic Verified 12/30/23 08:19 Shock shellfish derived Allergy Severe Anaphylactic Verified 12/30/23 08:19 Shock Sulfa (Sulfonamide Allergy Intermediate Rash Verified 12/30/23 08:19 Antibiotics) adhesive tape Allergy Mild Rash Verified 12/30/23 08:19 benzalkonium chloride Allergy Mild Rash Verified 12/30/23 08:19 gramicidin D Allergy Mild Rash Verified 12/30/23 08:19 hydrocortisone Allergy Mild Rash Verified 12/30/23 08:19 neomycin Allergy Mild Rash Verified 12/30/23 08:19 polymyxin B Allergy Mild Rash Verified 12/30/23 08:19 simvastatin AdvReac Mild Rash Verified 12/30/23 08:19 SHELLFISH Allergy Severe Anaphylactic Uncoded 12/03/23 07:08 Shock BACITRACIN ZINC Allergy Mild Rash Uncoded 12/03/23 07:08 NEOMYCIN SULFATE Allergy Mild Rash Uncoded 12/03/23 07:08 POLYMYXIN B SULFATE Allergy Mild Rash Uncoded 12/03/23 07:08 Review of Systems Review of Systems: CONSTITUTIONAL: Denies fever EYES: Denies visual changes ENT: Reports rhinorrhea, congestion. Denies sore throat, or otalgia. CARDIOVASCULAR: Denies chest pain RESPIRATORY: Reports cough. Denies dyspnea. GASTROINTESTINAL: Reports nausea, vomiting, and diarrhea. All systems reviewed & are unremarkable except as noted in HPI and below PMFSH Past Medical History Medical History Anxiety Anxiety and depression GERD (gastroesophageal reflux disease) Hx of migraines Hyperlipidemia Mood disorder Prediabetes Seizures Surgical History Surgical History H/O adenoidectomy H/O: hysterectomy (~2019) History of tonsillectomy Ingrown toenail Previous section x2 Social History Social History Smoking status: Current some day smoker Second hand tobacco smoke exposure: No Alcohol intake: never Substance use: never Substance use type: does not use Living arrangements: with family Gender identity (if verbalized by the patient): Female Spiritual care concerns: No Agree to blood products: Yes Exam Narrative: GENERAL: Well-appearing, well-nourished, and in no acute distress. HEAD: Normocephalic, atraumatic. EYES: PERRLA and EOMI. ENT: Nares clear, no rhinorrhea or epistaxis. Mucous membranes moist. Oropharynx without tonsillar hypertrophy exudate or other lesions. Bilateral TMs pearly wade non-bulging NECK: Supple. No adenopathy or masses. CHEST: Clear to auscultation. No respiratory distress. No wheezes rales or rhonchi HEART: Regular rate and rhythm. No murmur heard. Normal peripheral pulses. ABDOMEN: Soft, nontender, nondistended, normal active bowel sounds. EXTREMITIES: Normal range of motion. No edema. SKIN: Warm, dry, no rash. NEURO: No focal deficits. Alert and oriented x3. CN II-XII grossly intact PSYCH: Normal mood and affect Course Course Emergency Course: Patient updated on her workup and agrees with plan of care Vital Signs Vital signs: Vital Signs Pulse Oximetry 98 01/02/24 11:59 Oxygen Delivery Room Air 01/02/24 11:59 Temperature 98.1 F 01/02/24 14:39 Pulse Rate 80 01/02/24 12:12 Respiratory Rate 20 01/02/24 14:39 Blood Pressure 139/83 01/02/24 14:39 Pulse Oximetry 100 01/02/24 14:39 Oxygen Delivery Room Air 01/02/24 12:02 MDM - URI/Sore Throat MDM Narrative Medical decision making narrative: Patient presents to the ER for several complaints, viral symptoms. Ongoing over the last week and a half. she is afebrile and nontoxic appearing. Her vitals are stable. CBC metabolic panel without concerning findings. Urine with 6-10 white blood cells, also squamous epithelial cells. Patient does not have any urinary symptoms. This will be sent for culture. Influenza, RSV and COVID s creens are negative. CT brain is normal. CT cervical spine is without acute findings. Patient updated on her workup. Instructed on further care of likely viral infection. She is to follow up with primary doctor. She was given warnings to return to the ER Differential Diagnosis Differential diagnosis: Likely upper respiratory infection, sinusitis, viral infection, bronchitis and influenza Lab Data Attestation: I reviewed the patient's lab results. 01/02/24 12:50 01/02/24 12:50 Labs: Lab Results 01/02/24 01/02/24 01/02/24 Range/Units 11:56 12:15 12:50 WBC 7.4 (4.5-10.0) K/mm3 RBC 4.94 (4.2-5.4) M/mm3 Hgb 14.5 (12.0-15.0) g/dL Hct 41.6 (37.0-47.0) % MCV 84.2 (80-100) fl MCH 29.4 (26-34) pg MCHC 34.9 (32-36) g/dl RDW 12.0 (11.5-14.5) % Plt Count 178 (150-375) k/mm3 MPV 9.5 (7.4-10.4) fl Immature Gran % (Auto) 0.1 (0-0.5) % Neut % (Auto) 72.7 (45.5-73.1) % Lymph % (Auto) 22.6 (18.3-44.2) % Coleman % (Auto) 3.9 (2.6-8.5) % Eos % (Auto) 0.3 (0-4.4) % Baso % (Auto) 0.4 (0.2-1.2) % Lymph # (Auto) 1.67 (0.9-3.2) K/mm3 Coleman # (Auto) 0.3 (0.1-0.6) K/mm3 Eos # (Auto) 0.0 (0-0.3) K/mm3 Baso # (Auto) 0.0 (0.0-0.1) K/mm3 Abs Immat Gran (auto) 0.01 (0.00-0.031) K/mm3 Absolute Neuts (auto) 5.4 (1.3-6.7) K/mm3 Absolute Nucleated RBC 0.000 (0.0-0.012) K/mm3 Nucleated RBC % 0.0 (0.0-0.2) % Sodium 137 (137-145) mmol/L Potassium 4.1 (3.4-5.0) mmol/L Chloride 103 (98-107) mmol/L Carbon Dioxide 28 (22-30) mmol/L Anion Gap 6 (4-12) mmol/L BUN 12 (7-17) mg/dL Creatinine 0.60 L (0.7-1.0) mg/dL Estim Creat Clear Calc 124 ml/min Estimated GFR > 60 (59 - ) Glucose 110 (65-110) mg/dL Calcium 9.5 (8.4-10.2) mg/dL Urine Color Yellow (Yellow) Urine Appearance Cloudy H (Clear) Urine pH 6.0 (5.0-9.0) Ur Specific [place] 1.017 (1.001-1.035) Urine Protein Negative (Negative) mg/dL Urine Glucose (UA) Negative (Negative) mg/dL Urine Ketones Negative (Negative) mg/dL Ur Blood (Man) Negative (Negative) Urine Nitrate Negative (Negative) Urine Bilirubin Negative (Negative) Urine Urobilinogen 0.2 (<2.0) mg/dL Leukocyte Esterase Rfl Negative (Negative) LATRICE/UL Urine RBC 0-2 (0-2) /hpf Urine WBC 6-10 H (0-3) /hpf Ur Squamous Epith Cells Few (Few) /hpf Urine Bacteria 1+ H /hpf Urine Casts 0-2 Influenza A (RT-PCR) Negative (Negative) Influenza B (RT-PCR) Negative (Negative) RSV (RT-PCR) Negative (Negative) SARS-CoV-2 RNA (RT-PCR) Negative (Negative) Imaging Data Radiologist's impression: ITS Impressions Head CT 01/02/24 12:45 IMPRESSION: 1. Normal brain. No acute intracranial process. Cervical Spine X-Ray 01/02/24 12:47 IMPRESSION: 1. No etiology for the patient's symptoms. Critical Care Time Critical Care Time Critical Care Time: No Discharge Plan Discharge Clinical Impression: Acute viral syndrome Patient Disposition: Home, Self-Care Condition: Stable Instructions: Viral Syndrome (ED) Additional Instructions: Return to the emergency department if you experience fever, chest pain, shortness of breath, abdominal pain with nausea and vomiting, sudden onset weakness, numbness, or any other symptoms that are concerning to you. Rest. Remain well hydrated. Over the counter pain medication as needed. Zyrtec for runny nose. Flonase for nasal congestion. Ondansetron as needed for nausea Follow up with primary care doctor Prescriptions: New ondansetron 4 mg tablet,disintegrating 4 mg PO Q8H PRN (Reason: nausea and vomiting) Qty: 14 0RF No Action fluoxetine 20 mg capsule 20 mg PO DAILY ondansetron 8 mg tablet,disintegrating 8 mg PO Q4-6H PRN (Reason: nausea and vomiting) Qty: 20 0RF atorvastatin 80 mg tablet 80 mg PO DAILY lisinopril 10 mg tablet 10 mg PO DAILY progesterone micronized 200 mg capsule 200 mg PO DAILY fluticasone furoate-vilanterol [Breo Ellipta] 100-25 mcg/dose blister with device See Rx Instructions .ROUTE .COMPLEX Rx Instructions: Rx benzonatate 200 mg capsule 200 mg PO TID PRN (Reason: cough) Qty: 30 0RF albuterol sulfate 90 mcg/actuation HFA aerosol inhaler See Rx Instructions .ROUTE .COMPLEX Qty: 18 10RF Dose Instruction: INHALE ONE PUFF BY MOUTH EVERY 4 HOURS NEEDED FOR SHORTNESS OF BREATH OR FOR WHEEZING Rx Instructions: INHALE ONE PUFF BY MOUTH EVERY 4 HOURS NEEDED FOR SHORTNESS OF BREATH OR FOR WHEEZING epinephrine 0.3 mg/0.3 mL auto-injector 0.3 mg IM ONCE Qty: 2 0RF Rx Instructions: as a single dose; may repeat once prazosin 1 mg capsule 1 mg PO BID Qty: 60 0RF famotidine 10 mg tablet 10 mg PO BID Qty: 14 0RF cetirizine [Zyrtec] 10 mg tablet 10 mg PO DAILY Qty: 7 0RF Follow-up/Referrals: David,LACHO Edmonds [Primary Care Provider] -
[2024-01-02 12:12] VITALS: BP 137/92; PULSE 80; RESP 18; TEMP 36.7; O2SAT 99
[2024-01-02] MEDS: ONDANSETRON HCL ODT 4 MG TABLET PO (12:20)
[2024-01-02] MEDS: ACETAMINOPHEN 500 MG TABLET 1000 MG PO (12:21)
[2024-01-02] MEDS: KETOROLAC 30 MG/ML VIAL (*BKC) IM (12:22)
[2024-01-02 12:36] LABS: Add Urine Microscopic? YES; Appearance Urine Cloudy (Clear); Bacteria Urine 1+ /hpf; Bilirubin Urine Negative (Negative); Blood Urine Negative (Negative); Color Urine Yellow (Yellow); Glucose Urine UA Negative (Negative); Ketones Urine Negative (Negative); Leukocyte Esterase Ur Negative LEU/UL (Negative); Nitrate Urine Negative (Negative); Non Pathogenic Casts 0-2; Protein Urine Negative (Negative); RBC Urine 0-2 /hpf (0-2); Specific Grav Ur 1.017 (1.001-1.035); Squamous Epithelial Cell Urine Few /hpf (Few); Urobilinogen Urine 0.2 mg/dL (<2.0)
[2024-01-02 12:46] LABS: Influenza A QL RT-PCR Negative (Negative); Influenza B QL RT-PCR Negative (Negative); RSV RNA, RT-PCR Negative (Negative); SARS-CoV-2 RNA PCR Negative (Negative)
[2024-01-02 13:02] LABS: Basophils Percent Auto 0.4 % (0.2-1.2); Eosinophils Percent Auto 0.3 % (0-4.4); Hematocrit 41.6 % (37.0-47.0); Hemoglobin 14.5 g/dL (12.0-15.0); Immature Granulocyte Absolute 0.01 K/mm3 (0.00-0.031); Immature Granulocyte Percent A 0.1 % (0-0.5); Lymphocytes Absolute Auto 1.67 K/mm3 (0.9-3.2); Lymphocytes Percent Auto 22.6 % (18.3-44.2); Mean Corpuscular HGB Conc 34.9 g/dl (32-36); Mean Corpuscular Hemoglobin 29.4 pg (26-34); Mean Corpuscular Volume 84.2 fl (80-100); Mean Platelet Volume 9.5 fl (7.4-10.4); Monocytes Absolute Auto 0.3 K/mm3 (0.1-0.6); Monocytes Percent Auto 3.9 % (2.6-8.5); Neutrophils Absolute Auto 5.4 K/mm3 (1.3-6.7); Neutrophils Percent Auto 72.7 % (45.5-73.1); Platelet Count Result 178 k/mm3 (150-375); Red Blood Count 4.94 M/mm3 (4.2-5.4); White Blood Count 7.4 K/mm3 (4.5-10.0)
[2024-01-02 13:14] LABS: Anion Gap 6 mmol/L (4-12); Blood Urea Nitrogen 12 mg/dL (7-17); Calcium 9.5 mg/dL (8.4-10.2); Carbon Dioxide 28 mmol/L (22-30); Chloride 103 mmol/L (98-107); Estimated CRCL calculation 124 ml/min; Estimated Glomerular Filt Rate > 60; Glucose 110 mg/dL (65-110); Potassium 4.1 mmol/L (3.4-5.0); Sodium 137 mmol/L (137-145)
[2024-01-02] MEDS: METOCLOPRAMIDE HCL INJ 10 MG/2 ML VIAL IV PUSH (14:27)
[2024-01-02] MEDS: diphenhydrAMINE HCl INJ 50 MG/ML VIAL 25 MG IV PUSH (14:27)
[2024-01-02] MEDS: SODIUM CHLORIDE 0.9% IV 1,000 ML 999 ML IV CONT (14:33)
[2024-01-02 14:39] VITALS: BP 139/83; RESP 20; TEMP 36.7; O2SAT 100
[2024-01-02 15:39] VITALS: BP 139/88; PULSE 73; RESP 16; TEMP 36.7; O2SAT 100
[2024-01-05 10:02] LABS: BEDSIDEPREGUCG Negative (Negative)
== END 2024-01-02 15:50 | disposition home or self-care (01) ==
PROVIDERS: Emergency Provider Physician Assistant; PCP Physician Assistant
DX: B34.9 Viral infection, unspecified (principal); Z20.822 Contact with and (suspected) exposure to COVID-19; E78.5 Hyperlipidemia, unspecified; R73.03 Prediabetes; K21.9 Gastro-esophageal reflux disease without esophagitis; F41.9 Anxiety disorder, unspecified; F32.A Depression, unspecified; F39 Unspecified mood [affective] disorder; F17.200 Nicotine dependence, unspecified, uncomplicated; Z90.710 Acquired absence of both cervix and uterus; Z79.899 Other long term (current) drug therapy
CPT/HCPCS: 36415; 70450; 72040; 80048; 81001; 81025; 85025; 87086; 87637; 96361; 96372; 96374; 96375; 99284; A9270; J1200; J1885; J2765; J7030

== ENCOUNTER 2024-01-08 08:21 | Emergency (ER) | payer MEDICARE, SELFPAY ==
--- NOTE | ~2024-01-08 | XR_ITS ---
EXAMINATION: XR chest 1V portable DATE: 01/08/2024 09:15 INDICATION: Persistent cough TECHNIQUE: frontal view of the chest was obtained. COMPARISON: Chest radiograph dated 12/30/2023 FINDINGS: The lungs remain clear with no focal airspace opacities, pulmonary edema, pleural effusion or pneumot horax. The cardiomediastinal silhouette is normal. Visualized bones and soft tissues are unremarkable . IMPRESSION: 1. No acute cardiopulmonary disease. 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
--- NOTE | ~2024-01-08 | XR_ITS ---
Right foot Technique: AP, oblique, and lateral views were obtained. Clinical History: Pain Findings: No acute fracture or dislocation is seen. Osseous alignment is anatomic. Joint spaces are p reserved without erosive or degenerative change. Soft tissues are unremarkable. Impression: Unremarkable right foot radiographs. Reviewed, dictated and finalized at location . 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
[2024-01-08 08:31] VITALS: BP 135/97; PULSE 84; RESP 20; TEMP 36.7; O2SAT 96
[2024-01-08] MEDS: PROCHLORPERAZINE EDISYLATE 10 MG/2 ML VIAL IV PUSH (09:01)
[2024-01-08] MEDS: diphenhydrAMINE HCl INJ 50 MG/ML VIAL 25 MG IV PUSH (09:01)
[2024-01-08] MEDS: KETOROLAC 15 MG/ML VIAL (*BKC) IV PUSH (09:02)
[2024-01-08 10:01] VITALS: BP 135/78; PULSE 70; RESP 18; O2SAT 97
--- NOTE | 2024-01-08 10:45 | ED.GENADULT ---
HPI - General Adult General Chief complaint: Nausea/Vomiting/Diarrhea Stated complaint: many complaints Time Seen by Provider: 01/08/24 08:24 History of Present Illness HPI narrative: this is a 38-year-old female presenting with multiple complaints. First complaint is a migraine. Patient says she is having her typical migraine although it has been lasting for 1 week. Patient describes the pain as a pounding throughout her entire head. No visual changes. No loss of conscious. Was not sudden in onset. Patient is also complaining of pain in her right foot. Patient says she has been walking her around more than usual lately yesterday she felt a crack in increased pain minor amount of swelling. Patient also notes that she has an increased amount of stress as 1 of her children has mental health issues and may be transferred across the country for further care. She has brought this up multiple times in the interview without prompting. It seems to be weighing heavily on her mind. Related Data Home Medications Medication Instructions Recorded Confirmed fluoxetine 20 mg capsule 20 mg PO DAILY 04/10/23 12/30/23 atorvastatin 80 mg tablet 80 mg PO DAILY 12/30/23 12/30/23 fluticasone furoate 100 See Rx Instructions .Route .COMPLEX 12/30/23 12/30/23 mcg-vilanterol 25 mcg/dose inhalation powder (Breo Ellipta) lisinopril 10 mg tablet 10 mg PO DAILY 12/30/23 12/30/23 progesterone micronized 200 mg 200 mg PO DAILY 12/30/23 12/30/23 capsule Allergies Allergy/AdvReac Type Severity Reaction Status Date / Time iodine Allergy Severe Anaphylactic Verified 01/08/24 08:36 Shock shellfish derived Allergy Severe Anaphylactic Verified 01/08/24 08:36 Shock Sulfa (Sulfonamide Allergy Intermediate Rash Verified 01/08/24 08:36 Antibiotics) adhesive tape Allergy Mild Rash Verified 01/08/24 08:36 benzalkonium chloride Allergy Mild Rash Verified 01/08/24 08:36 gramicidin D Allergy Mild Rash Verified 01/08/24 08:36 hydrocortisone Allergy Mild Rash Verified 01/08/24 08:36 neomycin Allergy Mild Rash Verified 01/08/24 08:36 polymyxin B Allergy Mild Rash Verified 01/08/24 08:36 simvastatin AdvReac Mild Rash Verified 01/08/24 08:36 SHELLFISH Allergy Severe Anaphylactic Uncoded 01/08/24 08:36 Shock BACITRACIN ZINC Allergy Mild Rash Uncoded 01/08/24 08:36 NEOMYCIN SULFATE Allergy Mild Rash Uncoded 01/08/24 08:36 POLYMYXIN B SULFATE Allergy Mild Rash Uncoded 01/08/24 08:36 [facility] Past Medical History Medical History Anxiety Anxiety and depression GERD (gastroesophageal reflux disease) Hx of migraines Hyperlipidemia Mood disorder Prediabetes Seizures Surgical History Surgical History H/O adenoidectomy H/O: hysterectomy (~2019) History of tonsillectomy Ingrown toenail Previous section x2 Social History Social History Smoking status: Current some day smoker Second hand tobacco smoke exposure: No Alcohol intake: never Substance use: never Substance use type: does not use Living arrangements: with family Gender identity (if verbalized by the patient): Female Spiritual care concerns: No Agree to blood products: Yes Exam Narrative: APPEARANCE: No apparent distress. Head: atraumatic. EYES: EOMI, NOSE: Atraumatic NECK: Trachea midline RESPIRATORY: No increased rate of breathing Clear to auscultation CARDIOVASCULAR: RRR, ABDOMINAL: Non-distended MUSCULOSKELETAl: focal exam of the foot showed some mild swelling tenderness over the 2nd and 3rd tarsal bones. NEURO: Alert. Cranial nerves 2-12 grossly intact. Sensation light touch, motor function cerebellar function intact for 4 extremities. Gait exam was normal. SKIN:: Warm, dry. Normal color PSYCHIATRIC: Normal affect Course Vital Signs Vital signs: Vital Signs Temperature 98.1 F 01/08/24 08:31 Pulse Rate 84 01/08/24 08:31 Respiratory Rate 20 01/08/24 08:31 Blood Pressure 135/97 H 01/08/24 08:31 Pulse Oximetry 96 01/08/24 08:31 Oxygen Delivery Room Air 01/08/24 08:31 Temperature 98.1 F 01/08/24 08:31 Pulse Rate 70 01/08/24 10:01 Respiratory Rate 18 01/08/24 10:01 Blood Pressure 135/78 01/08/24 10:01 Pulse Oximetry 97 01/08/24 10:01 Oxygen Delivery Room Air 01/08/24 08:31 Medical Decision Making MDM Narrative Medical decision making narrative: -Course: 38-year-old female presenting multiple complaints. Primarily migraine foot pain although this is the setting a very stressful situation home. Patient will be given a migraine cocktail. Her neurologic exam is normal. X-rays of her foot were without any findings. On re-evaluation the patient is feeling better. She will be discharged home to follow-up with her primary care physician. -DDX includes but is not limited to: Stress reaction, migraines, foot fracture, foot strain -Independent interpretation of studies: labs imaging reviewed -Interventions: Compazine, Benadryl, Toradol, Tylenol -Shared decision making / Disposition: discharge Vital Signs Vital Signs: Vital Signs Temperature 98.1 F 01/08/24 08:31 Pulse Rate 84 01/08/24 08:31 Respiratory Rate 20 01/08/24 08:31 Blood Pressure 135/97 H 01/08/24 08:31 Pulse Oximetry 96 01/08/24 08:31 Oxygen Delivery Room Air 01/08/24 08:31 Temperature 98.1 F 01/08/24 08:31 Pulse Rate 70 01/08/24 10:01 Respiratory Rate 18 01/08/24 10:01 Blood Pressure 135/78 01/08/24 10:01 Pulse Oximetry 97 01/08/24 10:01 Oxygen Delivery Room Air 01/08/24 08:31 Discharge Plan Discharge Clinical Impression: Stress reaction, Migraine, Acute foot pain Patient Disposition: Home, Self-Care Condition: Stable Instructions: Antibiotic Form, Acute Headache (DC), Metatarsalgia (DC) Additional Instructions: You were seen in the emergency department for headache and foot pain. Please take Motrin Tylenol for symptoms. Please follow-up your primary care physician for further management. You can return any time if you would like re-evaluation. Prescriptions: New acetaminophen 500 mg tablet 1,000 mg PO TID PRN (Reason: daniel) 7 Days Qty: 42 0RF ibuprofen 800 mg tablet 800 mg PO TID PRN (Reason: pain) 7 Days Qty: 21 0RF No Action fluoxetine 20 mg capsule 20 mg PO DAILY ondansetron 8 mg tablet,disintegrating 8 mg PO Q4-6H PRN (Reason: nausea and vomiting) Qty: 20 0RF atorvastatin 80 mg tablet 80 mg PO DAILY lisinopril 10 mg tablet 10 mg PO DAILY progesterone micronized 200 mg capsule 200 mg PO DAILY fluticasone furoate-vilanterol [Breo Ellipta] 100-25 mcg/dose blister with device See Rx Instructions .ROUTE .COMPLEX Rx Instructions: Rx benzonatate 200 mg capsule 200 mg PO TID PRN (Reason: cough) Qty: 30 0RF albuterol sulfate 90 mcg/actuation HFA aerosol inhaler See Rx Instructions .ROUTE .COMPLEX Qty: 18 10RF Dose Instruction: INHALE ONE PUFF BY MOUTH EVERY 4 HOURS NEEDED FOR SHORTNESS OF BREATH OR FOR WHEEZING Rx Instructions: INHALE ONE PUFF BY MOUTH EVERY 4 HOURS NEEDED FOR SHORTNESS OF BREATH OR FOR WHEEZING epinephrine 0.3 mg/0.3 mL auto-injector 0.3 mg IM ONCE Qty: 2 0RF Rx Instructions: as a single dose; may repeat once prazosin 1 mg capsule 1 mg PO BID Qty: 60 0RF ondansetron 4 mg tablet,disintegrating 4 mg PO Q8H PRN (Reason: nausea and vomiting) Qty: 14 0RF famotidine 10 mg tablet 10 mg PO BID Qty: 14 0RF cetirizine [Zyrtec] 10 mg tablet 10 mg PO DAILY Qty: 7 0RF Follow-up/Referrals: David,LACHO Edmonds [Primary Care Provider] - 3 Days (ED f/u)
== END 2024-01-08 11:05 | disposition home or self-care (01) ==
PROVIDERS: Emergency Provider Emergency Medicine; PCP Physician Assistant
DX: G43.909 Migraine, unspecified, not intractable, without status migrainosus (principal); M79.671 Pain in right foot; F43.9 Reaction to severe stress, unspecified; E78.5 Hyperlipidemia, unspecified; R73.03 Prediabetes; F41.9 Anxiety disorder, unspecified; F32.A Depression, unspecified; F39 Unspecified mood [affective] disorder; F17.200 Nicotine dependence, unspecified, uncomplicated; Z90.710 Acquired absence of both cervix and uterus
CPT/HCPCS: 71045; 73630; 96374; 96375; 99284; J0780; J1200; J1885

== ENCOUNTER 2024-02-05 16:46 | Emergency (ER) | payer MEDICARE, SELFPAY ==
--- NOTE | ~2024-02-05 | CT_ITS ---
EXAMINATION: CT cervical spine wo con DATE: 02/05/2024 20:16 INDICATION: Left neck pain radiating to the arm. TECHNIQUE: Computed tomography (CT) of the cervical spine was performed without intravenous contrast. Automated exposure control and iterative reconstruction technique were employed. The dose-length pro duct was 438.83 mGy-cm. COMPARISON: CT cervical spine 10/02/2005 FINDINGS: There is kyphosis of cervical spine. Vertebral body heights and intervertebral disc heights are normal. The following disc levels are specifically discussed: C2-C3: There is mild bilateral uncovertebral joint osteoarthritis. There is severe right and mild lef t facet joint osteoarthritis. There is mild right neural foraminal stenosis. There is no central arden l stenosis. C3-C4: There is mild right uncovertebral joint osteoarthritis. There is mild right and moderate left facet joint osteoarthritis. There is no neural foraminal stenosis. There is no central canal stenosis . C4-C5: There is no uncovertebral joint osteoarthritis. There is no facet joint osteoarthritis. There is no neural foraminal stenosis. There is no central canal stenosis. C5-C6: There is no uncovertebral joint osteoarthritis. There is no facet joint osteoarthritis. There is no neural foraminal stenosis. There is mild central canal stenosis. C6-C7: There is no uncovertebral joint osteoarthritis. There is mild right facet joint osteoarthritis . There is no neural foraminal stenosis. There is no central canal stenosis. C7-T1: There is no uncovertebral joint osteoarthritis. There is mild bilateral facet joint osteoarthr itis. There is no neural foraminal stenosis. There is no central canal stenosis. IMPRESSION: 1. Mild cervical spondylosis. Reviewed, dictated and finalized at location [facility]
[2024-02-05 16:47] VITALS: BP 149/74; PULSE 76; RESP 16; TEMP 36.4; O2SAT 100
--- NOTE | 2024-02-05 19:55 | ED_ITS ---
HPI - Extremity Injury (Upper) General Chief Complaint: Extremity Injury, Upper Stated Complaint: multiple complaints Time Seen by Provider: 02/05/24 19:14 Source: patient Mode of arrival: ambulatory Limitations: no limitations History of Present Illness HPI narrative: This is a 38 year old female that presents to the ER for neck pain. Ongoing over the last couple of months. Reports the pain radiates into her shoulder. She has been doing physical therapy without improvement yet. No recent injuries. Denies numbness or weakness. Related Data Home Medications ?Medication ?Instructions ?Recorded ?Confirmed ?Last Taken ?Type fluoxetine 20 mg capsule 20 mg PO DAILY 04/10/23 12/30/23 Unknown History atorvastatin 80 mg tablet 80 mg PO DAILY 12/30/23 12/30/23 Unknown History fluticasone furoate 100 See Rx Instructions .Route .COMPLEX 12/30/23 12/30/23 Unknown History mcg-vilanterol 25 mcg/dose inhalation powder (Breo Ellipta) lisinopril 10 mg tablet 10 mg PO DAILY 12/30/23 12/30/23 Unknown History progesterone micronized 200 mg 200 mg PO DAILY 12/30/23 12/30/23 Unknown History capsule Allergies Allergy/AdvReac Type Severity Reaction Status Date / Time iodine Allergy Severe Anaphylactic Verified 01/08/24 08:36 Shock shellfish derived Allergy Severe Anaphylactic Verified 01/08/24 08:36 Shock Sulfa (Sulfonamide Allergy Intermediate Rash Verified 01/08/24 08:36 Antibiotics) adhesive tape Allergy Mild Rash Verified 01/08/24 08:36 benzalkonium chloride Allergy Mild Rash Verified 01/08/24 08:36 gramicidin D Allergy Mild Rash Verified 01/08/24 08:36 hydrocortisone Allergy Mild Rash Verified 01/08/24 08:36 neomycin Allergy Mild Rash Verified 01/08/24 08:36 polymyxin B Allergy Mild Rash Verified 01/08/24 08:36 simvastatin AdvReac Mild Rash Verified 01/08/24 08:36 SHELLFISH Allergy Severe Anaphylactic Uncoded 01/08/24 08:36 Shock BACITRACIN ZINC Allergy Mild Rash Uncoded 01/08/24 08:36 NEOMYCIN SULFATE Allergy Mild Rash Uncoded 01/08/24 08:36 POLYMYXIN B SULFATE Allergy Mild Rash Uncoded 01/08/24 08:36 Review of Systems Review of Systems: CONSTITUTIONAL: Denies fever SKIN: Denies rash MUSCULOSKELETAL: Reports joint pain, and myalgia. NEUROLOGIC: Denies numbness, or weakness. All systems reviewed & are unremarkable except as noted in HPI and below PMFSH Past Medical History Medical History Anxiety Anxiety and depression GERD (gastroesophageal reflux disease) Hx of migraines Hyperlipidemia Mood disorder Prediabetes Seizures Surgical History Surgical History H/O adenoidectomy H/O: hysterectomy (~2019) History of tonsillectomy Ingrown toenail Previous section x2 Social History Social History Smoking status: Current some day smoker Second hand tobacco smoke exposure: No Alcohol intake: never Substance use: never Substance use type: does not use Living arrangements: with family Gender identity (if verbalized by the patient): Female Spiritual care concerns: No Agree to blood products: Yes Exam Narrative: GENERAL: Well-appearing, well-nourished, and in no acute distress. HEAD: Normocephalic, atraumatic. EYES: EOMI. ENT: Nares clear, no rhinorrhea or epistaxis. Mucous membranes moist. Oropharynx without tonsillar hypertrophy exudate or other lesions. Bilateral TMs pearly wade non-bulging NECK: Supple. No adenopathy or masses. CHEST: Clear to auscultation. No respiratory distress. No wheezes rales or rhonchi HEART: Regular rate and rhythm. No murmur heard. Normal peripheral pulses. EXTREMITIES: Normal range of motion. No edema. Strength equal in bilateral upper extremities (5/5) SKIN: Warm, dry, no rash. NEURO: No focal deficits. Alert and oriented x3. PSYCH: Normal mood and affect Course Course Emergency Course: patient updated on her workup and agrees with plan of care Vital Signs Vital signs: Vital Signs Temperature 97.6 F 02/05/24 16:47 Pulse Rate 76 02/05/24 16:47 Respiratory Rate 16 02/05/24 16:47 Blood Pressure 149/74 H 02/05/24 16:47 Pulse Oximetry 100 02/05/24 16:47 Oxygen Delivery Room Air 02/05/24 16:47 Temperature 97.6 F 02/05/24 16:47 Pulse Rate 76 12/19/24 16:47 Respiratory Rate 16 02/05/24 16:47 Blood Pressure 149/74 H 02/05/24 16:47 Pulse Oximetry 100 02/05/24 16:47 Oxygen Delivery Room Air 02/05/24 16:47 MDM - Extremity Injury (Upper) MDM Narrative Medical decision making narrative: Patient presents to the ER for left sided neck pain. Ongoing over the last couple of months. She is afebrile and nontoxic appearing. Patient is neurologically intact. No recent injuries or trauma. CT cervical spine shows mild cervical spondylosis. Patient updated on her workup and agrees with plan of care. She is to follow up with primary provider and continue physical therapy. She was given warnings to return to the ER Differential Diagnosis Differential diagnosis: Likely other (Muscle strain, degenerative disc disease, cervical radiculopathy) Imaging Data Radiologist's impression: ITS Impressions Cervical Spine CT 02/05/24 20:19 IMPRESSION: 1. Mild cervical spondylosis. Critical Care Time Critical Care Time Critical Care Time: No Discharge Plan Discharge Clinical Impression: Neck pain Patient Disposition: Home, Self-Care Condition: Stable Instructions: Neck Pain (ED) Additional Instructions: Return to the ER if you experience fever, redness and swelling of your arm, weakness, numbness, or any other symptoms that are concerning to you Rest, use ice/heat, take anti-inflammatories (Aleve, Ibuprofen, Naproxen, etc) or Tylenol as needed for pain as well as muscle relaxer (Flexeril) as needed for pain. Muscle relaxers can make you drowsy, do not drive if you take this Follow up with your primary care doctor Patient Language: Vietnamese Prescriptions: New cyclobenzaprine 10 mg tablet 10 mg PO TID PRN (Reason: muscle spasm) Qty: 14 0RF No Action fluoxetine 20 mg capsule 20 mg PO DAILY ondansetron 8 mg tablet,disintegrating 8 mg PO Q4-6H PRN (Reason: nausea and vomiting) Qty: 20 0RF atorvastatin 80 mg tablet 80 mg PO DAILY lisinopril 10 mg tablet 10 mg PO DAILY progesterone micronized 200 mg capsule 200 mg PO DAILY fluticasone furoate-vilanterol [Breo Ellipta] 100-25 mcg/dose blister with device See Rx Instructions .ROUTE .COMPLEX Rx Instructions: Rx benzonatate 200 mg capsule 200 mg PO TID PRN (Reason: cough) Qty: 30 0RF albuterol sulfate 90 mcg/actuation HFA aerosol inhaler See Rx Instructions .ROUTE .COMPLEX Qty: 18 10RF Dose Instruction: INHALE ONE PUFF BY MOUTH EVERY 4 HOURS NEEDED FOR SHORTNESS OF BREATH OR FOR WHEEZING Rx Instructions: INHALE ONE PUFF BY MOUTH EVERY 4 HOURS NEEDED FOR SHORTNESS OF BREATH OR FOR WHEEZING epinephrine 0.3 mg/0.3 mL auto-injector 0.3 mg IM ONCE Qty: 2 0RF Rx Instructions: as a single dose; may repeat once prazosin 1 mg capsule 1 mg PO BID Qty: 60 0RF ondansetron 4 mg tablet,disintegrating 4 mg PO Q8H PRN (Reason: nausea and vomiting) Qty: 14 0RF famotidine 10 mg tablet 10 mg PO BID Qty: 14 0RF cetirizine [Zyrtec] 10 mg tablet 10 mg PO DAILY Qty: 7 0RF acetaminophen 500 mg tablet 1,000 mg PO TID PRN (Reason: daniel) 7 Days Qty: 42 0RF ibuprofen 800 mg tablet 800 mg PO TID PRN (Reason: pain) 7 Days Qty: 21 0RF Follow-up/Referrals: David,LACHO Edmonds [Primary Care Provider] -
[2024-02-05] MEDS: KETOROLAC 30 MG/ML VIAL (*BKC) IM (20:56)
[2024-02-05] MEDS: diazePAM INJ (*CRX) 10 MG/2 ML SYRINGE 5 MG IM (20:56)
--- NOTE | 2024-02-05 21:24 | PC.NURSE ---
EDP made aware of pt hysterectomy in 2019. no urine or bedside test needed per EDP
[2024-02-05 21:45] VITALS: BP 141/85; PULSE 73; RESP 15; O2SAT 99
== END 2024-02-05 21:45 | disposition home or self-care (01) ==
PROVIDERS: Emergency Provider Physician Assistant; PCP Physician Assistant
DX: M54.2 Cervicalgia (principal); F41.8 Other specified anxiety disorders; K21.9 Gastro-esophageal reflux disease without esophagitis; E78.5 Hyperlipidemia, unspecified
CPT/HCPCS: 72125; 96372; 99284; J1885; J3360

== ENCOUNTER 2024-03-08 22:13 | Emergency (ER) | payer MEDICARE, SELFPAY ==
[2024-03-08 22:19] VITALS: BP 145/99; PULSE 87; RESP 18; TEMP 36.6; O2SAT 99
--- NOTE | 2024-03-08 23:59 | ED.GENADULT ---
HPI - General Adult General Chief complaint: Unspecified Stated complaint: pain in neck, shoulder, back, headache Time Seen by Provider: 03/08/24 23:27 Source: patient Mode of arrival: ambulatory Limitations: no limitations History of Present Illness HPI narrative: This is a 38-year-old female who presents to the ED for chief complaint of chronic neck pain x3 months. Patient states that she has been getting pain radiating from the left side of the neck into the left arm at times. Patient states this pain is unchanged but she is just seeking further help with definitive management. States that she has been going to physical therapy and has gained some range of motion of her left shoulder and neck, however the pain is still present. Denies numbness, weakness, fevers, chills, chest pain, shortness of breath. Related Data Home Medications ?Medication ?Instructions ?Recorded ?Confirmed ?Last Taken ?Type fluoxetine 20 mg capsule 20 mg PO DAILY 04/10/23 12/30/23 Unknown History atorvastatin 80 mg tablet 80 mg PO DAILY 12/30/23 12/30/23 Unknown History fluticasone furoate 100 See Rx Instructions .Route .COMPLEX 12/30/23 12/30/23 Unknown History mcg-vilanterol 25 mcg/dose inhalation powder (Breo Ellipta) lisinopril 10 mg tablet 10 mg PO DAILY 12/30/23 12/30/23 Unknown History progesterone micronized 200 mg 200 mg PO DAILY 12/30/23 12/30/23 Unknown History capsule Allergies Allergy/AdvReac Type Severity Reaction Status Date / Time iodine Allergy Severe Anaphylactic Verified 01/08/24 08:36 Shock shellfish derived Allergy Severe Anaphylactic Verified 01/08/24 08:36 Shock Sulfa (Sulfonamide Allergy Intermediate Rash Verified 01/08/24 08:36 Antibiotics) adhesive tape Allergy Mild Rash Verified 01/08/24 08:36 benzalkonium chloride Allergy Mild Rash Verified 01/08/24 08:36 gramicidin D Allergy Mild Rash Verified 01/08/24 08:36 hydrocortisone Allergy Mild Rash Verified 01/08/24 08:36 neomycin Allergy Mild Rash Verified 01/08/24 08:36 polymyxin B Allergy Mild Rash Verified 01/08/24 08:36 simvastatin AdvReac Mild Rash Verified 01/08/24 08:36 SHELLFISH Allergy Severe Anaphylactic Uncoded 01/08/24 08:36 Shock BACITRACIN ZINC Allergy Mild Rash Uncoded 01/08/24 08:36 NEOMYCIN SULFATE Allergy Mild Rash Uncoded 01/08/24 08:36 POLYMYXIN B SULFATE Allergy Mild Rash Uncoded 01/08/24 08:36 Review of Systems Review of Systems: All systems as dictated in [facility] Past Medical History Medical History Anxiety Anxiety and depression GERD (gastroesophageal reflux disease) Hx of migraines Hyperlipidemia Mood disorder Prediabetes Seizures Surgical History Surgical History H/O adenoidectomy H/O: hysterectomy (~2019) History of tonsillectomy Ingrown toenail Previous section x2 Social History Social History Smoking status: Current some day smoker Second hand tobacco smoke exposure: No Alcohol intake: never Substance use: never Substance use type: does not use Living arrangements: with family Gender identity (if verbalized by the patient): Female Spiritual care concerns: No Agree to blood products: Yes Exam Narrative: GENERAL: Well-appearing, well-nourished, and in no acute distress. HEAD: Normocephalic, atraumatic. EYES: PERRLA and EOMI. ENT: Nares clear, no rhinorrhea or epistaxis. Mucous membranes moist. Oropharynx without tonsillar hypertrophy exudate or other lesions. NECK: Supple. No adenopathy or masses. CHEST: No respiratory distress. Clear to auscultation. No wheezes rales or rhonchi HEART: Regular rate and rhythm. No murmur heard. Normal peripheral pulses. ABDOMEN: Soft, nontender, nondistended, normal active bowel sounds. MSK: Normal range of motion. No edema. SKIN: Warm, dry, no rash. NEURO: Alert and oriented x4. No focal deficits. PSYCH: Normal mood and affect. Course Vital Signs Vital signs: Vital Signs Temperature 97.8 F 03/08/24 22:19 Pulse Rate 87 03/08/24 22:19 Respiratory Rate 18 03/08/24 22:19 Blood Pressure 145/99 H 03/08/24 22:19 Pulse Oximetry 99 03/08/24 22:19 Oxygen Delivery Room Air 03/08/24 22:19 Temperature 97.8 F 03/08/24 22:19 Pulse Rate 87 03/08/24 22:19 Respiratory Rate 18 03/08/24 22:19 Blood Pressure 145/99 H 03/08/24 22:19 Pulse Oximetry 99 03/08/24 22:19 Oxygen Delivery Room Air 03/08/24 22:19 Medical Decision Making MDM Narrative Medical decision making narrative: This is a 38-year-old female who presents to the ED for chief complaint of chronic neck pain. Vitals are normal. Exam remarkable for the above. No neurologic deficits. No chest pain. This pain is very familiar to the patient. She seeking assistance with further definitive evaluation and management of this issue that she has been having for the past several months. Neuro surgical referral was given. Offered to treat the patient's pain here but she is declining. She is satisfied the referral today. Pt will be discharged in stable condition. Return precautions given and supportive measures discussed. Pt is understanding and agreeable with plan for discharge and follow-up with PCP/neurosurgery Vital Signs Vital Signs: Vital Signs Temperature 97.8 F 03/08/24 22:19 Pulse Rate 87 03/08/24 22:19 Respiratory Rate 18 03/08/24 22:19 Blood Pressure 145/99 H 03/08/24 22:19 Pulse Oximetry 99 03/08/24 22:19 Oxygen Delivery Room Air 03/08/24 22:19 Temperature 97.8 F 03/08/24 22:19 Pulse Rate 87 03/08/24 22:19 Respiratory Rate 18 03/08/24 22:19 Blood Pressure 145/99 H 03/08/24 22:19 Pulse Oximetry 99 03/08/24 22:19 Oxygen Delivery Room Air 03/08/24 22:19 Discharge Plan Discharge Clinical Impression: Chronic cervical pain Patient Disposition: Home, Self-Care Condition: Stable Instructions: Antibiotic Form Additional Instructions: Your seen in the ER today for your chronic cervical radiculopathy. Please see neuro surgery for definitive management of this issue. Continue taking your pain medications at home as prescribed. If you have any new or worsening symptoms please return to the ER for further evaluation. Patient Language: Tajik Prescriptions: No Action fluoxetine 20 mg capsule 20 mg PO DAILY ondansetron 8 mg tablet,disintegrating 8 mg PO Q4-6H PRN (Reason: nausea and vomiting) Qty: 20 0RF atorvastatin 80 mg tablet 80 mg PO DAILY lisinopril 10 mg tablet 10 mg PO DAILY progesterone micronized 200 mg capsule 200 mg PO DAILY fluticasone furoate-vilanterol [Breo Ellipta] 100-25 mcg/dose blister with device See Rx Instructions .ROUTE .COMPLEX Rx Instructions: Rx benzonatate 200 mg capsule 200 mg PO TID PRN (Reason: cough) Qty: 30 0RF albuterol sulfate 90 mcg/actuation HFA aerosol inhaler See Rx Instructions .ROUTE .COMPLEX Qty: 18 10RF Dose Instruction: INHALE ONE PUFF BY MOUTH EVERY 4 HOURS NEEDED FOR SHORTNESS OF BREATH OR FOR WHEEZING Rx Instructions: INHALE ONE PUFF BY MOUTH EVERY 4 HOURS NEEDED FOR SHORTNESS OF BREATH OR FOR WHEEZING epinephrine 0.3 mg/0.3 mL auto-injector 0.3 mg IM ONCE Qty: 2 0RF Rx Instructions: as a single dose; may repeat once prazosin 1 mg capsule 1 mg PO BID Qty: 60 0RF ondansetron 4 mg tablet,disintegrating 4 mg PO Q8H PRN (Reason: nausea and vomiting) Qty: 14 0RF cyclobenzaprine 10 mg tablet 10 mg PO TID PRN (Reason: muscle spasm) Qty: 14 0RF famotidine 10 mg tablet 10 mg PO BID Qty: 14 0RF cetirizine [Zyrtec] 10 mg tablet 10 mg PO DAILY Qty: 7 0RF acetaminophen 500 mg tablet 1,000 mg PO TID PRN (Reason: daniel) 7 Days Qty: 42 0RF ibuprofen 800 mg tablet 800 mg PO TID PRN (Reason: pain) 7 Days Qty: 21 0RF Follow-up/Referrals: David,LACHO Edmonds [Primary Care Provider] - Oliver Spring MD [Physician] - Time of Disposition: 00:03
--- OUTSIDE RECORDS SUMMARY | 2024-03-11 15:02 | XMS_ITS | Referral Summary ---
Author Organization [facility] Address [address] [place] [address] Care Team Providers Care Internal Investigator Name Role Phone Veronica Weber MD Primary Care Provider [phone] Source Comments [facility],non-owned Affiliates and Associated Physician Practices is amultiple site organization consisting of ambulatory clinics and hospital sitesin [place], [place], [place] and [place]. This disclosure is being madepursuant to the Care Everywhere program and may not contain all information available regarding this patient. Last updated 17.[facility] Allergies Active Allergy Reactions Criticality Noted Date Comments Povidone Iodine Anaphylaxis High 08/17/2019 Neomycin Rash Medium 08/17/2019 other [Other] Rash Medium 08/17/2019 Rubber but Latex is good Shellfish Allergy Anaphylaxis High 11/27/2023 Sulfa Drugs Rash Medium 08/17/2019 Medications * Be aware that medications may not be up to date on this document. Alwaysverify current medications with the patient. Medication Sig Dispensed Refills Start Date End Date Status lamoTRIgine (LAMICTAL) 100 MG tablet Take 100 mg by mouth 2 times daily Active FLUoxetine (PROZAC) 40 MG capsule Take 40 mg by mouth once daily Active traZODone (DESYREL) 150 MG tablet Take 150 mg by mouth at bedtime Active prazosin (MINIPRESS) 2 MG capsule Take 4 mg by mouth every evening Active topiramate (TOPAMAX) 50 MG tablet Take 50 mg by mouth 1 tab in am, 2 tabs in pm Active buPROPion XL 24hr (WELLBUTRIN-XL) 300 MG tablet Take 300 mg by mouth every evening Active propranolol (INDERAL) 10 MG tablet Take 10 mg by mouth 2 times daily Active lurasidone (LATUDA) 80 MG tablet Take 80 mg by mouth every evening Active clonazePAM (KLONOPIN) 1 MG tablet Take 1 mg by mouth 2 times daily as needed for Anxiety Active simvastatin (ZOCOR) 20 MG tablet Take 20 mg by mouth at bedtime Active multivitamin daily tablet Take 1 tablet by mouth daily with food Active Multiple Vitamins-Iron (STRESS B COMPLEX/IRON PO) Take 1 tablet by mouth once daily Active CETIRIZINE HCL PO Take 1 tablet by mouth once daily Active oxyCODONE, immediate release, (ROXICODONE) 5 MG tablet Take 1 tablet by mouth every 4 hours as needed 20 tablet 08/20/2019 Active EPINEPHrine (Epipen) 0.3 MG/0.3ML auto-injector pen Inject 0.3 mL into muscle once as needed for Anaphylaxis 0.6 mL 11/27/2023 Active Active Problems Problem Noted Date Diagnosed Date Dysmenorrhea 08/18/2019 Social History Tobacco Use Types Packs/Day Years Used Date Smoking Tobacco: Never Smokeless Tobacco: Never Alcohol Use Standard Drinks/Week Comments Yes 0 (1 standard drink = 0.6 oz pur e alcohol) rarely Sex and Gender Information Value Date Recorded Sex Assigned at Not on file Gender Identity Not on file Sexual Orientation Not on file Last Filed Vital Signs Vital Sign Reading Time Taken Comments Blood Pressure 116/75 11/27/2023 3:59 PM CDT Pulse 98 11/27/2023 1:35 PM CDT Temperature 36.9 ??C (98.4 ??F) 11/27/2023 1:35 PM CD T Respiratory Rate 18 11/27/2023 1:35 PM CDT Oxygen Saturation 96% 11/27/2023 3:59 PM CDT Inhaled Oxygen Concentration - - Weight 112.5 kg (248 lb) 08/18/2019 8:47 AM CDT Height 165.1 cm (5' 5 ) 08/18/2019 8:47 AM CDT Body Mass Index 41.27 08/18/2019 8:47 AM CDT Plan of Treatment Not on file Administered Medications Care Teams Internal Investigator Relationship Specialty Start Date End Date Veronica Weber MD [address] [place] [address] PCP - General Family Medicine 09/14/18
--- OUTSIDE RECORDS SUMMARY | 2024-03-11 15:02 | XMS_ITS | Patient Health Summary ---
Author Organization [facility] Address [address] [place] [address] Care Team Providers Care Technicians And Trades Workers Name Role Phone Veronica Weber MD Primary Care Provider [phone] Note from [facility],non-owned Affiliates and Associated Physician Practices is amultiple site organization consisting of ambulatory clinics and hospital sitesin [place], [place], [place] and [place]. This disclosure is being madepursuant to the Care Everywhere program and may not contain all information available regarding this patient. Last updated 17.[facility] Allergies * Povidone Iodine(Anaphylaxis) -High Criticality * Neomycin(Rash) -Medium Criticality * other [Other](Rash) -Medium Criticality * Shellfish Allergy(Anaphylaxis) -High Criticality * Sulfa Drugs(Rash) -Medium Criticality Medications * Be aware that medications may not be up to date on this document. Alwaysverify current medications with the patient. * lamoTRIgine (LAMICTAL) 100 MG tablet Take 100 mg by mouth 2 times daily * FLUoxetine (PROZAC) 40 MG capsule Take 40 mg by mouth once daily * traZODone (DESYREL) 150 MG tablet Take 150 mg by mouth at bedtime * prazosin (MINIPRESS) 2 MG capsule Take 4 mg by mouth every evening * topiramate (TOPAMAX) 50 MG tablet Take 50 mg by mouth 1 tab in am, 2 tabs in pm * buPROPion XL 24hr (WELLBUTRIN-XL) 300 MG tablet Take 300 mg by mouth every evening * propranolol (INDERAL) 10 MG tablet Take 10 mg by mouth 2 times daily * lurasidone (LATUDA) 80 MG tablet Take 80 mg by mouth every evening * clonazePAM (KLONOPIN) 1 MG tablet Take 1 mg by mouth 2 times daily as needed for Anxiety * simvastatin (ZOCOR) 20 MG tablet Take 20 mg by mouth at bedtime * multivitamin daily tablet Take 1 tablet by mouth daily with food * Multiple Vitamins-Iron (STRESS B COMPLEX/IRON PO) Take 1 tablet by mouth once daily * CETIRIZINE HCL PO Take 1 tablet by mouth once daily * oxyCODONE, immediate release, (ROXICODONE) 5 MG tablet(Started 08/20/2019) Take 1 tablet by mouth every 4 hours as needed * EPINEPHrine (Epipen) 0.3 MG/0.3ML auto-injector pen(Started 11/27/2023) Inject 0.3 mL into muscle once as needed for Anaphylaxis Active Problems Problem Noted Date Diagnosed Date [...] Mass Index 41.27 08/18/2019 8:47 AM CDT Procedures * MAGNESIUM BLOOD(Performed 11/27/2023) * COMPREHENSIVE METABOLIC PANEL(Performed 11/27/2023) * CBC W AUTO DIFFERENTIAL(Performed 11/27/2023) * SKIN TEST PPD - POINT OF CARE(Performed 11/03/2020) Performed for Encounter for PPD test * PATHOLOGY TISSUE EXAM (STL)(Performed 08/18/2019) Performed for Diagnosis unknown * MS TOTAL ABDOM HYSTERECTOMY(Performed 08/18/2019) Performed for R10.2, N94.5 * TYPE + SCREEN PANEL(Performed 08/18/2019) * BLOOD TYPE VERIFICATION(Performed 08/18/2019) * HCG URINE QUALITATIVE - POCT (IP) INTERFACED(Performed 08/18/2019) * HCG URINE QUAL POCT NOTIFICATION(Performed 08/18/2019) Performed for Dysmenorrhea * SARS-COV-2 (COVID-19) IN HOUSE(Performed 08/16/2019) Performed for Preop examination * US PELVIS W TRANSVAG NON OB(Performed 09/14/2018) Performed for Abdominal tenderness of left lower quadrant, rebound tenderness presence not specified * ALLERGEN LATEX IGE(Performed 02/05/2011) * LAB HISTORICAL RESULTS-ONBASE(Performed 02/05/2011) Results * CBC W AUTO DIFFERENTIAL (11/27/2023 2:52 PM CDT) WBC 6.7 4.0 - 10.7 x10E9/L 11/27/2023 3:09 PM [facility] RBC Count 4.95 3.90 - 5.20 x10E12/L 11/27/2023 3:09 PM [facility] Hemoglobin 14.3 11.9 - 15.8 g/dL 11/27/2023 3:09 PM [facility] Hematocrit 40.8 34.8 - 46.1 % 11/27/2023 3:09 PM [facility] MCV 82.4 80.0 - 98.0 fL 11/27/2023 3:09 PM [facility] MCH 28.9 26.7 - 33.6 pg 11/27/2023 3:09 PM [facility] MCHC 35.0 31.7 - 36.3 g/dL 11/27/2023 3:09 PM [facility] RDW-CV 12.6 11.3 - 14.8 % 11/27/2023 3:09 PM [facility] Platelet Count 199 150 - 420 x10E9/L 11/27/2023 3:09 PM [facility] MPV 10.0 7.8 - 11.4 fL 11/27/2023 3:09 PM [facility] Neutrophil % 67.7 41.0 - 74.0 % 11/27/2023 3:09 PM [facility] Lymphocyte % 25.9 17.0 - 47.0 % 11/27/2023 3:09 PM [facility] Monocyte % 5.3 3.0 - 11.0 % 11/27/2023 3:09 PM [facility] Eosinophil % 0.2 0.0 - 7.0 % 11/27/2023 3:09 PM [facility] Basophil % 0.6 0.0 - 1.6 % 11/27/2023 3:09 PM [facility] Immature Granulocytes % 0.3 0.0 - 1.0 % 11/27/2023 3:09 PM [facility] Neutrophil Absolute 4.51 1.60 - 7.50 x10E9/L 11/27/2023 3:09 PM [facility] Lymphocyte Absolute 1.72 1.00 - 4.40 x10E9/L 11/27/2023 3:09 PM [facility] Monocyte Absolute 0.35 0.15 - 1.00 x10E9/L 11/27/2023 3:09 PM [facility] Eosinophil Absolute 0.01 0.00 - 0.60 x10E9/L 11/27/2023 3:09 PM [facility] Basophil Absolute 0.04 0.00 - 0.13 x10E9/L 11/27/2023 3:09 PM [facility] Blood BLOOD SPECIMEN / Unknown Venipuncture / Unknown 11/27/2023 2:52 PM CDT 11/27/2023 2:58 PM CDT Silvino Dugan MD LAB - HEMATOLOGY ORD ERABLES [address] [address], [facility] [phone] * (ABNORMAL) COMPREHENSIVE METABOLIC PANEL (11/27/2023 2:52 PM CDT) [facility] BUN 14 7 - 26 mg/dL 11/27/2023 3:28 PM [facility] Creatinine 0.77 0.56 - 0.96 mg/dL 11/27/2023 3:28 PM [facility] Sodium 140 136 - 145 mmol/L 11/27/2023 3:28 PM [facility] Potassium 3.4(L) 3.5 - 4.5 mmol/L 11/27/2023 3:28 PM [facility] Chloride 103 98 - 107 mmol/L 11/27/2023 3:28 PM [facility] CO2 24 22 - 29 mmol/L 11/27/2023 3:28 PM [facility] Glucose 116(H) 70 - 115 mg/dL 11/27/2023 3:28 PM [facility] Calcium 9.7 8.4 - 10.2 mg/dL 11/27/2023 3:28 PM [facility] Protein Total 7.3 6.0 - 8.3 g/dL 11/27/2023 3:28 PM [facility] Albumin 4.4 3.4 - 5.0 g/dL 11/27/2023 3:28 PM [facility] Bilirubin Total 0.3 0.2 - 1.2 mg/dL 11/27/2023 3:28 PM [facility] Alkaline Phosphatase 75 40 - 150 U/L 11/27/2023 3:28 PM [facility] ALT 12 5 - 55 U/L 11/27/2023 3:28 PM [facility] AST 14 5 - 34 U/L 11/27/2023 3:28 PM [facility] Anion Gap 13 6 - 16 11/27/2023 3:28 PM [facility] BUN/Creatinine Ratio 18 7 - 23 11/27/2023 3:28 PM [facility] Osmolality Calculated 291 275 - 295 mOsm/kg 11/27/2023 3:28 PM [facility] Albumin/Globulin Ratio 1.5 1.1 - 2.3 11/27/2023 3:28 PM [facility] eGFR by CKD-EPI >90 >=90 mL/min/1.7 3 m2 11/27/2023 3:28 PM CDT [facility] Blood BLOOD SPECIMEN / Unknown Venipuncture / Unknown 11/27/2023 2:52 PM CDT 11/27/2023 2:58 PM CDT Silvino Dugan MD LAB - CHEMISTRY CARISSA MARTINEZ Performing Organization Address [facility]/ZIP Co de Phone Number [facility] [address] [place] [id number], [facility] [phone] * MAGNESIUM BLOOD (11/27/2023 2:52 PM CDT) Magnesium 1.9 1.6 - 2.6 mg/dL 11/27/2023 3:28 PM CDT [facility] Blood BLOOD SPECIMEN / Unknown Venipuncture / Unknown 11/27/2023 2:52 PM CDT 11/27/2023 2:58 PM CDT Silvino Dugan MD LAB - CHEMISTRY CARISSA MARTINEZ Performing Organization Address [facility]/ZIP Co de Phone Number [address] [address], [facility] [phone] * SKIN TEST PPD - POINT OF CARE (11/03/2020 10:03 AM CDT) PPD 0 [facility] Other MISCELLANEOUS SAMPLE S / Unknown 11/03/2020 10:03 AM CDT Serene Stone APRN-MULTIMEDIA ARTIST LAB - POINT OF CA RE ORDERABLES Performing Organization Address [facility]/ZIP Co de Phone Number [facility] [address] [phone] * GROSS + MICRO EXAM (STL) (08/18/2019 11:15 AM CDT) Case Report Surgical Pathology Report ? Case: [id number] ? Authorizing Provider: ??Jose Andrea MD ?Collected: ? 08/18/2019 11:32 AM ? Ordering Location: ? [facility] ? Received: ?08/18/2019 02:19 PM ? Pathologist: ? Tran Abraham MD ? Specimens: ?? A) - Uterus w BSO, UTERUS and cervix ? B) - Fallopian Tube, LEFT FALLOPIAN ??AND OVARY ? C) - Fallopian Tube, RIGHT FALLOPIAN TUBE AND OVARY ? 08/19/2019 3:19 PM T [facility] Final Diagnosis Uterus, cervix, hysterectomy: - No histopathologic abnormality Uterus, endometrium, hysterectomy: - Proliferative endometrium Uterus, myometrium, hysterectomy: - No histopathologic abnormality Ovary and fallopian tube, left, salpingo-oophorectomy : - Cystic follicles - Fallopian tube with no histopathologic abnormality Ovary and fallopian tube, right, salpingo-oophorectomy : - Cystic follicles - Fallopian tube with no histopathologic abnormality KL/ns 08/19/2019 3:19 PM [facility] Gross Description Received are three formalin-filled containers, each labeled with the patient's name, Sharona Goldstein. Specimen A is further labeled uterus and cervix. It consists of cervix and uterus fragments, each measuring 4.0 x 3.0 x 2.5 cm cervix, and 7.0 x 7.0 x 3.5 cm uterus. The cervix displays a slit-like OS. The cervix is opened, revealing a cervical canal measuring 3.8 cm in length and 0.8 cm in diameter, that is filled with mucusy material and multiple cystic spaces. The uterus is bi-halved, revealing a triangular-shaped endometrial cavity measuring 3.5 x 2.0 cm. The endometrial surface is smooth and glistening with no significant protrusions. The myometrium displays trabeculated cut surface with a thickness ranging from 1.5 to 2.4 cm. The serosa is patten, glistening. Serial sectioning of the uterus reveals no significant gross abnormalities. Forex Trader sections are submitted per cassette summary: A1 and A2 - cervix A3 and A4 - full thickness uterus, one side A5 and A6 - full thickness uterus, the other side Specimen B is further labeled fallopian tube, left. It consists of one resectioned fallopian tube and ovary, together measuring 5.0 x 4.0 x 0.8 cm. The fallopian tube measures 4.0 cm in length with a diameter of approximately 0.5 cm. the left ovary measures 4.0 x 2.0 x 1.0 cm. The fallopian tube is sectioned, revealing pinpoint lumen. The ovary is sectioned, revealing multiple small cystic cut surfaces. Forex Trader sections are submitted in cassette B1. Specimen C is further labeled right fallopian tube. It consists of resectioned fallopian tube and ovary measuring 6.0 x 4.5 x 1.5 cm. The fallopian tube measures 5.0 cm in length with a diameter ranging from 0.2 to 0.8 cm. The ovary measures 4.0 x 2.0 x 1.0 cm. The fallopian tube is sectioned, revealing pinpoint lumen. The ovary reveals multiple cystic structures with the largest measuring approximately 0.7 cm in diameter with a smooth lining. Forex Trader sections are submitted in cassette C1. JAILYN/daniel 08/19/2019 3:19 PM T [facility] Microscopic Description Histologic sections of the cervix show no specific histopathologic abnormality. There is no evidence of dysplasia or malignancy. The endometrium is proliferative without evidence of hyperplasia or malignancy. The myometrium shows no specific histopathologic abnormality. Histologic sections of the left ovary show numerous cystic follicles. The left fallopian tube shows no specific histopathologic abnormality. There is no evidence of malignancy. Histologic sections of the right ovary show numerous cystic follicles. The right fallopian tube shows no specific histopathologic abnormality. There is no evidence of malignancy. KL/ns 08/19/2019 3:19 PM T [facility] Disclaimer All histochemical and/or immunohistochemical results are interpreted with controls that demonstrate appropriate staining reactions before reporting results. Note on use of immunocytochemistry reagents: This test was developed and its performance characteristic determined by [facility], Department of Laboratory Medicine. It has not been cleared or approved by the U.S. Food and Drug Administration (FDA). The FDA has determined that such clearance or approval is not necessary. The test is used for clinical purpose. It should not be regarded as investigational or for research. This laboratory is certified to perform high complexity testing. The performance characteristics of the IHC/HALIMA assays have been validated on formalin-fixed paraffin embedded tissues only. The assays have not been validated on decalcified tissues. Results should be interpreted with caution. 08/19/2019 3:19 PM CDT [facility] Embedded Images 08/19/2019 3:19 PM T [facility] Pathology/Cytology HYSTERECTOMY AND BILATERAL SALPINGO-OOPHORECTO MY SPECIMEN / Unknown 08/18/2019 11:15 AM CDT 08/18/2019 2:19 PM CDT Comment:Pre-op diagnosis: R10.2 N94.5 Miscellaneous samples (specimen) FALLOPIAN TUBE PART / Unknown 08/18/2019 11:32 AM CDT 08/18/2019 2:19 PM CDT Comment:Pre-op diagnosis: R10.2 N94.5 Miscellaneous samples (specimen) FALLOPIAN TUBE PART / Unknown 08/18/2019 11:42 AM CDT 08/18/2019 2:19 PM CDT Comment:Pre-op diagnosis: R10.2 N94.5 Joes Andrea MD LAB - PATHOLOGY/CY TOLOGY ORDERABLES [facility] [address] [address] * TYPE + SCREEN PANEL (08/18/2019 9:08 AM CDT) ABO Rh A POS 08/18/2019 10:09 AM CDT [facility] Antibody Screen NEG 0 10:09 AM CDT [facility] Blood Bank BLOOD SPECIMEN / Unknown Venipuncture / Unknown 08/18/2019 9:08 AM CDT 08/18/2019 9:15 AM CDT Jose Andrea MD LAB - BLOOD BANK O RDERABLES [facility] [address] [address], [facility] [phone] * BLOOD TYPE VERIFICATION (08/18/2019 8:57 AM CDT) ABO Rh A POS 08/18/2019 10:10 AM CDT [facility] Blood Bank BLOOD SPECIMEN / Unknown Lab Venipuncture / Unknown 08/18/2019 8:57 AM CDT 08/18/2019 9:18 AM CDT Jose Andrea MD LAB - BLOOD BANK O RDERABLES [facility] B[facility] [address] [place] [address], [facility] [phone] * HCG URINE QUALITATIVE - POCT (IP) INTERFACED (08/18/2019 8:34 AM CDT) HCG Qual Urine Negative Negative 08/18/2019 8:40 AM CDT [facility] Urine URINE / Unknown 08/18/2019 8 :34 AM CDT 08/18/2019 8:40 AM CDT Jose Andrea MD LAB - POINT OF CAR E ORDERABLES [facility] [address] [address] * HCG URINE QUAL POCT NOTIFICATION (08/18/2019 8:23 AM CDT) Comment Notification Label Only - See Separate Report 08/18/2019 9:30 AM CDT [facility] Urine URINE / Unknown 08/18/2019 8 :23 AM CDT 08/18/2019 8:24 AM CDT Jose Andrea MD LAB - URINALYSIS O RDERABLES [facility] [address] [address] * SARS-COV-2 (COVID-19) IN HOUSE (08/16/2019 8:11 AM CDT) COVID-19 PCR Not detected Not detected, Invalid 08/16/2019 6:[address] [facility] Microbiology SPECIMEN FROM NASOPHARYNGEAL STRUCTURE / Unknown Collection / Unknown 08/16/2019 8:11 AM CDT 08/16/2019 9:10 AM CDT Narrative [facility] - 08/16/2019 6:46 PM CDT This nucleic acid amplification assay performance was validated by [facility]. This test has been authorized by the Food and Drug administration (FDA)under an Emergency??Use Authorization (EUA). This test has been validated in accordance with the FDA's guidance document Policy for Diagnostic Testing in Laboratories Certified to perform High Complexity Testing under CLIA prior to Emergency Use Authorization for Coronavirus Disease-2019 during the Public Health Emergency issued on April 17, 2019. FDA independent review of this validation is pending. This test is only authorized for the duration of time the declaration that circumstances exist justifying the authorization of emergency use of in vitro diagnostic tests for detection of SARS-CoV-2 virus and/or diagnosis of COVID-19 infection under section 564(b)(1) of the Act, 21 U.S.C 360bbb-3 (b)(1), unless the authorization is terminated or revoked sooner. Jose Andrea MD LAB - MICROBIOLOGY ORDERABLES [facility] [address] [place] [address], [facility] [phone] * US PELVIS WITH TRANSVAG NON OB (09/14/2018 3:08 PM CDT) Anatomical Region Laterality Modality Pelvis Ultrasound 09/14/2018 3:23 PM CDT Impressions 09/14/2018 3:25 PM CDT Nonvisualization of the left ovary Normal uterus and right ovary Reading Radiologist: Gayla Barahona MD on 09/14/2018 at 3:25 PM Narrative 09/14/2018 3:25 PM CDT Ultrasound Pelvis INDICATION: Left lower quadrant pain Technique: Grayscale, color, and Doppler images of the pelvis were obtained with spectral analysis of the ovaries to exclude torsion. Transabdominal and transvaginal views were obtained. Findings: The uterus is anteverted measuring 9.3 x 3.1 x 5.4 cm. It is normal in appearance. Nabothian cysts are present. The endometrium is homogeneous measuring 6 mm. Right ovary measures 3.8 x 1.7 x 1.2 cm. It is normal in appearance with normal arterial and venous flow. Left ovary was not visualized. No adnexal mass was seen. No free fluid Procedure Note Gayla Barahona MD - 09/14/2018 Ultrasound Pelvis INDICATION: Left lower quadrant pain Technique: Grayscale, color, and Doppler images of the pelvis were obtained with spectral analysis of the ovaries to exclude torsion. Transabdominal and transvaginal views were obtained. Findings: The uterus is anteverted measuring 9.3 x 3.1 x 5.4 cm. It is normal in appearance. Nabothian cysts are present. The endometrium is homogeneous measuring 6 mm. Right ovary measures 3.8 x 1.7 x 1.2 cm. It is normal in appearance with normal arterial and venous flow. Left ovary was not visualized. No adnexal mass was seen. No free fluid IMPRESSION Nonvisualization of the left ovary Normal uterus and right ovary Reading Radiologist: Gayla Barahona MD on 09/14/2018 at 3:25 PM Jose Andrea MD ORDERABLES * ALLERGEN LATEX IGE (02/05/2011 11:26 AM B[facility] TURNER) Class Description [facility] ([place]) Comment: ?Levels of Specific IgE ? Class ??Description of Class ?----- ?<0.08 ? 0 ? Negative ? 0.08 - ?0.15 ? I ? 0.16 - ?0.50 ? II ?Increasing ? 0.51 - ?2.50 ? III ? levels ? 2.51 - ?? 12.50 ? IV ?of ?12.51 - ?? 62.50 ? V ?Specific IgE ?62.51 - >100.00 ? Antibody Latex <0.08 Class 0 kU/L [facility] ([place] 02/05/2011 11:2 6 AM BOX TURNER 02/05/2011 6:02 PM B[facility] TURNER Narrative [facility] ([place]) - 02/08/2011 3:36 PM B[facility] TURNER Preferred Lab:->[facility] Performed at: ??01 - [facility] [address] ??[id number] Line Fisher: Tramaine Dunne MD, Phone: ??[phone] Erika Ayon MD LAB - CHEMISTRY OR DERABLES Performing Organization Address City/[facility]/ZIP Co de Phone Number [facility] ([place] * LAB HISTORICAL RESULTS-ONBASE (02/05/2011) 02/05/2011 Historical Provider LAB - CHEMISTRY O RDERABLES [facility] Care Teams Technicians And Trades Workers Relationship Specialty Start Date End Date Veronica Weber MD [address] [place] [address] PCP - General Family Medicine 09/14/18
--- OUTSIDE RECORDS SUMMARY | 2024-03-11 15:02 | XMS_ITS | Clinical Summary ---
Author Organization [facility] Address [address] [place] [address] Care Team Providers Care Faro Dealer Name Role Phone Veronica Weber MD Primary Care Provider [phone] Source Comments [facility],non-owned Affiliates and Associated Physician Practices is amultiple site organization consisting of ambulatory clinics and hospital sitesin [place], [place], [place] and [place]. This disclosure is being madepursuant to the Care Everywhere program and may not contain all information available regarding this patient. Last updated 17.[facility] Allergies Active Allergy Reactions Criticality Noted Date [...] 08/18/2019 8:47 AM CDT Plan of Treatment Health Maintenance Due Date Last Done Comments HIV SCREENING 07/18/1999 HEPATITIS C SCREENING 07/13/2002 DTAP/TDAP/TD VACCINES (1 - Tdap) 07/18/2003 HEPATITIS B VACCINE (1 of 3 - 19+ 3-dose series) 07/18/2003 COVID-19 VACCINE ( season) 2023 06/20/2020, 05/30/2020 INFLUENZA VACCINE (#1) 2023 0, 12/31/2018, 04/09/2017, Additional history exists DEPRESSION SCREENING 02/18/2024 MEDICARE AWV ? CALENDAR YEAR 2024 PAP SMEAR 06/10/2026 06/11/2023 ZOSTER VACCINE (1 of 2) 2034 HIB VACCINE Aged Out No longer eligi ble based on patient's age to complete this topic HPV VACCINE Aged Out No longer eligi ble based on patient's age to complete this topic MENINGOCOCCAL (Group B) VACCINE Aged Out No longer eligible based on patient's age to complete this topic MENINGOCOCCAL VACCINE Aged Out No мария garett eligible based on patient's age to complete this topic PNEUMOCOCCAL VACCINE Aged Out No long er eligible based on patient's age to complete this topic Care Teams Faro Dealer Relationship Specialty Start Date End Date Veronica Weber MD [address] [place] [address] PCP - General Family Medicine 09/14/18
--- OUTSIDE RECORDS SUMMARY | 2024-03-11 15:02 | XMS_ITS | Encounter Summary ---
Author Organization Address [address] [place] [address] Care Team Providers Care Back Tender Paper Machine Name Role Phone Veronica Weber MD Primary Care Provider [phone] Reason for Visit * Reason Comments Medication Refill Encounter Details Date Type Department Care Team (Late st Contact Info) Description 04/11/2019 Refill [facility] [address] [place] [address] Clint [place] NP NO ADDRESS ON FILE Bipolar disorder with moderate depression (CMS/HCC) Social History Tobacco Use Types Packs/Day Years Used Date Smoking Tobacco: Never Smokeless Tobacco: Never Alcohol Use Standard Drinks/Week Comments Not Currently 0 (1 standard drink = 0.6 oz pur e alcohol) Comments No Sex and Gender Information Value Date Recorded Sex Assigned at Not on file Legal Sex Female 3:52 AM DIRECTOR OF DISTRICT OFFICE Gender Identity Not on file Sexual Orientation Not on file 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
--- OUTSIDE RECORDS SUMMARY | 2024-03-11 15:02 | XMS_ITS | Clinical Summary ---
Author Organization [employer] [id number] [facility] Address [address] [place] [address] Care Team Providers Care Drafting Instructor Name Role Phone Veronica Wbeer MD Primary Care Provider [phone] Allergies Active Allergy Reactions Criticality Noted Date Comments Adhesive Rash Low 11/28/2017 Iodine Anaphylaxis High 11/25/2017 Neomycin Rash Medium 11/25/2017 Perfume Other (See Comments) 03/12/2019 fragnances in soaps causes rashes and sneezes Povidone-Iodine Anaphylaxis High 08/17/2019 Rubber, Unspecified Rash Low 09/17/2021 Shellfish Containing Products Anaphylaxis High 11/25/2017 Sulfa (Sulfonamide Antibiotics) Rash Low 11/25/2017 Medications cetirizine (ZyrTEC) 10 mg tablet Take 10 mg by mouth daily. Active multivitamin (DAILY-KASSIDY) tablet Take 1 Tablet by mouth daily. Active albuterol HFA 90 mcg inhaler Take 2 Puffs by inhalation every 6 hours as needed for Shortness of Breath. Active fluticasone propionate (FLONASE) 50 mcg/spray [place], Suspension nasal inhaler Administer 50 mcg in each nostril Continuous as needed. 05/02/19 22 Active EPINEPHrine (EPIPEN) 0.3 mg/0.3 mL Auto-Injector INJECT 0.3MG(0.3ML) INTRAMUSCULARLY DIRECTED NEEDED FOR ALLERGIC REACTION. MAY REPEAT ONCE. 04/19/19 Active benzonatate (TESSALON) 200 mg capsule TAKE 1 CAPSULE BY MOUTH THREE TIMES DAILY FOR 10 DAYS NEEDED FOR COUGH 11/02/19 Active rosuvastatin (CRESTOR) 20 mg tablet Take 20 mg by mouth daily. Active propranoloL (INDERAL) 10 mg tablet Take 10 mg by mouth. 12/08/19 Active estradioL (ESTRACE) 1 mg tablet Take 1 mg by mouth daily. 12/08/19 Active cariprazine (VRAYLAR) 4.5 mg Capsule capsule Take 1 Capsule (4.5 mg) by mouth daily. 90 Capsule 12/25/19 Active prazosin (MINIPRESS) 1 mg capsule Take 1 Capsule (1 mg) by mouth 2 times daily. 180 Capsule 12/25/19 Active topiramate (TOPAMAX) 50 mg tablet Take 1 Tablet (50 mg) by mouth daily in the morning AND 2 Tablets (100 mg) daily at bedtime. 270 Tablet 12/25/19 Active traZODone (DESYREL) 100 mg tablet Take 1 Tablet (100 mg) by mouth daily at bedtime. 90 Tablet 12/25/19 Active lithium carbonate 450 mg Controlled Release tablet Take 1 Tablet (450 mg) by mouth 2 times daily. 30 Tablet 1 03/18/19 Active Active Problems Problem Noted Date Diagnosed Date Weight gain due to medication 11/05/2021 Bilateral plantar fasciitis 05/22/2021 Insomnia 03/29/2019 PTSD (post-traumatic stress disorder) 04/16/2018 Bipolar disorder, in full re mission, most recent episode depressed 05/09/2016 ANUJ on CPAP Back pain Morbid obesity with BMI of 50.0-59.9, adult Resolved Problems Problem Noted Date Diagnosed Date Resolved Date STD (female) 03/09/2021 Suicidal ideation 05/20/2019 Family History Medical History Relation Name Comments Diabetes Father Relation Name Status Comments Brother Alive Daughter 1 Alive Daughter 2 Alive Father Alive Maternal Grandfather Maternal Grandmother Alive Mother Alive Paternal Grandfather Paternal Grandmother Sister Alive Son Alive Social History Tobacco Use Types Packs/Day Years Used Date Smoking Tobacco: Some Days Smokeless Tobacco: Never Tobacco Cessation:Ready to Q uit: Not Asked; Counseling Given: Not Answered Alcohol Use Standard Drinks/Week Comments Not Currently 0 (1 standard drink = 0.6 oz pur e alcohol) Rarely Comments No Sex and Gender Information Value Date Recorded Sex Assigned at Not on file Legal Sex Female 3:52 AM FRONT DESK MONITOR Gender Identity Not on file Sexual Orientation Not on file 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 Not on file Not on file Not on file Last Filed Vital Signs Vital Sign Reading Time Taken Comments Blood Pressure 122/72 12/24/2021 9:09 AM FRONT DESK MONITOR Pulse 75 12/24/2021 9:09 AM FRONT DESK MONITOR Temperature 36.1 ??C (97 ??F) 06/09/2019 1:10 PM CDT Respiratory Rate 18 12/24/2021 9:09 AM FRONT DESK MONITOR Oxygen Saturation 99% 12/24/2021 9:09 AM FRONT DESK MONITOR Inhaled Oxygen Concentration - - Weight 110.3 kg (243 lb 3.2 oz) 12/24/2021 9:09 AM FRONT DESK MONITOR Height 162.6 cm (5' 4 ) 12/24/2021 9:09 AM FRONT DESK MONITOR Body Mass Index 41.75 12/24/2021 9:09 AM FRONT DESK MONITOR Plan of Treatment Health Maintenance Due Date Last Done Comments PNEUMOCOCCAL VACCINE 0-64 YEARS (1 of 2 - PCV) 1990 HEPATITIS B VACCINES (1 of 3 - 19+ 3-dose series) 07/18/2003 CERVICAL CANCER SCREENING 2014 INFLUENZA VACCINE (#1) 2023 0, 12/31/2018, 04/09/2017, Additional history exists Pre-Diabetes and Diabetes Screening 03/25/2025 03/25/2022 DTAP/TDAP/TD VACCINES (3 - Td or Tdap) 07/05/2025 07/06/2015, 09/11/2009 HPV VACCINES Aged Out No longer eligi ble based on patient's age to complete this topic Procedures Procedure Name Priority Date/Time Associated Diagnosis Comments HEMOGLOBIN A1C Routine 03/25/2022 1:36 PM FRONT DESK MONITOR from Last 3 Months or Most Recently Relevant to Health Maintenance Results * HEMOGLOBIN A1C (03/25/2022 1:36 PM FRONT DESK MONITOR) HEMOGLOBIN A1C 5.4 <5.7 % of total Hgb [employer] Comment: For the purpose of screening for the presence of diabetes: <5.7% ? Consistent with the absence of diabetes 5.7-6.4% ?Consistent with increased risk for diabetes ?(prediabetes) > or =6.5% ??Consistent with diabetes This assay result is consistent with a decreased risk of diabetes. Currently, no consensus exists regarding use of hemoglobin A1c for diagnosis of diabetes in children. According to [place] Diabetes Association (ADA) guidelines, hemoglobin A1c <7.0% represents optimal control in non- diabetic patients. Different metrics may apply to specific patient populations. Standards of Medical Care in Diabetes(ADA). ?? ESTIMATED AVERAGE GLUCOSE (MG/DL) 108 mg/dL [employer] ESTIMATED AVERAGE GLUCOSE (MMOL/L) 6.0 mmol/L [employer] Comment: FASTING:NO FASTING: NO Test Performed at: [facility] [place] [address] [address] [place] ??[phone] Diane Crowe 03/25/2022 1:36 PM FRONT DESK MONITOR 03/25/2022 1:37 PM FRONT DESK MONITOR us Crista Elena MD CHEMISTRY ORDERABLES Final Re sult [facility] [phone] [facility] [place] [address] [address] [place] [phone] from Last 3 Months or Most Recently Relevant to Health Maintenance Insurance MEDICAID [place] [employer] MEDICAID [place] Advance Directives For more information, please contact: [phone] * Full Code (Latest Code Status on File) Date Activated Date Inactivated Comments 06/09/2019 12:45 PM 06/10/2019 10:59 AM * Full Code Date Activated Date Inactivated Comments 06/09/2019 11:35 AM 06/09/2019 12:45 PM * Full Code Date Activated Date Inactivated Comments 03/16/2019 8:40 AM 03/16/2019 3:42 PM * Full Code Date Activated Date Inactivated Comments 03/25/2018 12:06 AM 03/31/2018 8:46 PM Care Teams Drafting Instructor Relationship Specialty Start Date End Date Veronica Weber MD [address] [place] [id number] PCP - General 10/13/17
--- OUTSIDE RECORDS SUMMARY | 2024-03-11 15:02 | XMS_ITS | Encounter Summary ---
Author Organization [facility] Address [address] [place] [address] Care Team Providers Care Emissions Repair Technician Name Role Phone Veronica Weber MD Primary Care Provider [phone] Encounter Details Date Type Department Care Team (Late st Contact Info) Description 04/05/2004 Outpatient Historical [facility] MRI DEPT Mega Ram MD [address] [address] OTOSCLEROSIS NOS (Primary Dx) Social History Tobacco Use Types Packs/Day Years Used Date Smoking Tobacco: Never Assessed Comments Unknown Sex and Gender Information Value Date Recorded Sex Assigned at Not on file Legal Sex Female 3:52 AM CONTENT DESIGNER Gender Identity Not on file Sexual Orientation Not on file documented as of this encounter Plan of Treatment Not on file documented as of this encounter Visit Diagnoses Diagnosis Otosclerosis, unspecified- Primary documented in this encounter Care Teams Emissions Repair Technician Relationship Specialty Start Date End Date Veronica Weber MD [address] [place] [phone] PCP - General 10/13/17 documented as of this encounter
--- OUTSIDE RECORDS SUMMARY | 2024-03-11 15:02 | XMS_ITS | Continuity of Care Document ---
Author Organization [facility] Address [address] [place] [address] Phone Care Team Providers Care Wildfire Prevention Specialist Name Role Phone Isaura Hall MD Unavailable Unavailable Allergies, Adverse Reactions, Alerts Substance Reaction Status Criticality Sulfa (Sulfonamide Antibiotics) Active No Information Medications Medication Instructions Dosage Effective Dates (start - stop) Status Comments Breo Ellipta 100 mcg-25 mcg/dose powder for inhalation inhale 1 puff by inhalation route every day at the same time each day 1.00 puff - Active progesterone micronized 200 mg capsule TAKE 1 CAPSULE BY MOUTH EVERY DAY - Active hydroxyzine HCl 10 mg tablet take as directed - Active lisinopril 10 mg tablet take as directed - Active atorvastatin 80 mg tablet take as directed - Active ondansetron 8 mg disintegrating tablet DISSOLVE 1 TABLET ON THE TONGUE EVERY 4 TO 6 HOURS NEEDED FOR NAUSEA OR VOMITING - Active EpiPen 0.3 mg/0.3 mL injection, auto-injector inject 0.3 milliliter by intramuscular route once as needed for anaphylaxis 0.3 MG - Active cetirizine 10 mg tablet take 1 tablet by oral route 2 times every day 10 MG - Active albuterol sulfate HFA 90 mcg/actuation aerosol inhaler inhale 2 puff by Inhalation route every 4 - 6 hours as needed 2 puff - Active Procedures Procedure Date Flow Volume Loop Health Risk Assesment Patient Focused Oc New (Level 4) OFFICE/OUTPATIENT VISIT Oc Advance Directives Directive Yes / No Effective Date File Name No Information Encounters Encounter Description Practice Location Reason(s) For Visit Diagnoses Date Provider Providers Copied on Encounter [facility], [address] [place] [address] , [place], [place], [id number], tel:[phone] [facility] No Information [address] Isabel Ches[address]. [address], [place], [address], [place]. tel:[phone] Referring Provider: Krish Henry, [address] [place] [address] , [place], [place], [facility]. tel:[phone] New (Level 4) OFFICE/OUTPA TIENT VISIT [facility], [address] [place] [address] , [place], [place], [id number], tel:[phone] [facility] allergies and asthma (chief complaint) Body mass index (BMI) 40.0-44.9, adultOther allergic rhinitisModerate persistent asthmaOther adverse food reaction, initial encounterObstruc tive sleep apnea (adult) (pediatric)Conta ct dermatitis due to other agentAnaphylacti c reaction due to crustacean, initial encounter [address] Isabel Ches[address]. [address], [place], [address], [place]. tel:[phone] Referring Provider: Krish Henry, [address] [place] [address] , [place], [place], [facility]. tel:[phone] [facility], [address] [place] [address] , [place], [place], [id number], tel:[phone] [facility] No Information [address] Isabel Ches[address]. [address], [place], [address], [place]. tel:[phone] Family History Family Member Type Diagnosis Age At Onset Sister Problem Asthma Father Problem Rhinitis Sister Problem Rhinitis Half brother (P) Problem Rhinitis Mother Problem Rhinitis Payers Payer name Insurance type Covered alliance party ID Authormagaliea abena(s) [facility] Medicare [employer] [place] [id number] Social History Type Description Quantity Date Captured Comments Sex Female Smoking Status No Information Chief Complaint And Reason For Visit No Information Reason For Referral Reason For Referral No Information Plan Of Treatment Date Type Action Status Goal Tobacco cessation counseling completed Appointment Sharona Thompson 2 Mo F/up [place] History Of Present Illness Encounter Date Complaint History Of Prese nt Illness allergies and asthma Adverse Niles d Reaction / AnaphylaxisShe had an exposure to shrimp while at work. It was a last minute location change, and she warmed some food in the microwave. She developed throat tightness. She went to get some water and realized that there were shrimp noodles on the plate. She wonders if it ?boiled over in the microwave causing cross contamination. She notes that inhalation of shrimp causes sneezing and coughing at a baseline. She did have dyspnea, cough. She treated with her epinephrine auto-injectors (epipen or auvi-q) and then gave 2 puffs of albuterol. She was seen in the [facility] ED on 11/27/23 for anaphylaxis. She was treated with antihistamines (benadryl) and ?steroids. She avoids shellfish. She reports developing shellfish allergy in adulthood. She tolerates finned fish.Asthma - ACT: patient has asthma on albuterol PRN (used twice monthly). They were diagnosed with asthma as a teenager (~14 yo). The patient has never been hospitalized for asthma. Currently, they have exertional limitations 2/2 asthma symptoms (dyspnea). They report nocturnal awakenings with dyspnea and cough multiple nights per week. No ED/PCP/UC visits and no oral steroid bursts because of asthma in the last year. She did have a PCP visit and required steroids 2 years ago.RhinitisThe patient has a history of perennial rhinitis with seasonal worsening in spring/summer. The symptoms include nasal congestion, sneezing w/ ocular pruritus and tearing. Currently, the patient is on Flonase 2 SEN daily and cetirizine (zyrtec) 10 mg daily which does provide adequate relief. She follows with [facility] (Dr. Gonzalez) for hearing loss but also rhinitis. Contact DermatitisShbatsheva had patch testing in ~2022. She reports fragrance, neomycin, and rubber allergy. She has had some adhesive reactions.She reports ANUJ on CPAP but she does not wear it regularly due to having issues tolerating the mask.PMH: ANUJ, endometriosis, hearing loss, otherwise as abovePSH: hysterectomy, bilateral salpingo-oophorectomy, pelvic laparoscopic surgery (for endometriosis), tympanostomy tubes x 2, exploratory ear surgery, tonsillectomy, adenoidectomy, toe nail surgery (ingrown), other toe surgery, D&Cs x 3, section x 3Medication Allergies:Sulfa Drugs - Rash when she was a baby - reportedly hivesFHAsthma - sisterRhinitis - mom, dad, half brother, sisterSHTobacco: Occasional tobacco use (1 or 2 cigarettes per month)Occupation: Cleaning out storage unitEnvironmental HistoryLives in a house w/ central air/forced heat, w/o evidence of mold/water damageFlooring in Bedroom: carpetPets: dog x 1DataI reviewed outside records available in the EMR Functional Status Date Functional Assessmen t No Information Instructions Date Instruction Additional Infor keena - start Breo 100/25 mcg 1 puff daily- use albuterol 2 puffs every 4 hours as needed for cough, wheeze, or shortness of breath. Also, take 2 puffs 15-20 minutes prior to exertion Related to Moderate persistent asthma - resume Flonase 2 s prays each nostril daily- resume zyrtec 10 mg daily- Please remember to point the nasal spray away from the nasal septum, up and outwards towards the top of the ears on both sides- if nose bleeding occurs, please hold the nasal spray for 2-3 days to allow for healing of the nasal tissue (you may use nasal saline gel or vaseline on a q-tip to help heal the tissue), then restart the nasal spray.- If nose bleeding recurs, please stop the nasal spray and contact our office to set up an appointment for further guidance Related to Other allergic rhinitis Giving encouragement to exercise Related to Body mass index [BMI] 40.0-44.9, adult Assessments Type Assessment Date No Information Patient Care Teams Name Effective Dates (start - stop) Status Members No Information
--- OUTSIDE RECORDS SUMMARY | 2024-03-11 15:02 | XMS_ITS | Encounter Summary ---
Author Organization [facility] Address [address] [place] [address] Care Team Providers Care Bulk Coolers Installer Name Role Phone Veronica Weber MD Primary Care Provider [phone] Reason for Visit * Reason Comments Medication Refill Encounter Details Date Type Department Care Team (Late st Contact Info) Description 01/09/2019 Refill [facility] [place] [address] [place] [address] Clint Meyer NP NO ADDRESS ON FILE Bipolar disorder with moderate depression (CMS/HCC) Social History Tobacco Use Types Packs/Day Years Used Date Smoking Tobacco: Never Smokeless Tobacco: Never Alcohol Use Standard Drinks/Week Comments Not Currently 0 (1 standard drink = 0.6 oz pur e alcohol) rarely, 1 or 2 times yearly Comments No Sex and Gender Information Value Date Recorded Sex Assigned at Not on file Legal Sex Female 3:52 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
--- OUTSIDE RECORDS SUMMARY | 2024-03-11 15:02 | XMS_ITS | Continuity of Care Document ---
Author Organization [facility] Address [address] [place] [address] Phone Care Team Providers Care Levi Maker Name Role Phone Unavailable Unavailable Unavailable Advance Directives Directive Yes / No Effective Date File Name No Information Encounters Encounter Description Practice Location Reason(s) For Visit Diagnoses Date Provider Providers Copied on Encounter [facility], [address], [place], [place], [id number], tel:[phone] [facility] No Information No Information Referring Provider: CRISTIAN GRAHAM X, [address] [address], [place], [address]. tel:[phone] Family History Family Member Type Diagnosis Age At Onset No Information Payers Payer name Insurance type Covered constitution party ID Authoriza abena(s) REPLACED [facility] [id number] Social History Type Description Quantity Date Captured Comments Sex Female Smoking Status No Information Chief Complaint And Reason For Visit No Information History Of Present Illness Encounter Date Complaint History Of Prese nt Illness No Information Instructions Date Instruction Additional Infor mation No Information Assessments Type Assessment Date No Information
--- OUTSIDE RECORDS SUMMARY | 2024-03-11 15:02 | XMS_ITS | Clinical Summary ---
Author Organization [facility] Care Team Providers Care Precision Thread Grinder Operator Name Role Phone Unavailable Primary Care Provider Unavailabl e Social History Tobacco Use Types Packs/Day Years Used Date Smoking Tobacco: Never Assessed Comments Unknown Sex and Gender Information Value Date Recorded Sex Assigned at Not on file Legal Sex Female 11:22 AM CDT Gender Identity Not on file Sexual Orientation Not on file Plan of Treatment Health Maintenance Due Date Last Done Comments Hepatitis C Virus (HCV) Screening 1984 TdaP Immunization 1984 Hepatitis B Immunization (1 of 3 - 19+ 3-dose series) 07/18/2003 Pap Smear 2005 Cervical Cancer Screening (CCS) 2014 HPV/Cotest 2014 Influenza Immunization (#1) 10/19/202312/18, 12/31/2018 SARS-COV-2 Immunization ( season) 2023 12/24/2020, 06/20/2020, 05/30/2020 Respiratory Syncytial Virus (RSV) Immunization (Adult) (1 - 1-dose 75+ series) 07/18/2059 Meningococcal Immunization (ACWY) Aged Out No longer eligible b ased on patient's age to complete this topic Pneumococcal Immunization Combined Aged Out No longer eligible b ased on patient's age to complete this topic Rotavirus Immunization Aged Out No lo nger eligible based on patient's age to complete this topic
== END 2024-03-09 00:05 | disposition home or self-care (01) ==
PROVIDERS: Emergency Provider Physician Assistant; PCP Physician Assistant
DX: M54.2 Cervicalgia (principal); G89.29 Other chronic pain; E78.5 Hyperlipidemia, unspecified; F39 Unspecified mood [affective] disorder; F32.A Depression, unspecified; F41.9 Anxiety disorder, unspecified; K21.9 Gastro-esophageal reflux disease without esophagitis; F17.200 Nicotine dependence, unspecified, uncomplicated; Z90.710 Acquired absence of both cervix and uterus; Z79.899 Other long term (current) drug therapy
CPT/HCPCS: 99281

== ENCOUNTER 2024-03-25 10:15 | Outpatient (CLI) | payer MEDICARE, SELFPAY ==
--- NOTE | ~2024-03-25 | MR_ITS ---
EXAMINATION: MR cervical spine wo con DATE: 03/25/2024 11:05 INDICATION: Neck pain. Radiculopathy, cervical region. TECHNIQUE: Magnetic resonance imaging (MRI) of the cervical spine was performed without intravenous c ontrast. COMPARISON: CT cervical spine 02/05/2024 FINDINGS: There is mild kyphosis of cervical spine. Vertebral body heights are normal. Intervertebral disc heights are normal. The spinal cord signal intensity is normal. The following disc levels are s pecifically discussed: C2-C3: The disc does not extend beyond the endplate margin. There is mild left uncovertebral joint os teoarthritis. There is moderate right and mild left facet joint osteoarthritis. There is no neural fo raminal stenosis. There is no central canal stenosis. C3-C4: The disc does not extend beyond the endplate margin. There is mild bilateral uncovertebral porsha nt osteoarthritis. There is mild bilateral facet joint osteoarthritis. There is no neural foraminal s tenosis. There is no central canal stenosis. C4-C5: There is a central protrusion. There is mild bilateral uncovertebral joint osteoarthritis. The re is mild bilateral facet joint osteoarthritis. There is no neural foraminal stenosis. There is mild central canal stenosis. C5-C6: There is a central protrusion. There is no uncovertebral joint osteoarthritis. There is no fac et joint osteoarthritis. There is no neural foraminal stenosis. There is mild central canal stenosis. C6-C7: There is a central protrusion. There is no uncovertebral joint osteoarthritis. There is mild r ight facet joint osteoarthritis. There is no neural foraminal stenosis. There is mild central canal s tenosis. C7-T1: There is a central protrusion. There is no uncovertebral joint osteoarthritis. There is mild b ilateral facet joint osteoarthritis. There is no neural foraminal stenosis. There is no central canal stenosis. IMPRESSION: 1. Mild cervical spondylosis. Reviewed, dictated and finalized at location A. WORK ASSEMBLER
== END 2024-03-25 10:16 | disposition home or self-care (01) ==
LOC: MICIMG 10:16
PROVIDERS: PCP Physician Assistant; Visit Provider Nurse Practitioner Adult Health
DX: M47.812 Spondylosis without myelopathy or radiculopathy, cervical region (principal)
CPT/HCPCS: 72141

== ENCOUNTER 2024-04-23 07:46 | Emergency (ER) | payer MEDICARE, MEDICAID, SELFPAY ==
--- OUTSIDE RECORDS SUMMARY | 2024-04-23 07:49 | XMS_ITS | Clinical Summary ---
Author Organization [facility] Care Team Providers Care Process Consultant Name Role Phone Unavailable Primary Care Provider [...]
--- OUTSIDE RECORDS SUMMARY | 2024-04-23 07:49 | XMS_ITS | Encounter Summary ---
Author Organization [facility] Address [address] [place] [address] Care Team Providers Care Cafeteria Assistant Name Role Phone Veronica Weber MD Primary Care Provider [phone] Reason for Visit * Reason Comments Medication Refill Encounter Details Date Type Department Care Team (Late st Contact Info) Description 01/09/2019 Refill [facility] [place] [address] [place] [address] Clint Meyer NP NO ADDRESS [...] on file Legal Sex Female 3:52 AM PRODUCT SAFETY COMPLIANCE LEADER Gender Identity Not on file Sexual Orientation [...] moderate documented in this encounter Care Teams Cafeteria Assistant Relationship Specialty Start Date End Date Veronica Weber MD [address] [place] [phone] PCP - General 10/13/17 documented as of this encounter
--- OUTSIDE RECORDS SUMMARY | 2024-04-23 07:49 | XMS_ITS | Encounter Summary ---
Author Organization [facility] Address [address] [place] [address] Care Team Providers Care Automatic Pinsetter Adjuster Name Role Phone Veronica Weber MD Primary Care Provider [phone] Reason for Visit * Reason Comments Medication Refill Encounter Details Date Type Department Care Team (Late st Contact Info) Description 04/11/2019 Refill [facility] [address] [place] [address] Clint Meyer NP NO ADDRESS [...] file Legal Sex Female 3:52 AM DIRECTOR MANUFACTURING ENGINEERING Gender Identity Not on file Sexual Orientation [...] moderate documented in this encounter Care Teams Automatic Pinsetter Adjuster Relationship Specialty Start Date End Date Veronica Weber MD [address] [place] [phone] PCP - General 10/13/17 documented as of this encounter
--- OUTSIDE RECORDS SUMMARY | 2024-04-23 07:49 | XMS_ITS | Encounter Summary ---
Author Organization [facility] Address 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
--- OUTSIDE RECORDS SUMMARY | 2024-04-23 07:49 | XMS_ITS | Referral Summary ---
Author Organization [facility] [employer] Address [address] [place] [address] Care Team Providers Care Early Childhood Education Specialist Name Role Phone Veronica Weber MD Primary Care Provider [phone] Source Comments [facility],non-owned Affiliates and Associated Physician Practices is amultiple site organization consisting of ambulatory clinics and hospital sitesin [place], [place], [place] and [place]. This disclosure is being madepursuant to the Care Everywhere program and may not contain all information available regarding this patient. Last updated 17.[facility] [employer] Allergies Active Allergy Reactions Criticality Noted Date [...] 98 11/27/2023 1:35 PM CDT Temperature 36.9 C (98.4 F) 11/27/2023 1:35 PM CDT Respiratory Rate 18 11/27/2023 1:35 PM CDT Oxygen Saturation 96% 11/27/2023 3:59 PM CDT Inhaled Oxygen Concentration - - Weight 112.5 kg (248 lb) 08/18/2019 8:47 AM CDT Height 165.1 cm (5' 5 ) 08/18/2019 8:47 AM CDT Body Mass Index 41.27 08/18/2019 8:47 AM CDT Plan of Treatment Not on file Administered Medications Care Teams Early Childhood Education Specialist Relationship Specialty Start Date End Date Veronica Weber MD [address] [place] [address] PCP - General Family Medicine 09/14/18
--- OUTSIDE RECORDS SUMMARY | 2024-04-23 07:49 | XMS_ITS | Clinical Summary ---
Author Organization [facility] [address] [facility] Address [address] [place] [address] Care Team Providers Care Treatment Manager Name Role Phone Veronica Weber MD Primary Care Provider [phone] Allergies Active Allergy Reactions Criticality Noted Date [...] Breath. 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 Not on file Not on file Not on file Last Filed Vital Signs Vital Sign Reading Time Taken Comments Blood Pressure 122/72 12/24/2021 9:09 AM MARKETING SALES CONSULTANT Pulse 75 12/24/2021 9:09 AM MARKETING SALES CONSULTANT Temperature 36.1 C (97 F) 06/09/2019 1:10 PM CDT Respiratory Rate 18 12/24/2021 9:09 AM MARKETING SALES CONSULTANT Oxygen Saturation 99% 12/24/2021 9:09 AM MARKETING SALES CONSULTANT Inhaled Oxygen Concentration - - Weight 110.3 kg (243 lb 3.2 oz) 12/24/2021 9:09 AM MARKETING SALES CONSULTANT Height 162.6 cm (5' 4 ) 12/24/2021 9:09 AM MARKETING SALES CONSULTANT Body Mass Index 41.75 12/24/2021 9:09 AM MARKETING SALES CONSULTANT Plan of Treatment Health Maintenance Due Date Last Done Comments HEPATITIS B VACCINES (1 of 3 - 19+ 3-dose series) 07/18/2003 Preventative Visit-Managed Medicaid 07/18/2003 CERVICAL CANCER SCREENING 2014 INFLUENZA VACCINE (#1) 2023 0, 12/31/2018, 04/09/2017, Additional history exists Pre-Diabetes and Diabetes Screening 03/25/2025 03/25/2022 DTAP/TDAP/TD VACCINES (3 - Td or Tdap) 07/05/2025 07/06/2015, 09/11/2009 HPV VACCINES Aged Out No longer eligi ble based on patient's age to complete this topic Procedures Procedure Name Priority Date/Time Associated Diagnosis Comments HEMOGLOBIN A1C Routine 03/25/2022 1:36 PM MARKETING SALES CONSULTANT from Last 3 Months or Most Recently Relevant to Health Maintenance Results * HEMOGLOBIN A1C (03/25/2022 1:36 PM MARKETING SALES CONSULTANT) HEMOGLOBIN A1C 5.4 <5.7 % of total Hgb [facility] Comment: For the purpose of screening for the presence of diabetes: <5.7% Consistent with the absence of diabetes 5.7-6.4% Consistent with increased risk for diabetes (prediabetes) > or =6.5% Consistent with diabetes This assay result is consistent with a decreased risk of diabetes. Currently, no consensus exists regarding use of hemoglobin A1c for diagnosis of diabetes in children. According to [place] Diabetes Association (ADA) guidelines, hemoglobin A1c <7.0% represents optimal control in non- diabetic patients. Different metrics may apply to specific patient populations. Standards of Medical Care in Diabetes(ADA). ESTIMATED AVERAGE GLUCOSE (MG/DL) 108 mg/dL [facility] ESTIMATED AVERAGE GLUCOSE (MMOL/L) 6.0 mmol/L [facility] Comment: FASTING:NO FASTING: NO Test Performed at: [place] [address] [address] [place] [id number] Diane Jack 03/25/2022 1:36 PM MARKETING SALES CONSULTANT 03/25/2022 1:37 PM MARKETING SALES CONSULTANT us Crista Elena MD CHEMISTRY ORDERABLES Final Re sult [facility] [phone] [place] [address] [address] [place] [phone] from Last 3 Months or Most Recently Relevant to Health Maintenance Insurance [place] RX [employer] [place] Advance Directives For more information, please contact: [phone] * Full Code (Latest Code Status on File) Date Activated Date Inactivated Comments 06/09/2019 12:45 PM 06/10/2019 10:59 AM * Full Code Date Activated Date Inactivated Comments 06/09/2019 11:35 AM 06/09/2019 12:45 PM * Full Code Date Activated Date Inactivated Comments 03/16/2019 8:40 AM 03/16/2019 3:42 PM * Full Code Date Activated Date Inactivated Comments 03/25/2018 12:06 AM 03/31/2018 8:46 PM Care Teams Treatment Manager Relationship Specialty Start Date End Date Veronica Weber MD [address] [place] [address] PCP - General 10/13/17
--- OUTSIDE RECORDS SUMMARY | 2024-04-23 07:49 | XMS_ITS | Patient Health Summary ---
Author Organization [facility] Address [address] [facility] [place] [address] Care Team Providers Care Media Marketing Coordinator Name Role Phone Veronica Weber MD Primary Care Provider Note from [facility],non-owned Affiliates and Associated Physician Practices is amultiple site organization consisting of ambulatory clinics and hospital sitesin [place], [place], [place] and [place]. This disclosure is being madepursuant to the Care Everywhere program and may not contain all information available regarding this patient. Last updated 17.[facility] Allergies * Povidone Iodine(Anaphylaxis) -High Criticality * [...] (STL)(Performed 08/18/2019) Performed for Diagnosis unknown * IN TOTAL ABDOM HYSTERECTOMY(Performed 08/18/2019) Performed for R10.2, [...] 4.0 - 10.7 x10E9/L 11/27/2023 3:09 PM [facility] RBC Count 4.95 3.90 - 5.20 x10E12/L 11/27/2023 3:09 PM [facility] Hemoglobin 14.3 11.9 - 15.8 g/dL 11/27/2023 3:09 PM [facility] Hematocrit 40.8 34.8 - 46.1 % 11/27/2023 3:09 PM [facility] MCV 82.4 80.0 - 98.0 fL 11/27/2023 3:09 PM [facility] MCH 28.9 26.7 - 33.6 pg 11/27/2023 3:09 PM [facility] MCHC 35.0 31.7 - 36.3 g/dL 11/27/2023 3:09 PM [facility] RDW-CV 12.6 11.3 - 14.8 % 11/27/2023 3:09 PM [facility] Platelet Count 199 150 - 420 x10E9/L 11/27/2023 3:09 PM [facility] MPV 10.0 7.8 - 11.4 fL 11/27/2023 3:09 PM [facility] Neutrophil % 67.7 41.0 - 74.0 % 11/27/2023 3:09 PM [facility] Lymphocyte % 25.9 17.0 - 47.0 % 11/27/2023 3:09 PM [facility] Monocyte % 5.3 3.0 - 11.0 % 11/27/2023 3:09 PM [facility] Eosinophil % 0.2 0.0 - 7.0 % 11/27/2023 3:09 PM [facility] Basophil % 0.6 0.0 - 1.6 % 11/27/2023 3:09 PM [facility] Immature Granulocytes % 0.3 0.0 - 1.0 % 11/27/2023 3:09 PM [facility] Neutrophil Absolute 4.51 1.60 - 7.50 x10E9/L 11/27/2023 3:09 PM [facility] Lymphocyte Absolute 1.72 1.00 - 4.40 x10E9/L 11/27/2023 3:09 PM [facility] Monocyte Absolute 0.35 0.15 - 1.00 x10E9/L 11/27/2023 3:09 PM [facility] Eosinophil Absolute 0.01 0.00 - 0.60 x10E9/L 11/27/2023 3:09 PM [facility] Basophil Absolute 0.04 0.00 - 0.13 x10E9/L 11/27/2023 3:09 PM [facility] Blood BLOOD SPECIMEN / Unknown Venipuncture / Unknown 11/27/2023 2:52 PM CDT 11/27/2023 2:58 PM CDT Silvino Dugan MD LAB - HEMATOLOGY ORD ERABLES [facility] [address] [place] [id number], [facility] [phone] * (ABNORMAL) COMPREHENSIVE METABOLIC PANEL (11/27/2023 2:52 PM CDT) [facility] BUN 14 7 - 26 mg/dL 11/27/2023 3:28 PM [facility] Creatinine 0.77 0.56 - 0.96 mg/dL 11/27/2023 3:28 PM [facility] Sodium 140 136 - 145 mmol/L 11/27/2023 3:28 PM [facility] Potassium 3.4(L) 3.5 - 4.5 mmol/L 11/27/2023 3:28 PM [facility] Chloride 103 98 - 107 mmol/L 11/27/2023 3:28 PM [facility] CO2 24 22 - 29 mmol/L 11/27/2023 3:28 PM [facility] Glucose 116(H) 70 - 115 mg/dL 11/27/2023 3:28 PM [facility] Calcium 9.7 8.4 - 10.2 mg/dL 11/27/2023 3:28 PM [facility] Protein Total 7.3 6.0 - 8.3 g/dL 11/27/2023 3:28 PM [facility] Albumin 4.4 3.4 - 5.0 g/dL 11/27/2023 3:28 PM [facility] Bilirubin Total 0.3 0.2 - 1.2 mg/dL 11/27/2023 3:28 PM [facility] Alkaline Phosphatase 75 40 - 150 U/L 11/27/2023 3:28 PM [facility] ALT 12 5 - 55 U/L 11/27/2023 3:28 PM [facility] AST 14 5 - 34 U/L 11/27/2023 3:28 PM [facility] Anion Gap 13 6 - 16 11/27/2023 3:28 PM [facility] BUN/Creatinine Ratio 18 7 - 23 11/27/2023 3:28 PM [facility] Osmolality Calculated 291 275 - 295 mOsm/kg 11/27/2023 3:28 PM [facility] Albumin/Globulin Ratio 1.5 1.1 - 2.3 11/27/2023 3:28 PM [facility] eGFR by CKD-EPI >90 >=90 mL/min/1.7 3 m2 11/27/2023 3:28 PM [facility] Blood BLOOD SPECIMEN / Unknown Venipuncture / Unknown 11/27/2023 2:52 PM CDT 11/27/2023 2:58 PM CDT Silvino Dugan MD LAB - CHEMISTRY CARISSA HARIKAIVORY Performing Organization Address City/[facility]/ZIP Co de Phone Number [address] [address], [facility] [phone] * MAGNESIUM BLOOD (11/27/2023 2:52 PM CDT) Magnesium 1.9 1.6 - 2.6 mg/dL 11/27/2023 3:28 PM CDT [facility] Blood BLOOD SPECIMEN / Unknown Venipuncture / Unknown 11/27/2023 2:52 PM CDT 11/27/2023 2:58 PM CDT Silvino Dugan MD LAB - CHEMISTRY CARISSA MARTINEZ Performing Organization Address City/[facility]/ZIP Co de Phone Number [address] [address], [place] [phone] * SKIN TEST PPD - POINT OF CARE (11/03/2020 10:03 AM CDT) PPD 0 [facility] Other MISCELLANEOUS SAMPLE S / Unknown 11/03/2020 10:03 AM CDT Serene Stone APRN-TYPING OFFICE WORKER LAB - POINT OF CA RE ORDERABLES [facility] [address] [place] [address], [facility] [phone] * GROSS + MICRO EXAM (STL) (08/18/2019 11:15 AM CDT) Case Report Surgical Pathology Report Case: [id number] Authorizing Provider: Jose Andrea MD Collected: 08/18/2019 11:32 AM Ordering Location: Received: 08/18/2019 02:19 PM Pathologist: Tran Abraham MD Specimens: A) - Uterus w BSO, UTERUS and cervix B) - Fallopian Tube, LEFT FALLOPIAN AND OVARY C) - Fallopian Tube, RIGHT FALLOPIAN TUBE AND OVARY 08/19/2019 3:[address] [facility] Final Diagnosis Uterus, cervix, hysterectomy: - No histopathologic abnormality Uterus, endometrium, hysterectomy: - Proliferative endometrium Uterus, myometrium, hysterectomy: - No histopathologic abnormality Ovary and fallopian tube, left, salpingo-oophorectomy : - Cystic follicles - Fallopian tube with no histopathologic abnormality Ovary and fallopian tube, right, salpingo-oophorectomy : - Cystic follicles - Fallopian tube with no histopathologic abnormality KL/ns 08/19/2019 3:[address] [facility] Gross Description Received are three formalin-filled [...] the uterus reveals no significant gross abnormalities. Mission Systems Engineer sections are submitted per cassette summary: A1 [...] sectioned, revealing multiple small cystic cut surfaces. Mission Systems Engineer sections are submitted in cassette B1. Specimen [...] cm in diameter with a smooth lining. Mission Systems Engineer sections are submitted in cassette C1. SD/ns 08/19/2019 3:[address] [facility] Microscopic Description Histologic sections of [...] evidence of malignancy. KL/ns 08/19/2019 3:[address] [facility] Disclaimer All histochemical and/or immunohistochemical results are interpreted with controls that demonstrate appropriate staining reactions before reporting results. Note on use of immunocytochemistry reagents: This test was developed and its performance characteristic determined by [facility], Department of Laboratory Medicine. It has not [...] be interpreted with caution. 08/19/2019 3:[address] [facility] Embedded Images 08/19/2019 3:[address] [facility] Pathology/Cytology HYSTERECTOMY AND BILATERAL SALPINGO-OOPHORECTO MY SPECIMEN / Unknown 08/18/2019 11:15 AM CDT 08/18/2019 2:19 PM CDT Comment:Pre-op diagnosis: R10.2 N94.5 Miscellaneous samples (specimen) FALLOPIAN TUBE PART / Unknown 08/18/2019 11:32 AM CDT 08/18/2019 2:19 PM CDT Comment:Pre-op diagnosis: R10.2 N94.5 Miscellaneous samples (specimen) FALLOPIAN TUBE PART / Unknown 08/18/2019 11:42 AM CDT 08/18/2019 2:19 PM CDT Comment:Pre-op diagnosis: R10.2 N94.5 Jose Andrea MD LAB - PATHOLOGY/CY TOLOGY ORDERABLES Performing Organization Address [facility] Co de Phone Number [facility] [address] [place] [address] * TYPE + SCREEN PANEL (08/18/2019 9:08 AM CDT) ABO Rh A POS 08/18/2019 10:09 AM CDT [facility] Antibody Screen NEG 0 10:09 AM CDT [facility] Blood Bank BLOOD SPECIMEN / Unknown Venipuncture / Unknown 08/18/2019 9:08 AM CDT 08/18/2019 9:15 AM CDT Jose Andrea MD LAB - BLOOD BANK O RDERABLES Performing Organization Address [facility] Co de Phone Number [facility] [address] [place], [place] [address] [phone] * BLOOD TYPE VERIFICATION (08/18/2019 8:57 AM CDT) ABO Rh A POS 08/18/2019 10:10 AM CDT [facility] Blood Bank BLOOD SPECIMEN / Unknown Lab Venipuncture / Unknown 08/18/2019 8:57 AM CDT 08/18/2019 9:18 AM CDT Jose Andrea MD LAB - BLOOD BANK O RDERABLES Performing Organization Address City/[facility]/ZIP Co de Phone Number [facility] [address] [id number] [phone] * HCG URINE QUALITATIVE - POCT (IP) INTERFACED (08/18/2019 8:34 AM CDT) HCG Qual Urine Negative Negative 08/18/2019 8:40 AM CDT [facility] Urine URINE / Unknown 08/18/2019 8 :34 AM CDT 08/18/2019 8:40 AM CDT Jose Andrea MD LAB - POINT OF CAR E ORDERABLES Performing Organization Address City/[facility]/ZIP Co de Phone Number [facility] [address] [place] [address] * HCG URINE QUAL POCT NOTIFICATION (08/18/2019 8:23 AM CDT) Comment Notification Label Only - See Separate Report 08/18/2019 9:30 AM CDT [facility] Urine URINE / Unknown 08/18/2019 8 :23 AM CDT 08/18/2019 8:24 AM CDT Jose Andrea MD LAB - URINALYSIS O RDERABLES Performing Organization Address City/[facility]/ZIP Co de Phone Number [facility] [address] [place] [address] * SARS-COV-2 (COVID-19) IN HOUSE (08/16/2019 8:11 AM CDT) COVID-19 PCR Not detected Not detected, Invalid 08/16/2019 6:46 PM CDT [facility] Microbiology SPECIMEN FROM NASOPHARYNGEAL STRUCTURE / Unknown Collection / Unknown 08/16/2019 8:11 AM CDT 08/16/2019 9:10 AM CDT Narrative [facility] - 08/16/2019 6:46 PM CDT This nucleic acid amplification assay performance was validated by [facility]. This test has been authorized by the Food and Drug administration (FDA)under an Emergency Use Authorization (EUA). This test has been validated [...] Jose Andrea MD LAB - MICROBIOLOGY ORDERABLES [facility] [address] [place] [address], [facility] [phone] * US PELVIS WITH TRANSVAG NON OB [...] 09/14/2018 at 3:25 PM Jose Andrea MD US ORDERABLES * ALLERGEN LATEX IGE (02/05/2011 11:26 AM TOPOLOGY PROFESSOR) Class Description [facility] Comment: Levels of Specific IgE Class Description of Class ----- <0.08 0 Negative 0.08 - 0.15 I 0.16 - 0.50 II Increasing 0.51 - 2.50 III levels 2.51 - 12.50 IV of 12.51 - 62.50 V Specific IgE 62.51 - >100.00 Antibody Latex <0.08 Class 0 kU/L [facility] 02/05/2011 11:2 6 AM TOPOLOGY PROFESSOR 02/05/2011 6:02 PM TOPOLOGY PROFESSOR Narrative [facility] - 02/08/2011 3:36 PM TOPOLOGY PROFESSOR Preferred Lab:->[facility] Performed at: [address] [id number] Insurance Salesman: Tramaine Dunne MD, Phone: [phone] Erika Ayon MD LAB - CHEMISTRY OR DERABLES [facility] * LAB HISTORICAL RESULTS-ONBASE (02/05/2011) 02/05/2011 Historical Provider LAB - CHEMISTRY O RDERABLES [facility] Care Teams Media Marketing Coordinator Relationship Specialty Start Date End Date Veronica Weber MD [address] [place] [address] PCP - General Family Medicine 09/14/18
--- OUTSIDE RECORDS SUMMARY | 2024-04-23 07:49 | XMS_ITS | Clinical Summary ---
Author Organization [facility] [employer] Address [address] [place] [address] Care Team Providers Care Senior Accounting Specialist Name Role Phone Veronica Weber MD Primary Care Provider [phone] Source Comments [facility] [employer],non-owned Affiliates and Associated Physician Practices is amultiple site organization consisting of ambulatory clinics and hospital sitesin [place], [place], [place] and [place]. This disclosure is being madepursuant to the Care Everywhere program and may not contain all information available regarding this patient. Last updated 17.[facility] [employer] Allergies Active Allergy Reactions Criticality Noted Date [...] history exists DEPRESSION SCREENING 02/18/2024 MEDICARE AWV CALENDAR YEAR 2024 PAP SMEAR 06/10/2026 06/11/2023 [...] age to complete this topic Care Teams Senior Accounting Specialist Relationship Specialty Start Date End Date Veronica Weber MD [address] [place], [place] [id number] PCP - General Family Medicine 09/14/18
[2024-04-23 07:51] VITALS: BP 124/88; PULSE 85; RESP 16; TEMP 36.6; O2SAT 100
--- NOTE | 2024-04-23 08:04 | ED_ITS ---
HPI - General Adult General Chief complaint: Neck Pain/Injury Stated complaint: neck pain Time Seen by Provider: 04/23/24 07:58 History of Present Illness HPI narrative: 38-year-old female present to the emergency department for evaluation for left lateral neck strain. Patient felt a pop on the left side of her neck yesterday. Patient reports he has been having intermittent symptoms with this since October. Patient describes pain in her left shoulder that does radiate up into her left neck. Patient is neurovascularly intact. Related Data Home Medications ?Medication ?Instructions ?Recorded ?Confirmed ?Last Taken ?Type fluoxetine 20 mg capsule 20 mg PO DAILY 04/10/23 03/31/24 Unknown History atorvastatin 80 mg tablet 80 mg PO DAILY 12/30/23 03/31/24 Unknown History fluticasone furoate 100 See Rx Instructions .Route .COMPLEX 12/30/23 03/31/24 Unknown History mcg-vilanterol 25 mcg/dose inhalation powder (Breo Ellipta) lisinopril 10 mg tablet 10 mg PO DAILY 12/30/23 03/31/24 Unknown History progesterone micronized 200 mg 200 mg PO DAILY 12/30/23 03/31/24 Unknown History capsule fluticasone furoate 100 1 inh inhalation DAILY 03/22/24 03/31/24 Unknown History mcg-vilanterol 25 mcg/dose inhalation powder (Breo Ellipta) hydroxyzine HCl 10 mg tablet 10 mg PO TID PRN 03/22/24 03/31/24 Unknown History pantoprazole 20 mg tablet,delayed 20 mg PO QAM 03/22/24 03/31/24 Unknown History release sucralfate 1 gram tablet PO 03/22/24 03/31/24 Unknown History Allergies Allergy/AdvReac Type Severity Reaction Status Date / Time iodine Allergy Severe Anaphylactic Verified 03/31/24 10:58 Shock shellfish derived Allergy Severe Anaphylactic Verified 03/31/24 10:58 Shock Sulfa (Sulfonamide Allergy Intermediate Rash Verified 03/31/24 10:58 Antibiotics) adhesive tape Allergy Mild Rash Verified 03/31/24 10:58 benzalkonium chloride Allergy Mild Rash Verified 03/31/24 10:58 gramicidin D Allergy Mild Rash Verified 03/31/24 10:58 hydrocortisone Allergy Mild Rash Verified 03/31/24 10:58 neomycin Allergy Mild Rash Verified 03/31/24 10:58 polymyxin B Allergy Mild Rash Verified 03/31/24 10:58 simvastatin AdvReac Mild Rash Verified 03/31/24 10:58 SHELLFISH Allergy Severe Anaphylactic Uncoded 03/31/24 10:58 Shock BACITRACIN ZINC Allergy Mild Rash Uncoded 03/31/24 10:58 NEOMYCIN SULFATE Allergy Mild Rash Uncoded 03/31/24 10:58 POLYMYXIN B SULFATE Allergy Mild Rash Uncoded 03/31/24 10:58 Review of Systems Review of Systems: All systems reviewed & are unremarkable except as noted in HPI and below PMFSH Past Medical History Medical History Ulcer IBS (irritable bowel syndrome) Asthma Anxiety Anxiety and depression GERD (gastroesophageal reflux disease) Hx of migraines Seizures Prediabetes Hyperlipidemia Mood disorder Surgical History Surgical History Previous section x2 History of tonsillectomy H/O: hysterectomy (~2019) Ingrown toenail H/O adenoidectomy Social History Social History Smoking status: Former smoker Second hand tobacco smoke exposure: No Alcohol intake: current Substance use: never Substance use type: does not use Do You Feel Safe in your Home?: No Lack of Transportation: No Lack of Food: Often True Current Housing: I Do Not Have Housing Concerned About Future Housing: YES Difficulty Paying Gas/Electric Bills: No Difficulty Paying for Meds: No Currently Unemployed: YES Education: Bachelor's Degree Difficulty w/ Childcare or Family Care: YES Living arrangements: with family Gender identity (if verbalized by the patient): Female Spiritual care concerns: No Agree to blood products: Yes Exam Narrative: APPEARANCE: Well appearing, no pain, no distress, well-nourished. HEAD: normocephalic, atraumatic. EYES: PERRLA/EOMI, conjunctivae clear. NOSE: Normal no drainage EARS:TMS clear with good light reflex. THROAT: Pharynx clear, no exudate. NECK: Supple. No adenopathy, no masses. RESPIRATORY: Airway patent, respirations nonlabored. Clear to auscultation bilaterally, no rales, rhonchi, wheezing. CARDIOVASCULAR: Regular rate and rhythm without murmurs rubs or gallops. ABDOMINAL: Soft, nontender, nondistended, normal bowel sounds MUSCULOSKELETAL: Left lateral trapezius tenderness and to cervical portion of trapezius muscle NEURO: Alert. Cranial nerves II through XII intact. Good gait. Good coordination SKIN: No ecchymosis, edema Course Vital Signs Vital signs: Vital Signs Temperature 97.8 F 04/23/24 07:51 Pulse Rate 85 04/23/24 07:51 Respiratory Rate 16 04/23/24 07:51 Blood Pressure 124/88 04/23/24 07:51 Pulse Oximetry 100 04/23/24 07:51 Oxygen Delivery Room Air 04/23/24 07:51 Temperature 97.8 F 04/23/24 07:51 Pulse Rate 85 04/23/24 07:51 Respiratory Rate 16 04/23/24 07:51 Blood Pressure 124/88 04/23/24 07:51 Pulse Oximetry 100 04/23/24 07:51 Oxygen Delivery Room Air 04/23/24 07:51 Medical Decision Making MDM Narrative Medical decision making narrative: 38-year-old female present to the emergency department for evaluation for left lateral neck strain. Exam is consistent with left trapezius strain. Patient is neurologically intact. No midline cervical spine tenderness to palpation Differential Diagnosis Differential Diagnosis: Cervical strain, trapezius strain, muscular strain Vital Signs Vital Signs: Vital Signs Temperature 97.8 F 04/23/24 07:51 Pulse Rate 85 04/23/24 07:51 Respiratory Rate 16 04/23/24 07:51 Blood Pressure 124/88 04/23/24 07:51 Pulse Oximetry 100 04/23/24 07:51 Oxygen Delivery Room Air 04/23/24 07:51 Temperature 97.8 F 04/23/24 07:51 Pulse Rate 85 04/23/24 07:51 Respiratory Rate 16 04/23/24 07:51 Blood Pressure 124/88 04/23/24 07:51 Pulse Oximetry 100 04/23/24 07:51 Oxygen Delivery Room Air 04/23/24 07:51 Discharge Plan Discharge Clinical Impression: Strain of cervical portion of left trapezius muscle Patient Disposition: Home, Self-Care Condition: Stable Instructions: Antibiotic Form, Cervical Strain (ED) Additional Instructions: Tylenol for pain control. Flexeril for muscle spasm. Have close follow-up with your primary care physician. If you have any worsening symptoms and please call or return to the emergency department. Patient Language: Spanish Prescriptions: New cyclobenzaprine 10 mg tablet 10 mg PO BID PRN (Reason: muscle spasm) Qty: 14 0RF No Action fluoxetine 20 mg capsule 20 mg PO DAILY ondansetron 8 mg tablet,disintegrating 8 mg PO Q4-6H PRN (Reason: nausea and vomiting) Qty: 20 0RF atorvastatin 80 mg tablet 80 mg PO DAILY lisinopril 10 mg tablet 10 mg PO DAILY progesterone micronized 200 mg capsule 200 mg PO DAILY fluticasone furoate-vilanterol [Breo Ellipta] 100-25 mcg/dose blister with device See Rx Instructions .ROUTE .COMPLEX Rx Instructions: Rx benzonatate 200 mg capsule 200 mg PO TID PRN (Reason: cough) Qty: 30 0RF albuterol sulfate 90 mcg/actuation HFA aerosol inhaler See Rx Instructions .ROUTE .COMPLEX Qty: 18 10RF Dose Instruction: INHALE ONE PUFF BY MOUTH EVERY 4 HOURS NEEDED FOR SHORTNESS OF BREATH OR FOR WHEEZING Rx Instructions: INHALE ONE PUFF BY MOUTH EVERY 4 HOURS NEEDED FOR SHORTNESS OF BREATH OR FOR WHEEZING fluticasone furoate-vilanterol [Breo Ellipta] 100-25 mcg/dose blister with device 1 inh inhalation DAILY sucralfate 1 gram tablet PO pantoprazole 20 mg tablet,delayed release (DR/EC) 20 mg PO QAM hydroxyzine HCl 10 mg tablet 10 mg PO TID PRN epinephrine 0.3 mg/0.3 mL auto-injector 0.3 mg IM ONCE Qty: 2 0RF Rx Instructions: as a single dose; may repeat once prazosin 1 mg capsule 1 mg PO BID Qty: 60 0RF ondansetron 4 mg tablet,disintegrating 4 mg PO Q8H PRN (Reason: nausea and vomiting) Qty: 14 0RF cyclobenzaprine 10 mg tablet 10 mg PO TID PRN (Reason: muscle spasm) Qty: 14 0RF famotidine 10 mg tablet 10 mg PO BID Qty: 14 0RF cetirizine [Zyrtec] 10 mg tablet 10 mg PO DAILY Qty: 7 0RF acetaminophen 500 mg tablet 1,000 mg PO TID PRN (Reason: daniel) 7 Days Qty: 42 0RF ibuprofen 800 mg tablet 800 mg PO TID PRN (Reason: pain) 7 Days Qty: 21 0RF Follow-up/Referrals: David,LACHO Edmonds [Primary Care Provider] -
--- OUTSIDE RECORDS SUMMARY | 2024-04-23 08:07 | XMS_ITS | Continuity of Care Document ---
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 Role Phone Isaura Hall MD Unavailable Unavailable Allergies, Adverse Reactions, Alerts Substance Reaction Status Criticality Sulfa (Sulfonamide Antibiotics) Active No Information Medications Medication Instructions Dosage Effective Dates (start - stop) Status Comments EpiPen 0.3 mg/0.3 mL injection, auto-injector inject 0.3 milliliter by intramuscular route once as needed for anaphylaxis 0.3 MG - Active albuterol sulfate 2.5 mg/3 mL (0.083 %) solution for nebulization inhale 3 milliliter (2.5MG) by NEBULIZATION route every 4-6 hours PRN - Active nebulizer and compressor use with albuterol as directed - Active Reusable Nebulizer Kit used with nebulizer as directed - Active Breo Ellipta 100 mcg-25 mcg/dose powder for [...] NEEDED FOR NAUSEA OR VOMITING - Active cetirizine 10 mg tablet take 1 tablet by oral route 2 times every day 10 MG - Active albuterol sulfate HFA 90 mcg/actuation aerosol inhaler inhale 2 puff by Inhalation route every 4 - 6 hours as needed 2 puff - Active EpiPen 0.3 mg/0.3 mL injection, auto-injector inject 0.3 milliliter by intramuscular route once as needed for anaphylaxis 0.3 MG - No Longer Active Procedures Procedure Date Perc Test Est (Level 4) OFFICE/OUTPATIENT VISIT Ma Est (Level 4) OFFICE/OUTPATIENT VISIT Ja Flow Volume Loop Health Risk Assesment Patient Focused Oc New (Level 4) OFFICE/OUTPATIENT VISIT Oc Advance Directives Directive Yes / No Effective Date File Name No Information Encounters Encounter Description Practice Location Reason(s) For Visit Diagnoses Date Provider Providers Copied on Encounter Est (Level 4) OFFICE/OUTPA TIENT VISIT [facility], [address] [place] [address] [place], [place], [id number], [place] tel:[phone] [facility] allergies and asthma (chief complaint) Body mass index (BMI) 40.0-44.9, adultModerate persistent asthmaOther allergic rhinitisOther adverse food reaction, subsequent encounter [address]. [address] [place], [address], [place]. tel:[phone] Referring Provider: Krish Henyr, [address] [place] [address] [address], [place], [address]. tel:[phone] Est (Level 4) OFFICE/OUTPA TIENT VISIT [facility], [address] [place] [address] , [place], [place], [id number], tel:[phone] [facility] asthma (chief complaint) Body mass index (BMI) 40.0-44.9, adultModerate persistent asthmaOther allergic rhinitisOther adverse food reaction, subsequent encounter [address] Isabel [address]. [address] [place], [address], . tel:[phone] Referring Provider: Krish Henry, [address] [place] [address] [address], [place], [address]. tel:[phone] New (Level 4) OFFICE/OUTPA TIENT VISIT [facility], [address] [place] [address] [address], [place], [place], [id number], tel:[phone] [facility] allergies and asthma (chief complaint) Body mass index (BMI) 40.0-44.9, adultOther allergic rhinitisModerate persistent asthmaOther adverse food reaction, initial encounterObstruc tive sleep apnea (adult) (pediatric)Conta ct dermatitis due to other agentAnaphylacti c reaction due to crustacean, initial encounter [address]. [address] [place], [address], . tel:[phone] Referring Provider: Krish Henry, [address] [place] [address] [address], [place], [address]. tel:[phone] [facility], [address] [place] [address], [place], [place], [id number], [place] tel:[phone] [facility] No Information [address] Isabel [address]. [address] , [place], [address], . tel:[phone] Family History Family Member Type Diagnosis Age At Onset Sister Problem Asthma Father Problem Rhinitis Sister Problem Rhinitis Half brother (P) Problem Rhinitis Mother Problem Rhinitis Payers Payer name Insurance type Covered republican ID palma isakbebe(s) [facility] [employer] [place] [id number] Social History Type Description Quantity Date Captured Comments Alcohol Use Details Unknown Caffeine Use Details Unknown Tobacco Use Status Smoking Status Light tobacco smoker Non-Smoking Tobacco Use Details : No Details Available : No Details Available Sex Female Gender Identity Vital Signs Date / Time: Height Weight BMI Pulse Rate Blood Pressure Temperature Respiratory Rate Body Surface Area Head Circumference Head Circ. Percentile Wt./Carlos. Percentile BMI percentile Pulse Ox Inhaled Ox 9:34 AM 65.00 in 119.204 kg (262.80 lbs) 43.7 3 kg/m eter (2) 69 /min 124/78 mm[Hg] 97.10 F 2.34 meter(2) 98 % Chief Complaint And Reason For Visit From encounter dated '04/22/2024 09:20'. allergies and asthma (chief complaint). Description: LV: 03/11/24Merna has asthma, food allergy, rhinitis, and contact dermatitis. She presents for follow up.Her significant GI symptoms, which she brought up at the last visit, have improved considerably. After her EGD, a peptic ulcer was identified. She is on protonix and sucralfate; this has made a big difference and allowed her to restart many of her other medications as below.Asthma - ACT: Merna has been able to restart her inhaler about 3 weeks ago. She is on Breo 100/25 ?cg 1 puff daily. She does have albuterol available PRN, used perhaps once weekly. Adverse Food ReactionShe avoids shellfish. She has epinephrine auto-injectors (epipen or auvi-q), due for refill today. RhinitisShe is on cetirizine and Flonase; the former held for testing today. Contact DermatitisShbatsheva had patch testing in ~2022. She reports fragrance, neomycin, and carba allergy. She avoids her identified allergens. Data03/25/24Environmental Immunocaps: +house dust miteTryptase: 4.Total IgE: 3Crab, Shrimp, Lobster, Clam, Oyster, Scallop IgE: &# 60;0.10 Reason For Referral Reason For Referral No Information Plan Of Treatment Date Type Action Status Goal Tobacco cessation counseling completed Goal Tobacco cessation counseling completed Goal Tobacco cessation counseling completed Appointment Yovana Thompson 4 Mo F/up BOOK ED History Of Present Illness Encounter Date Complaint History Of Prese nt Illness allergies and asthma LV: 03/11/24 She has asthma, food allergy, rhinitis, and contact dermatitis. She presents for follow up.Her significant GI symptoms, which she brought up at the last visit, have improved considerably. After her EGD, a peptic ulcer was identified. She is on protonix and sucralfate; this has made a big difference and allowed her to restart many of her other medications as below.Asthma - ACT: Merna has been able to restart her inhaler about 3 weeks ago. She is on Breo 100/25 c g 1 puff daily. She does have albuterol available PRN, used perhaps once weekly. Adverse Food ReactionShe avoids shellfish. She has epinephrine auto-injectors (epipen or auvi-q), due for refill today. RhinitisMerna is on cetirizine and Flonase; the former held for testing today. Contact DermatitisMerna had patch testing in ~2022. She reports fragrance, neomycin, and carba allergy. She avoids her identified allergens. Data03/25/24Environmental Immunocaps: +house dust miteTryptase: 4.Total IgE: 3Crab, Shrimp, Lobster, Clam, Oyster, Scallop IgE: <0.10 asthma LV: 12/02/23Merna has asthma, food allergy, rhinitis, and contact dermatitis. She presents for follow up.She reports muscle / bone pain over the last 3 months. She has had trouble eating. Her PCP is working on these symptoms. She will additionally see Dr. Huffman in GI soon. She will have a colonoscopy and EGD. She has been going to PT. She will see a collection support specialist soon. Asthma - ACT: Shbatsheva reports all medications make her feel sick (diarrhea or vomiting). She has not been using Breo due to this issue. Adverse Food ReactionShe avoids shellfish. She has epinephrine auto-injectors (epipen or auvi-q), not due for refill. She reports issues with codfish and tilapia recently. RhinitisNot on medications due to above issues. Contact DermatitisMerna had patch testing in ~2022. She reports fragrance, neomycin, and carba allergy. She avoids her identified allergens. Data12/02/23Total IgE: 3Crab, Shrimp, Lobster, Clam, Oyster, Scallop IgE: <0.10 allergies and asthma Adverse [place] d Reaction [...] of albuterol. She was seen in the [facility] ED on 11/27/23 for anaphylaxis. She [...] does provide adequate relief. She follows with [facility] (Dr. Gonzalez) for hearing loss but also rhinitis. Contact DermatitisShe had patch testing in ~2022. She reports [...] Information Instructions Date Instruction Additional Infor mation Giving encouragement to exercise Related to Body mass index [BMI] 40.0-44.9, adult Giving encouragement to exercise Related to Body mass index [BMI] 40.0-44.9, adult - start Breo 100/25 mcg 1 puff [...] [BMI] 40.0-44.9, adult Assessments Type Assessment Date assessment Body mass index [BMI] 40.0-44.9, adult assessment Moderate persistent asthma Apr- assessment Other allergic rhinitis 025 assessment Other adverse food reaction, sub sequent encounter Patient Care Teams Name Effective Dates (start - stop) Status Members No Information
--- OUTSIDE RECORDS SUMMARY | 2024-04-23 08:07 | XMS_ITS | Continuity of Care Document ---
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 tel:[phone] Family History Family Member Type Diagnosis Age At Onset No Information Payers Payer name Insurance type Covered republican ID Authoriza abena(s) [facility] [id number] Social History Type Description Quantity Date Captured Comments Sex Female Smoking Status No Information Chief Complaint And Reason For Visit No Information History Of Present Illness Encounter Date Complaint History Of Prese nt Illness No Information Instructions Date Instruction Additional Infor mation No Information Assessments Type Assessment Date No Information
[2024-04-23] MEDS: CYCLOBENZAPRINE HCL 10 MG TABLET PO (08:16)
== END 2024-04-23 08:54 | disposition home or self-care (01) ==
PROVIDERS: Emergency Provider Emergency Medicine; PCP Physician Assistant
DX: S16.1XXA Strain of muscle, fascia and tendon at neck level, initial encounter (principal); X58.XXXA Exposure to other specified factors, initial encounter; E78.5 Hyperlipidemia, unspecified; K21.9 Gastro-esophageal reflux disease without esophagitis; F41.8 Other specified anxiety disorders; J45.909 Unspecified asthma, uncomplicated; Z87.891 Personal history of nicotine dependence
CPT/HCPCS: 99283; A9270

== ENCOUNTER 2024-04-30 08:02 | Emergency (ER) | payer MEDICARE, MEDICAID, SELFPAY ==
--- NOTE | 2024-04-30 08:06 | ED.EXTPRO ---
HPI - Extremity Problem General Chief complaint: Extremity Problem,Nontraumatic Stated complaint: pain shoulder Time Seen by Provider: 04/30/24 08:04 Source: patient and old records reviewed Mode of arrival: ambulatory Limitations: no limitations History of Present Illness HPI Narrative: Sharona is a 38 year old female patient presenting to the clinic today with c/o neck and shoulder pain since October. She reports of Friday she felt a pop and the pain has gotten worse. Was seen in the ED and dx with cervical strain. CT of her cervical spine showed mild cervical spondylosis. Was given Rx muscle relaxer and ibuprofen. Has also seen neurosurgeon for cervical radiculopathy and had a MRI scheduled. MRI shows mild cervical spondylosis as well. Has been seen a chiropractor and a nerve doctor as well. States she is seeing 5 different provider for this. Also reports that she is dealing with a stomach ulcer at this time. States that she thinks she may have Lyme disease as she has been doing some research in regards to her pain. Related Data Home Medications ?Medication ?Instructions ?Recorded ?Confirmed ?Last Taken ?Type fluoxetine 20 mg capsule 20 mg PO DAILY 04/10/23 03/31/24 Unknown History atorvastatin 80 mg tablet 80 mg PO DAILY 12/30/23 03/31/24 Unknown History fluticasone furoate 100 See Rx Instructions .Route .COMPLEX 12/30/23 03/31/24 Unknown History mcg-vilanterol 25 mcg/dose inhalation powder (Breo Ellipta) lisinopril 10 mg tablet 10 mg PO DAILY 12/30/23 03/31/24 Unknown History progesterone micronized 200 mg 200 mg PO DAILY 12/30/23 03/31/24 Unknown History capsule fluticasone furoate 100 1 inh inhalation DAILY 03/22/24 03/31/24 Unknown History mcg-vilanterol 25 mcg/dose inhalation powder (Breo Ellipta) hydroxyzine HCl 10 mg tablet 10 mg PO TID PRN 03/22/24 03/31/24 Unknown History pantoprazole 20 mg tablet,delayed 20 mg PO QAM 03/22/24 03/31/24 Unknown History release sucralfate 1 gram tablet PO 03/22/24 03/31/24 Unknown History Allergies Allergy/AdvReac Type Severity Reaction Status Date / Time iodine Allergy Severe Anaphylactic Verified 04/30/24 08:16 Shock shellfish derived Allergy Severe Anaphylactic Verified 04/30/24 08:16 Shock Sulfa (Sulfonamide Allergy Intermediate Rash Verified 04/30/24 08:16 Antibiotics) adhesive tape Allergy Mild Rash Verified 04/30/24 08:16 benzalkonium chloride Allergy Mild Rash Verified 04/30/24 08:16 gramicidin D Allergy Mild Rash Verified 04/30/24 08:16 hydrocortisone Allergy Mild Rash Verified 04/30/24 08:16 neomycin Allergy Mild Rash Verified 04/30/24 08:16 polymyxin B Allergy Mild Rash Verified 04/30/24 08:16 simvastatin AdvReac Mild Rash Verified 04/30/24 08:16 SHELLFISH Allergy Severe Anaphylactic Uncoded 04/30/24 08:16 Shock BACITRACIN ZINC Allergy Mild Rash Uncoded 04/30/24 08:16 NEOMYCIN SULFATE Allergy Mild Rash Uncoded 04/30/24 08:16 POLYMYXIN B SULFATE Allergy Mild Rash Uncoded 04/30/24 08:16 Review of Systems Review of Systems: Pertinent positives per HPI. Patient denies any fever, chills, rash, headache, visual changes, dizziness, cough, runny nose, sore throat, shortness of breath, chest pain, palpitations, nausea, vomiting, diarrhea, constipation, abdominal pain, or any urinary issues. [facility] Past Medical History Medical History Ulcer IBS (irritable bowel syndrome) Asthma Anxiety Anxiety and depression GERD (gastroesophageal reflux disease) Hx of migraines Seizures Prediabetes Hyperlipidemia Mood disorder Surgical History Surgical History Previous section x2 History of tonsillectomy H/O: hysterectomy (~2019) Ingrown toenail H/O adenoidectomy Social History Social History Smoking status: Former smoker Second hand tobacco smoke exposure: No Alcohol intake: current Substance use: never Substance use type: does not use Do You Feel Safe in your Home?: No Lack of Transportation: No Lack of Food: Often True Current Housing: I Do Not Have Housing Concerned About Future Housing: YES Difficulty Paying Gas/Electric Bills: No Difficulty Paying for Meds: No Currently Unemployed: YES Education: Bachelor's Degree Difficulty w/ Childcare or Family Care: YES Living arrangements: with family Gender identity (if verbalized by the patient): Female Spiritual care concerns: No Agree to blood products: Yes Comments At the time of my signature, I reviewed and agree with the nursing past medical, surgical, social, and family history. There is no relevant family history pertinent to the patient complaint. Exam Narrative: General: Well-developed, morbidly obese, appears to be in pain Head: Normocephalic, atraumatic. Cardio: Regular rate and rhythm, s1 and s2 normal, no murmur appreciated. Resp: Clear to auscultation bilaterally, no rhonchi, rales, wheezing or rubs. Musculoskeletal: No deformity, tender to palpation over the base of the skull/cervical spine with pain radiating to her shoulder and down the posterior aspect of the upper arm/forearm, pain with ROM of the left shoulder, hand grasp in the left hand weaker than the right, peripheral pulse strong, no edema, no cyanosis, normal gait and station Course Course Emergency Course: Portions of this record may have been created with voice recognition software. Level of Care: Express Care Visit Vital Signs Vital signs: Vital signs reviewed MDM - Extremity (Nontraumatic) MDM Narrative Medical decision making narrative: At the time of visit patient is resting comfortably on the exam table. Patient appears to be nontoxic. Medications: Toradol 60 mg IM given in the clinic today Plan: I suspect patient has mild cervical spondylosis/chronic cervical radiculopathy. Patient already has an appointment to see her nerve doctor today. Toradol 60 mg IM was given in the clinic today for pain. Supportive measures were discussed with the patient and they voiced understanding discharge instructions and agrees to treatment plan. Return precautions reviewed Differential Diagnosis Differential diagnosis: Likely other (Cervical radiculopathy, chronic neck pain, cervical strain, osteoarthritis, nerve impingement) Discharge Plan Discharge Clinical Impression: Chronic cervical radiculopathy Patient Disposition: Home, Self-Care Condition: Stable Instructions: Antibiotic Form, Cervical Radiculopathy (ED), Chronic Neck Pain (DC) Additional Instructions: Toradol 60 mg IM given in the clinic today for pain. Be mindful of sedation precautions given to you if taking a muscle relaxer. Continue current medications as prescribed May use heat or ice to the affected area May use blue emu, lidocaine patches, or asper cream to affected area- do not apply heat or ice directly over cream- can cause burn. Follow up with your doctor today as scheduled Patient Language: Yi Prescriptions: No Action fluoxetine 20 mg capsule 20 mg PO DAILY ondansetron 8 mg tablet,disintegrating 8 mg PO Q4-6H PRN (Reason: nausea and vomiting) Qty: 20 0RF atorvastatin 80 mg tablet 80 mg PO DAILY lisinopril 10 mg tablet 10 mg PO DAILY progesterone micronized 200 mg capsule 200 mg PO DAILY fluticasone furoate-vilanterol [Breo Ellipta] 100-25 mcg/dose blister with device See Rx Instructions .ROUTE .COMPLEX Rx Instructions: Rx benzonatate 200 mg capsule 200 mg PO TID PRN (Reason: cough) Qty: 30 0RF albuterol sulfate 90 mcg/actuation HFA aerosol inhaler See Rx Instructions .ROUTE .COMPLEX Qty: 18 10RF Dose Instruction: INHALE ONE PUFF BY MOUTH EVERY 4 HOURS NEEDED FOR SHORTNESS OF BREATH OR FOR WHEEZING Rx Instructions: INHALE ONE PUFF BY MOUTH EVERY 4 HOURS NEEDED FOR SHORTNESS OF BREATH OR FOR WHEEZING fluticasone furoate-vilanterol [Breo Ellipta] 100-25 mcg/dose blister with device 1 inh inhalation DAILY sucralfate 1 gram tablet PO pantoprazole 20 mg tablet,delayed release (DR/EC) 20 mg PO QAM hydroxyzine HCl 10 mg tablet 10 mg PO TID PRN epinephrine 0.3 mg/0.3 mL auto-injector 0.3 mg IM ONCE Qty: 2 0RF Rx Instructions: as a single dose; may repeat once prazosin 1 mg capsule 1 mg PO BID Qty: 60 0RF ondansetron 4 mg tablet,disintegrating 4 mg PO Q8H PRN (Reason: nausea and vomiting) Qty: 14 0RF cyclobenzaprine 10 mg tablet 10 mg PO TID PRN (Reason: muscle spasm) Qty: 14 0RF cyclobenzaprine 10 mg tablet 10 mg PO BID PRN (Reason: muscle spasm) Qty: 14 0RF famotidine 10 mg tablet 10 mg PO BID Qty: 14 0RF cetirizine [Zyrtec] 10 mg tablet 10 mg PO DAILY Qty: 7 0RF acetaminophen 500 mg tablet 1,000 mg PO TID PRN (Reason: daniel) 7 Days Qty: 42 0RF ibuprofen 800 mg tablet 800 mg PO TID PRN (Reason: pain) 7 Days Qty: 21 0RF Follow-up/Referrals: UNKNOWN,DOCTOR [Primary Care Provider] - Time of Disposition: 08:53 Quality NIHSS Nursing Documentation ED NIHSS nursing documentation: reviewed/agree
[2024-04-30 08:11] VITALS: BP 142/115; PULSE 100; RESP 18; TEMP 36.1; O2SAT 100
[2024-04-30] MEDS: KETOROLAC (*BKC) 60 MG/2 ML VIAL IM (08:44)
== END 2024-04-30 09:09 | disposition home or self-care (01) ==
PROVIDERS: Emergency Provider Nurse Practitioner Family
DX: M54.12 Radiculopathy, cervical region (principal); Z87.891 Personal history of nicotine dependence
CPT/HCPCS: 96372; 99213; G0463; J1885

== ENCOUNTER 2024-05-07 08:36 | Outpatient (CLI) | payer MEDICARE, MEDICAID, SELFPAY ==
--- NOTE | ~2024-05-07 | XR_ITS ---
Thoracic spine: Clinical Indication: Back pain AP and lateral views were performed. No fracture is seen. There is normal alignment of the vertebrae. The intervertebral disc spaces demo nstrate minimal degenerative changes. Paravertebral soft tissues appear normal. Impression: Minimal degenerative disc disease in the thoracic spine. Reviewed, dictated and finalized at [facility]. Impression: Minimal degenerative disc disease in the thoracic spine.
--- NOTE | ~2024-05-07 | XR_ITS ---
Lumbosacral Spine: AP and lateral views Clinical History: Pain Findings: The normal lordotic curve is maintained. Probable mild chronic wedging deformity of L3.. Th ere is severe facet arthropathy at the lower lumbar spine. There is probable moderate degenerative di sc narrowing at L4-L5 and L5-S1. The sacroiliac joints are normally outlined. Impression: Mild chronic deformity L3. Moderate to advanced degenerative spondylosis at the lower lumbar spine, as above. Reviewed, dictated and finalized at [facility]. Impression: Mild chronic deformity L3. Moderate to advanced degenerative spondylosis at the lower lumbar spine, as abo ve.
== END 2024-05-07 08:37 | disposition home or self-care (01) ==
LOC: MICIMG 08:39
PROVIDERS: PCP Nurse Practitioner Adult Health; Visit Provider Physician Assistant
DX: M51.34 Other intervertebral disc degeneration, thoracic region (principal); M43.8X9 Other specified deforming dorsopathies, site unspecified; M47.816 Spondylosis without myelopathy or radiculopathy, lumbar region; M47.817 Spondylosis without myelopathy or radiculopathy, lumbosacral region
CPT/HCPCS: 72070; 72100

== ENCOUNTER 2025-01-04 10:02 | Emergency (ER) | payer MEDICAID, MEDICARE, SELFPAY ==
--- NOTE | 2025-01-04 10:05 | ED.URI ---
HPI - URI/Sore Throat General Chief Complaint: Upper Respiratory Infection Stated Complaint: Sinus Time Seen by Provider: 01/04/25 10:27 Source: patient and RN notes reviewed Mode of arrival: ambulatory Limitations: no limitations History of Present Illness HPI Narrative: 39-year-old female presents with concern of for 3 day history of low-grade temperature, ear pressure, nasal discharge, hoarse throat and cough. She reports it is painful to talk. She has been using Tylenol MD elicited complaint: sore throat Related Data Home Medications ?Medication ?Instructions ?Recorded ?Confirmed ?Last Taken ?Type atorvastatin 80 mg tablet 80 mg PO DAILY 12/30/23 03/31/24 Unknown History lisinopril 10 mg tablet 10 mg PO DAILY 12/30/23 03/31/24 Unknown History progesterone micronized 200 mg 200 mg PO DAILY 12/30/23 03/31/24 Unknown History capsule fluticasone furoate 100 1 inh inhalation DAILY 03/22/24 03/31/24 Unknown History mcg-vilanterol 25 mcg/dose inhalation powder (Breo Ellipta) hydroxyzine HCl 10 mg tablet 10 mg PO TID PRN 03/22/24 03/31/24 Unknown History pantoprazole 20 mg tablet,delayed 20 mg PO QAM 03/22/24 03/31/24 Unknown History release fluticasone propionate 50 1 inh inhalation Q12H 05/31/24 Unknown History mcg/actuation blister powder for inhalation hydroxyzine pamoate 25 mg capsule 25 mg PO TID 05/31/24 Unknown History (Vistaril) lurasidone 40 mg tablet 40 mg PO DAILY 05/31/24 Unknown History sucralfate 1 gram tablet PO QID 05/31/24 Unknown History fluoxetine 20 mg capsule mg 01/04/25 Unknown History hydroxyzine HCl 25 mg tablet mg 01/04/25 Unknown History olanzapine 2.5 mg tablet mg 01/04/25 Unknown History sumatriptan succinate 25 mg tablet mg PO 01/04/25 Unknown History trazodone 50 mg tablet mg 01/04/25 Unknown History Allergies Allergy/AdvReac Type Severity Reaction Status Date / Time iodine Allergy Severe Anaphylactic Verified 01/04/25 10:10 Shock shellfish derived Allergy Severe Anaphylactic Verified 01/04/25 10:10 Shock bacitracin Allergy Intermediate Rash Verified 01/04/25 10:10 Sulfa (Sulfonamide Allergy Intermediate Rash Verified 01/04/25 10:10 Antibiotics) adhesive tape Allergy Mild Rash Verified 01/04/25 10:10 benzalkonium chloride Allergy Mild Rash Verified 01/04/25 10:10 gramicidin D Allergy Mild Rash Verified 01/04/25 10:10 hydrocortisone Allergy Mild Rash Verified 01/04/25 10:10 ketoconazole Allergy Mild Rash Verified 01/04/25 10:20 neomycin Allergy Mild Rash Verified 01/04/25 10:10 polymyxin B Allergy Mild Rash Verified 01/04/25 10:10 simvastatin AdvReac Mild Rash Verified 01/04/25 10:10 Review of Systems Review of Systems: CONSTITUTIONAL: Reports malaise, chills, sweats, fever. EYES: Denies visual changes, redness, or discharge. ENT: Reports rhinorrhea, congestion, otalgia and sore throat. CARDIOVASCULAR: Denies chest pain, palpitations, or edema. RESPIRATORY: Reports cough. Denies dyspnea. GASTROINTESTINAL: Denies abdominal pain, nausea, vomiting, diarrhea SKIN: Denies rash or itching. MUSCULOSKELETAL: Denies myalgia. NEUROLOGIC: Denies headache. All systems reviewed & are unremarkable except as noted in HPI and below PMFSH Past Medical History Medical History Ulcer IBS (irritable bowel syndrome) Asthma Anxiety Anxiety and depression GERD (gastroesophageal reflux disease) Hx of migraines Seizures Prediabetes Hyperlipidemia Mood disorder Surgical History Surgical History Previous section x2 History of tonsillectomy H/O: hysterectomy (~2019) Ingrown toenail H/O adenoidectomy Social History Social History Smoking status: Former smoker Second hand tobacco smoke exposure: No Alcohol intake: current Substance use: never Substance use type: does not use Do You Feel Safe in your Home?: No Lack of Transportation: No Lack of Food: Often True Current Housing: I Do Not Have Housing Concerned About Future Housing: YES Difficulty Paying Gas/Electric Bills: No Difficulty Paying for Meds: No Currently Unemployed: YES Education: Bachelor's Degree Difficulty w/ Childcare or Family Care: YES Living arrangements: with family Gender identity (if verbalized by the patient): Female Spiritual care concerns: No Agree to blood products: Yes Comments At time of signature, agree with nursing past medical, surgical, social and family history. There is no relevant family history pertinent to the presenting complaint Exam Narrative: GENERAL: Well-appearing, well-nourished, and in no acute distress. HEAD: Normocephalic EYES: PERRLA, conjunctivae clear ENT: Nares clear, turbinates edematous and erythematous, clear discharge. Mucous membranes moist. TM pearly wade with dull light reflex bilaterally; no tragal tenderness. Oropharynx not erythematous without lesions. Tonsils not enlarged and without exudate, no drooling, no trismus, uvula midline. Hoarse voice NECK: Supple. No lymphadenopathy CHEST: Clear to auscultation, breath sounds equal. No wheezing, rhonchi, rales, or stridor. No respiratory distress, speaks in full sentences. HEART: Regular rate and rhythm. No murmur heard. SKIN: Warm, dry, no rash. NEURO: Alert and oriented x3. PSYCH: Normal mood and affect Course Course Emergency Course: Patient is aware of diagnosis, understands and agrees to treatment plan. Anticipatory guidance given. Patient agrees to follow-up as directed and is aware of reasons to seek care at the emergency department. Portions of this record may have been created with voice recognition software Level of Care: Express Care Visit Vital Signs Vital signs: Reviewed. MDM - URI/Sore Throat MDM Narrative Medical decision making narrative: Differential diagnosis considered: Matt virus, strep pharyngitis, allergic rhinitis, upper respiratory tract infection, sinusitis, rhinosinusitis, nasopharyngitis. viral pharyngitis, otitis media, otitis externa, pneumonia, bronchitis, viral cough syndrome, viral syndrome, and influenza. Exam findings show no acute concerns or changes; patient is non-toxic appearing and is in no distress. Patient is appropriate for outpatient treatment and follow-up. Lab Data Attestation: I reviewed the patient's lab results. Critical Care Time Critical Care Time Critical Care Time: No Discharge Plan Discharge Clinical Impression: Upper respiratory infection Patient Disposition: Home Condition: Stable Instructions: Antibiotic Form, Upper Respiratory Infection (ED) Additional Instructions: Your rapid COVID and flu tests are negative Your rapid strep swab was negative today at [facility]. A throat culture will be sent to the laboratory for further testing. If the test is positive, you will receive a phone call within 48 hours and an appropriate antibiotic will be initiated at that time. Your symptoms are likely due to a viral illness, which is not treated with antibiotics. Viral symptoms can be present for up to a few weeks. -Alternate Tylenol and Motrin per package directions for fever or pain. -Antihistamine medication such as Benadryl at night and Zyrtec during the day can help improve symptoms. -Eat and drink things that are easy to swallow, like tea or soup, or popsicles to suck on. -Oral rinses such as: Salt water gargles and/or may use topical anesthetic (eg. Chloraseptic spray) or lozenges to relieve dryness or throat pain). -Frequent hand washing or hand grader meat is one of the best ways to prevent spread of infection. -Follow up with primary care provider in 2-3 days if condition is not improving; or seek ER visit if you have trouble breathing, cannot drink enough fluids, have muffled voice, difficulty opening your mouth, or severe swelling. Patient Language: Nicaraguan Prescriptions: New dextromethorphan-guaifenesin [Mucinex DM] 60-1,200 mg tablet extended release 12 hr 1 tablet PO Q12H Qty: 12 0RF methylprednisolone [Medrol (Gonsalo)] 4 mg tablets,dose pack See Rx Instructions .ROUTE .COMPLEX Qty: 21 0RF Rx Instructions: orally per package directions No Action atorvastatin 80 mg tablet 80 mg PO DAILY lisinopril 10 mg tablet 10 mg PO DAILY progesterone micronized 200 mg capsule 200 mg PO DAILY trazodone 50 mg tablet sumatriptan succinate 25 mg tablet PO olanzapine 2.5 mg tablet hydroxyzine HCl 25 mg tablet fluoxetine 20 mg capsule albuterol sulfate 90 mcg/actuation HFA aerosol inhaler See Rx Instructions .ROUTE .COMPLEX Qty: 18 10RF Dose Instruction: INHALE ONE PUFF BY MOUTH EVERY 4 HOURS NEEDED FOR SHORTNESS OF BREATH OR FOR WHEEZING Rx Instructions: INHALE ONE PUFF BY MOUTH EVERY 4 HOURS NEEDED FOR SHORTNESS OF BREATH OR FOR WHEEZING fluticasone furoate-vilanterol [Breo Ellipta] 100-25 mcg/dose blister with device 1 inh inhalation DAILY pantoprazole 20 mg tablet,delayed release (DR/EC) 20 mg PO QAM hydroxyzine HCl 10 mg tablet 10 mg PO TID PRN sucralfate 1 gram tablet PO QID hydroxyzine pamoate [Vistaril] 25 mg capsule 25 mg PO TID lurasidone 40 mg tablet 40 mg PO DAILY Rx Instructions: must administer with food (at least 350 calories) fluticasone propionate 50 mcg/actuation blister with device 1 inh inhalation Q12H epinephrine 0.3 mg/0.3 mL auto-injector 0.3 mg IM ONCE Qty: 2 0RF Rx Instructions: as a single dose; may repeat once cetirizine [Zyrtec] 10 mg tablet 10 mg PO DAILY Qty: 7 0RF Follow-up/Referrals: David,LACHO Edmonds [Primary Care Provider, Unknown] Stand Alone Forms: Work/School Release IP Time of Disposition: 10:36
[2025-01-04 10:11] VITALS: BP 146/85; PULSE 82; RESP 20; TEMP 36.2; O2SAT 100
[2025-01-04 10:30] LABS: EDSTREPNEGPOS1 Negative (Negative)
[2025-01-04 10:37] LABS: EDCOVIDSCREEN Negative (Negative); EDINFLUASCREEN Negative (Negative); EDINFLUBSCREEN Negative (Negative)
== END 2025-01-04 10:41 | disposition home or self-care (01) ==
PROVIDERS: Emergency Provider Nurse Practitioner; PCP Physician Assistant
DX: J06.9 Acute upper respiratory infection, unspecified (principal); Z20.822 Contact with and (suspected) exposure to COVID-19; E78.5 Hyperlipidemia, unspecified; R73.03 Prediabetes; K21.9 Gastro-esophageal reflux disease without esophagitis; J45.909 Unspecified asthma, uncomplicated; F41.9 Anxiety disorder, unspecified; F32.A Depression, unspecified; Z87.891 Personal history of nicotine dependence
CPT/HCPCS: 87081; 87426; 87804; 87880; 99213; G0463